=== PATIENT | female | born 1950 | race Hispanic/Latino ===

== ENCOUNTER 2019-06-26 18:21 | Emergency (ER) | payer MEDICARE, OTHER ==
[~2019-06-26] VITALS: Ht 165.1 cm; Wt 59.0 kg
--- OUTSIDE RECORDS SUMMARY | 2019-06-26 18:25 | XMS REPORT ---
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 Allergies, Adverse Reactions, Alerts Allergy Name Allergy Type Status Severity Reaction(s) Onset Date Inactive Date Treating Clinician Comments Sulfa (Sulfonamide Antibiotics) DA Active U 2019-03-04 00:00:00 aspirin DA Active U 2019-03-04 00:00:00 doxycycline DA Active U 2019-03-04 00:00:00 levofloxacin DA Active U 2019-03-04 00:00:00 cefdinir DA Active U 2019-03-04 00:00:00 Medications This patient has no known medications. Encounters Start Date/Time End Date/Time Encounter Type Admission Type Attending Clinicians Care Facility Care Department Encounter ID 2019-05-20 19:01:00 2019-05-20 19:01:00 Emergency E [facility] [id number] 2019-04-11 08:44:00 2019-04-11 08:44:00 Outpatient [facility] [id number] 2019-03-25 12:45:00 2019-03-25 12:45:00 Outpatient [facility] [id number] 2018-10-29 12:30:00 2018-10-29 12:30:00 Outpatient [facility] [id number] Results Test Description Test Time Test Comments Text Results Atomic Results Result Comments GLUBED 2019-04-29 12:25:00 GLUBED (test code=GLUBED) 160 MG/DL 70-110 Performed by certified strand forming machine operator at [facility] [id number] 08:51:00* Test Item Value Reference Range Comments GLUBED (test code=GLUBED) 138 MG/DL 70-110 Performed by certified strand forming machine operator at [facility] CBC W/AUTO [id number] 07:45:00* Test Item Value Reference Range Comments WHITE BLOOD CELL (test code=WBC) 7.42 x10 3/uL 4.5-11.0 RED BLOOD CELL (test code=RBC) 2.97 x10 6/uL 3.54-5.02 HEMOGLOBIN (test code=HGB) 8.2 g/dL 11.0-15.0 HEMATOCRIT (test code=HCT) 26.9 % 33.0-45.0 MEAN CELL VOLUME (test code=MCV) 90.6 fL 81.0-99.0 MEAN CELL HGB (test code=MCH) 27.6 pg 27.0-33.0 MEAN CELL HGB CONCETRATION (test code=MCHC) 30.5 g/dL 33.0-37.0 RED CELL DISTRIBUTION WIDTH CV (test code=RDW) 15.2 % 11.5-14.5 RED CELL DISTRIBUTION WIDTH SD (test code=RDW-SD) 50.6 fL 37.0-54.0 PLATELET COUNT (test code=PLT) 318 x10 3/uL 150-400 MEAN PLATELET VOLUME (test code=MPV) 9.7 fL 7.0-9.0 NEUTROPHIL % (test code=NT%) 80.4 % 56.0-77.0 IMMATURE GRANULOCYTE % (test code=IG%) 0.7 % 0.0-2.0 LYMPHOCYTE % (test code=LY%) 11.3 % 14.0-32.0 MONOCYTE % (test code=MO%) 7.0 % 4.8-9.0 EOSINOPHIL % (test code=EO%) 0.5 % 0.3-3.7 BASOPHIL % (test code=BA%) 0.1 % 0.0-2.0 NUCLEATED RBC % (test code=NRBC%) 0.0 % 0-0 NEUTROPHIL # (test code=NT#) 5.96 x10 3/uL 2.0-7.6 IMMATURE GRANULOCYTE # (test code=IG#) 0.05 x10 3/uL 0.00-0.03 LYMPHOCYTE # (test code=LY#) 0.84 x10 3/uL 1.0-3.8 MONOCYTE # (test code=MO#) 0.52 x10 3/uL 0.1-0.8 EOSINOPHIL # (test code=EO#) 0.04 x10 3/uL 0.0-0.2 BASOPHIL # (test code=BA#) 0.01 x10 3/uL 0.0-0.2 NUCLEATED RBC # (test code=NRBC#) 0.00 x10 3/uL 0.0-0.1 MANUAL DIFF REQUIRED (test code=MDIFF) NO BASIC METABOLIC [id number] 05:41:00* Test Item Value Reference Range Comments SODIUM (test code=NA) 132 mEq/L 134-147 POTASSIUM (test code=K) 4.8 mEq/L 3.4-5.0 CHLORIDE (test code=CL) 108 mEq/L 100-108 CARBON DIOXIDE (test code=CO2) 16 mEq/L 21-33 ANION GAP (test code=GAP) 13 0-20 GLUCOSE (test code=GLU) 174 mg/dL 70-110 BLOOD UREA NITROGEN (test code=BUN) 43 mg/dL 7-18 GLOMERULAR FILTRATION RATE (test code=GFR) 40.7 80-90 Units of measure=ml/min/1.73 m2 CREATININE (test code=CREAT) 1.3 mg/dL 0.6-1.3 CALCIUM (test code=CA) 7.5 mg/dL 8.0-10.5 [id number] 05:41:00* Test Item Value Reference Range Comments PHOSPHOROUS (test code=PHOS) 2.8 MG/DL 2.5-4.9 [id number] 05:41:00* Test Item Value Reference Range Comments MAGNESIUM (test code=MAG) 1.80 mg/dL 1.8-2.4 [id number] 05:19:00* Test Item Value Reference Range Comments GLUBED (test code=GLUBED) 138 MG/DL 70-110 Performed by certified strand forming machine operator at [facility] [id number] 18:03:00* Test Item Value Reference Range Comments GLUBED (test code=GLUBED) 161 MG/DL 70-110 Performed by certified strand forming machine operator at [facility] [id number] 10:36:00* Test Item Value Reference Range Comments GLUBED (test code=GLUBED) 96 MG/DL 70-110 Performed by certified strand forming machine operator at [facility] CBC W/AUTO [id number] 08:46:00* Test Item Value Reference Range Comments WHITE BLOOD CELL (test code=WBC) 10.16 x10 3/uL 4.5-11.0 RED BLOOD CELL (test code=RBC) 3.27 x10 6/uL 3.54-5.02 HEMOGLOBIN (test code=HGB) 9.3 g/dL 11.0-15.0 HEMATOCRIT (test code=HCT) 30.9 % 33.0-45.0 MEAN CELL VOLUME (test code=MCV) 94.5 fL 81.0-99.0 MEAN CELL HGB (test code=MCH) 28.4 pg 27.0-33.0 MEAN CELL HGB CONCETRATION (test code=MCHC) 30.1 g/dL 33.0-37.0 RED CELL DISTRIBUTION WIDTH CV (test code=RDW) 15.3 % 11.5-14.5 RED CELL DISTRIBUTION WIDTH SD (test code=RDW-SD) 53.0 fL 37.0-54.0 PLATELET COUNT (test code=PLT) 303 x10 3/uL 150-400 MEAN PLATELET VOLUME (test code=MPV) 10.0 fL 7.0-9.0 NEUTROPHIL % (test code=NT%) 72.1 % 56.0-77.0 IMMATURE GRANULOCYTE % (test code=IG%) 0.7 % 0.0-2.0 LYMPHOCYTE % (test code=LY%) 17.0 % 14.0-32.0 MONOCYTE % (test code=MO%) 8.0 % 4.8-9.0 EOSINOPHIL % (test code=EO%) 1.9 % 0.3-3.7 BASOPHIL % (test code=BA%) 0.3 % 0.0-2.0 NUCLEATED RBC % (test code=NRBC%) 0.0 % 0-0 NEUTROPHIL # (test code=NT#) 7.33 x10 3/uL 2.0-7.6 IMMATURE GRANULOCYTE # (test code=IG#) 0.07 x10 3/uL 0.00-0.03 LYMPHOCYTE # (test code=LY#) 1.73 x10 3/uL 1.0-3.8 MONOCYTE # (test code=MO#) 0.81 x10 3/uL 0.1-0.8 EOSINOPHIL # (test code=EO#) 0.19 x10 3/uL 0.0-0.2 BASOPHIL # (test code=BA#) 0.03 x10 3/uL 0.0-0.2 NUCLEATED RBC # (test code=NRBC#) 0.00 x10 3/uL 0.0-0.1 MANUAL DIFF REQUIRED (test code=MDIFF) NO BASIC METABOLIC [id number] 08:19:00* Test Item Value Reference Range Comments SODIUM (test code=NA) 132 mEq/L 134-147 POTASSIUM (test code=K) 4.7 mEq/L 3.4-5.0 CHLORIDE (test code=CL) 111 mEq/L 100-108 CARBON DIOXIDE (test code=CO2) 13 mEq/L 21-33 ANION GAP (test code=GAP) 13 0-20 GLUCOSE (test code=GLU) 105 mg/dL 70-110 BLOOD UREA NITROGEN (test code=BUN) 47 mg/dL 7-18 GLOMERULAR FILTRATION RATE (test code=GFR) 40.7 80-90 Units of measure=ml/min/1.73 m2 CREATININE (test code=CREAT) 1.3 mg/dL 0.6-1.3 CALCIUM (test code=CA) 8.1 mg/dL 8.0-10.5 [id number] 08:19:00* Test Item Value Reference Range Comments PHOSPHOROUS (test code=PHOS) 2.6 MG/DL 2.5-4.9 [id number] 08:19:00* Test Item Value Reference Range Comments MAGNESIUM (test code=MAG) 1.80 mg/dL 1.8-2.4 [id number] 07:31:00* Test Item Value Reference Range Comments GLUBED (test code=GLUBED) 134 MG/DL 70-110 Performed by certified strand forming machine operator at [facility] [id number] 07:31:00* Test Item Value Reference Range Comments GLUBED (test code=GLUBED) 124 MG/DL 70-110 Performed by certified strand forming machine operator at [facility] TOTAL IRON BINDING [id number] 16:14:00* Test Item Value Reference Range Comments SERUM IRON (test code=IRON) 22 mcg/dL 35-150 TOTAL IRON BINDING CAPACITY (test code=TIBC) 91 mcg/dL 260-445 UIBC (test code=UIBC) 69 mcg/dL IRON SATURATION (test code=FESAT) 24.2 % 34 VITAMIN [id number] 16:14:00* Test Item Value Reference Range Comments VITAMIN B12 (test code=VITB12) 988 pg/mL 193-986 [id number] 16:14:00* Test Item Value Reference Range Comments FERRITIN (test code=JASIEL) 202.9 ng/mL 11.0-306.8 VITAMIN D [id number] 16:14:00* Test Item Value Reference Range Comments VITAMIN D 25-HYDROXY (test code=VITD25) 18.5 ng/mL 30-100 SPECIMEN 1+ HEMOLYZED.Results known to be adversely affected by hemolysis are: Potassium Magnesium LDH Phosphorus TOTAL IRON BINDING [id number] 16:12:00* Test Item Value Reference Range Comments SERUM IRON (test code=IRON) 22 mcg/dL 35-150 TOTAL IRON BINDING CAPACITY (test code=TIBC) 91 mcg/dL 260-445 UIBC (test code=UIBC) 69 mcg/dL IRON SATURATION (test code=FESAT) 24.2 % VITAMIN [id number] 16:12:00* Test Item Value Reference Range Comments VITAMIN B12 (test code=VITB12) 988 pg/mL 193-986 [id number] 16:12:00* Test Item Value Reference Range Comments FERRITIN (test code=JASIEL) 202.9 ng/mL 11.0-306.8 VITAMIN D [id number] 16:12:00* Test Item Value Reference Range Comments VITAMIN D 25-HYDROXY (test code=VITD25) ng/mL 30-100 [id number] 14:10:00* Test Item Value Reference Range Comments GLUBED (test code=GLUBED) 101 MG/DL 70-110 Performed by certified strand forming machine operator at [facility] BASIC METABOLIC [id number] 11:00:00* Test Item Value Reference Range Comments SODIUM (test code=NA) 134 mEq/L 134-147 POTASSIUM (test code=K) 4.6 mEq/L 3.4-5.0 CHLORIDE (test code=CL) 108 mEq/L 100-108 CARBON DIOXIDE (test code=CO2) 20 mEq/L 21-33 ANION GAP (test code=GAP) 11 0-20 GLUCOSE (test code=GLU) 96 mg/dL 70-110 BLOOD UREA NITROGEN (test code=BUN) 53 mg/dL 7-18 GLOMERULAR FILTRATION RATE (test code=GFR) 34.5 80-90 Units of measure=ml/min/1.73 m2 CREATININE (test code=CREAT) 1.5 mg/dL 0.6-1.3 CALCIUM (test code=CA) 7.2 mg/dL 8.0-10.5 BASIC METABOLIC [id number] 10:57:00* Test Item Value Reference Range Comments SODIUM (test code=NA) 134 mEq/L 134-147 POTASSIUM (test code=K) 4.6 mEq/L 3.4-5.0 CHLORIDE (test code=CL) 108 mEq/L 100-108 CARBON DIOXIDE (test code=CO2) 20 mEq/L 21-33 ANION GAP (test code=GAP) 11 0-20 GLUCOSE (test code=GLU) 96 mg/dL 70-110 BLOOD UREA NITROGEN (test code=BUN) 53 mg/dL 7-18 GLOMERULAR FILTRATION RATE (test code=GFR) 80-90 CREATININE (test code=CREAT) mg/dL 0.6-1.3 CALCIUM (test code=CA) 7.2 mg/dL 8.0-10.5 LACTIC ACID [id number] 10:46:00* Test Item Value Reference Range Comments LACTIC ACID POC (test code=LACTP) 1.6 MMOL/L 0.90-1.70 Performed by certified strand forming machine operator at [facility] CHEMISTRY 8 [id number] 10:46:00* Test Item Value Reference Range Comments ISTAT-SODIUM (test code=NAP) MMOL/L 134-147 ISTAT-POTASSIUM (test code=KP) MMOL/L 3.4-5.0 ISTAT-CHLORIDE (test code=CLP) MMOL/L 100-108 ISTAT CARBON DIOXIDE (test code=ISTAT-CO2) mmol/L 21-33 ISTAT CALCIUM IONIZED (test code=ISTAT-IQRA) MG/DL 1.12-1.32 ISTAT-GLUCOSE (test code=GLUP) MG/DL 70-110 ISTAT-BUN (test code=BUNP) MG/DL 7-18 BEDSIDE CREATININE (test code=CREATBED) MG/DL 0.6-1.3 GLOMERULAR FILTRATION RATE POC (test code=GFRBED) 25 ML/MIN CHEMISTRY 8 [id number] 10:46:00* Test Item Value Reference Range Comments ISTAT-SODIUM (test code=NAP) 124 MMOL/L 134-147 ISTAT-POTASSIUM (test code=KP) 5.0 MMOL/L 3.4-5.0 ISTAT-CHLORIDE (test code=CLP) 95 MMOL/L 100-108 Performed by certified strand forming machine operator at [facility] ISTAT CARBON DIOXIDE (test code=ISTAT-CO2) 20.0 mmol/L 21-33 ISTAT CALCIUM IONIZED (test code=ISTAT-IQRA) 1.09 MG/DL 1.12-1.32 ISTAT-GLUCOSE (test code=GLUP) 180 MG/DL 70-110 ISTAT-BUN (test code=BUNP) 54 MG/DL 7-18 BEDSIDE CREATININE (test code=CREATBED) 2.1 MG/DL 0.6-1.3 GLOMERULAR FILTRATION RATE POC (test code=GFRBED) 25 ML/MIN CBC W/AUTO [id number] 10:40:00* Test Item Value Reference Range Comments WHITE BLOOD CELL (test code=WBC) 14.51 x10 3/uL 4.5-11.0 RED BLOOD CELL (test code=RBC) 2.77 x10 6/uL 3.54-5.02 HEMOGLOBIN (test code=HGB) 7.9 g/dL 11.0-15.0 HEMATOCRIT (test code=HCT) 25.1 % 33.0-45.0 MEAN CELL VOLUME (test code=MCV) 90.6 fL 81.0-99.0 MEAN CELL HGB (test code=MCH) 28.5 pg 27.0-33.0 MEAN CELL HGB CONCETRATION (test code=MCHC) 31.5 g/dL 33.0-37.0 RED CELL DISTRIBUTION WIDTH CV (test code=RDW) 15.0 % 11.5-14.5 RED CELL DISTRIBUTION WIDTH SD (test code=RDW-SD) 50.2 fL 37.0-54.0 PLATELET COUNT (test code=PLT) 278 x10 3/uL 150-400 MEAN PLATELET VOLUME (test code=MPV) 9.7 fL 7.0-9.0 NEUTROPHIL % (test code=NT%) 84.6 % 56.0-77.0 IMMATURE GRANULOCYTE % (test code=IG%) 0.8 % 0.0-2.0 LYMPHOCYTE % (test code=LY%) 6.5 % 14.0-32.0 MONOCYTE % (test code=MO%) 7.1 % 4.8-9.0 EOSINOPHIL % (test code=EO%) 0.7 % 0.3-3.7 BASOPHIL % (test code=BA%) 0.3 % 0.0-2.0 NUCLEATED RBC % (test code=NRBC%) 0.0 % 0-0 NEUTROPHIL # (test code=NT#) 12.27 x10 3/uL 2.0-7.6 IMMATURE GRANULOCYTE # (test code=IG#) 0.12 x10 3/uL 0.00-0.03 LYMPHOCYTE # (test code=LY#) 0.95 x10 3/uL 1.0-3.8 MONOCYTE # (test code=MO#) 1.03 x10 3/uL 0.1-0.8 EOSINOPHIL # (test code=EO#) 0.10 x10 3/uL 0.0-0.2 BASOPHIL # (test code=BA#) 0.04 x10 3/uL 0.0-0.2 NUCLEATED RBC # (test code=NRBC#) 0.00 x10 3/uL 0.0-0.1 MANUAL DIFF REQUIRED (test code=MDIFF) NO TROPONIN-I [id number] 10:33:00* Test Item Value Reference Range Comments TROPONIN-I RAPID (test code=TROPIRAP) 0.00 ng/mL 0.00-0.08 Performed by certified strand forming machine operator at [facility] Negative: <=0.08 Positive: >=0.09An elevated troponin value alone is not sufficient todiagnose a myocardial infarction. Rather, the patient sclinical presentation (history, physical exam) and ECGshould be used in conjunction with troponin in thediagnostic evaluation of suspected myocardial infarction. Aserial sampling protocol is recommended to facilitate the identification of temporal changes in troponin levels characteristic of [place]. HEPATIC FUNCTION [id number] 18:25:00* Test Item Value Reference Range Comments TOTAL PROTEIN (test code=PROT) 5.3 g/dL 6.4-8.2 ALBUMIN (test code=ALB) 1.80 g/dL 3.4-5.0 BILIRUBIN TOTAL (test code=BILT) 0.3 MG/DL <1.5 BILIRUBIN DIRECT (test code=BILD) < 0.10 MG/DL 0.0-0.30 BILIRUBIN INDIRECT (test code=BILIND) 0.20 MG/DL SGOT/AST (test code=AST) 8 IUnit/L 15-37 SGPT/ALT (test code=ALT) < 6 IUnit/L 15-65 ALKALINE PHOSPHATASE TOTAL (test code=ALKP) 92 IUnit/L 20-125 [id number] 18:25:00* Test Item Value Reference Range Comments LIPASE (test code=LIP) 49 IUnit/L 73-393 [id number] 18:25:00* Test Item Value Reference Range Comments MAGNESIUM (test code=MAG) 1.70 mg/dL 1.8-2.4 LACTIC ACID [id number] 18:18:00* Test Item Value Reference Range Comments LACTIC ACID POC (test code=LACTP) 1.6 MMOL/L 0.90-1.70 Performed by certified strand forming machine operator at [facility] PROTHROMBIN [id number] 18:18:00* Test Item Value Reference Range Comments PROTHROMBIN TIME PATIENT (test code=PTP) 13.7 SECONDS 9.3-12.9 INTERNATIONAL NORMAL RATIO (test code=INR) 1.3 0.8-1.2 TARGET INR BY INDICATION Indication INR1. Prophylaxis of venous thrombosis 2.0 - 3.0 (orthopedic surgery), Prophylaxis of venous thrombosis (other than high-risk surgery), Treatment of Deep Vein Thrombosis/Pulmonary Embolism, Prevention of systemic embolism - Tissue heart valves, Acute Myocardial Infarction (to prevent systemic embolism), Valvular heart disease, Atrial Fibrillation, Bileaflet mechanical valve in aortic position.2. Mechanical prosthetic valves (high risk), 2.5 - 3.5 Presence of Lupus Anticoagulant or Antiphospholipid Antibodies, Prevention of systemic embolism - Acute Myocardial Infarction (to prevent recurrent infarct). THROMBOPLASTIN TIME [id number] 18:18:00* Test Item Value Reference Range Comments THROMBOPLASTIN TIME PARTIAL (test code=PTT) 26.5 Seconds 25.0-39.5 Therapeutic Range: 50.4 - 88.3 Seconds Effective 08/13/2018 CHEMISTRY 8 [id number] 18:17:00* Test Item Value Reference Range Comments ISTAT-SODIUM (test code=NAP) MMOL/L 134-147 ISTAT-POTASSIUM (test code=KP) MMOL/L 3.4-5.0 ISTAT-CHLORIDE (test code=CLP) MMOL/L 100-108 ISTAT CARBON DIOXIDE (test code=ISTAT-CO2) mmol/L 21-33 ISTAT CALCIUM IONIZED (test code=ISTAT-IQRA) MG/DL 1.12-1.32 ISTAT-GLUCOSE (test code=GLUP) MG/DL 70-110 ISTAT-BUN (test code=BUNP) MG/DL 7-18 BEDSIDE CREATININE (test code=CREATBED) MG/DL 0.6-1.3 GLOMERULAR FILTRATION RATE POC (test code=GFRBED) 25 ML/MIN CHEMISTRY 8 [id number] 18:17:00* Test Item Value Reference Range Comments ISTAT-SODIUM (test code=NAP) 124 MMOL/L 134-147 ISTAT-POTASSIUM (test code=KP) 5.0 MMOL/L 3.4-5.0 ISTAT-CHLORIDE (test code=CLP) 95 MMOL/L 100-108 Performed by certified strand forming machine operator at [facility] ISTAT CARBON DIOXIDE (test code=ISTAT-CO2) 20.0 mmol/L 21-33 ISTAT CALCIUM IONIZED (test code=ISTAT-IQRA) 1.09 MG/DL 1.12-1.32 ISTAT-GLUCOSE (test code=GLUP) 180 MG/DL 70-110 ISTAT-BUN (test code=BUNP) 54 MG/DL 7-18 BEDSIDE CREATININE (test code=CREATBED) 2.1 MG/DL 0.6-1.3 GLOMERULAR FILTRATION RATE POC (test code=GFRBED) 25 ML/MIN TROPONIN-I [id number] 18:16:00* Test Item Value Reference Range Comments TROPONIN-I RAPID (test code=TROPIRAP) 0.00 ng/mL 0.00-0.08 Performed by certified strand forming machine operator at [facility] Negative: <=0.08 Positive: >=0.09An elevated troponin value alone is not sufficient todiagnose a myocardial infarction. Rather, the patient sclinical presentation (history, physical exam) and ECGshould be used in conjunction with troponin in thediagnostic evaluation of suspected myocardial infarction. Aserial sampling protocol is recommended to facilitate the identification of temporal changes in troponin levels characteristic of [place]. - CT HEAD/BRAIN W/O [id number] 18:12:00 Name: IQRA MATTHEW [facility] : 1950 Age/S: 68 / F [address] [place] [address] Unit #: [id number] Loc: [place] [address] Phys: Forest Bell MD Acct: [id number] Dis Date: Status: REG ER PHONE #: [phone] Exam Date: 04/26/2019 1748 FAX #: [phone] Reason: weakness EXAMS: CPT CODE: [id number] CT HEAD/BRAIN W/O CONT [address] HEAD INDICATION: weakness. TECHNIQUE: Unenhanced CT was performed from the skull vertex to the foramen magnum with axial, coronal and sagittal reconstructions. CT imaging performed at this location utilizes radiation dose optimization technique which includes one or more of the followin) Automated exposure control; 2) Adjustment of the mA and/or kV according to patient's size; 3) Use of iterative reconstruction techniques. DLP (mGy- cm): 420 COMPARISONS: None. FINDINGS: The paranasal sinuses are clear as visualized. There are trace bilateral mastoid air cell effusions. There are calcifications within the left optic globe and hyperdensity of the vitreous humor. There is a severe burden of atherosclerotic vascular calcification of the intracranial arteries. There are nonspecific calcifications of the basal ganglia. These are likely physiologic in a patient this age. There is mild ventriculomegaly due to white matter volume loss. There is no hydrocephalus. There is a moderately severe burden of hypodense lesions in the bilateral frontal parietal white matter. There is moderate generalized brain parenchymal volume loss. There is no cerebral mass ef fect, midline shift, intracranial hemorrhage or acute large vessel territo ry cerebral cortical edema. IMPRESSION: 1. Th ere is a moderately severe burden of hypodense lesions in the bilateral frontal parietal white matter. These are most likely chronic changes o f small vessel ischemic disease but there is no comparison available to evaluate stability. I cannot entirely exclude an acute or subacute lacu parvin infarct in this setting. If there is clinical concern of acute isch emia, consider follow-up MRI. 2. There is no cerebral mass effect, midl ine shift, intracranial hemorrhage or acute large vessel territory cereb ral cortical edema. 3. There are calcifications within the left optic g lobe and hyperdensity of the vitreous humor. These are probably surgica l PAGE 1 Signed Report (CONTINUED) Name: IQRA MATTHEW [facility] B: 1950 Age/S: 68 / F [address] [place] [address] Unit #: [id number] Loc: [place] [address] Phys: Forest Bell MD Acct: [id number] D is Date: Status: REG ER PHONE #: [phone] Exam Date: 04/26/2019 1748 FAX #: Reason: weakness EXAMS: CPT CODE: [id number] CT HEAD/BRAIN W/O CONT 81017 <Continued> changes. I cannot exclude posterior chamber hemorrhage in the left optic globe. 4. There are trace bilateral mastoid air cell effusions. at 1812 Reported and signed by: Jaime Chua D.O. CC: Tori Valdez Technologist:Ramy Hernandez, RT(R) CTDI: DLP: Trnscb Date/Time: 04/26/2019 (1811) [id number] Orig Print D/T: S: 04/26/2019 (1814) PAGE 2 Signed Report UA RFLX MICR CULT IF [id number] 18:11:00* Test Item Value Reference Range Comments UA COLOR (test code=COLU) YELLOW YEL/STRAW UA APPEARANCE (test code=APPU) SL CLOUDY CLEAR UA GLUCOSE DIPSTICK (test code=DGLUU) NEGATIVE NEGATIVE UA BILIRUBIN DIPSTICK (test code=BILU) NEGATIVE NEGATIVE UA KETONE DIPSTICK (test code=KETU) NEGATIVE NEGATIVE UA SPECIFIC GRAVITY (test code=SGU) 1.010 1.005-1.030 UA BLOOD DIPSTICK (test code=OTONIEL) NEGATIVE NEGATIVE UA PH DIPSTICK (test code=CARLOS) 5.0 5.0-7.0 UA PROTEIN DIPSTICK (test code=PROU) NEGATIVE NEGATIVE UA UROBILINIOGEN DIPSTICK (test code=URO) 0.2 mg/dL 0.2-1.0 UA NITRITE DIPSTICK (test code=BRENNEN) NEGATIVE NEGATIVE UA LEUKOCYTE ESTERASE DIPSTICK (test code=LEUU) 2+ NEGATIVE UA WBC (test code=WBCU) 21-50 WBC/HPF 0-3 UA RBC (test code=RBCU) 0-3 RBC/HPF 0-3 UA WBC NO REFLEX (test code=WBCUCL) 21-50 WBC/HPF 0-3 UA BACTERIA (test code=BACU) 4+ /HPF NONE SEEN UA SQUAMOUS CELLS (test code=SQU) 0-5 /HPF NONE SEEN UA MUCUS (test code=MUCU) TRACE /LPF NONE SEEN Indication for culture: Dysuria/FrequencySpecimen Description: CLEAN CATCH CBC W/AUTO [id number] 18:07:00* Test Item Value Reference Range Comments WHITE BLOOD CELL (test code=WBC) 18.15 x10 3/uL 4.5-11.0 RED BLOOD CELL (test code=RBC) 3.00 x10 6/uL 3.54-5.02 HEMOGLOBIN (test code=HGB) 8.5 g/dL 11.0-15.0 HEMATOCRIT (test code=HCT) 27.0 % 33.0-45.0 MEAN CELL VOLUME (test code=MCV) 90.0 fL 81.0-99.0 MEAN CELL HGB (test code=MCH) 28.3 pg 27.0-33.0 MEAN CELL HGB CONCETRATION (test code=MCHC) 31.5 g/dL 33.0-37.0 RED CELL DISTRIBUTION WIDTH CV (test code=RDW) 15.2 % 11.5-14.5 RED CELL DISTRIBUTION WIDTH SD (test code=RDW-SD) 50.1 fL 37.0-54.0 PLATELET COUNT (test code=PLT) 315 x10 3/uL 150-400 MEAN PLATELET VOLUME (test code=MPV) 9.9 fL 7.0-9.0 NEUTROPHIL % (test code=NT%) 87.7 % 56.0-77.0 IMMATURE GRANULOCYTE % (test code=IG%) 0.5 % 0.0-2.0 LYMPHOCYTE % (test code=LY%) 4.2 % 14.0-32.0 MONOCYTE % (test code=MO%) 7.1 % 4.8-9.0 EOSINOPHIL % (test code=EO%) 0.4 % 0.3-3.7 BASOPHIL % (test code=BA%) 0.1 % 0.0-2.0 NUCLEATED RBC % (test code=NRBC%) 0.0 % 0-0 NEUTROPHIL # (test code=NT#) 15.92 x10 3/uL 2.0-7.6 IMMATURE GRANULOCYTE # (test code=IG#) 0.09 x10 3/uL 0.00-0.03 LYMPHOCYTE # (test code=LY#) 0.76 x10 3/uL 1.0-3.8 MONOCYTE # (test code=MO#) 1.29 x10 3/uL 0.1-0.8 EOSINOPHIL # (test code=EO#) 0.07 x10 3/uL 0.0-0.2 BASOPHIL # (test code=BA#) 0.02 x10 3/uL 0.0-0.2 NUCLEATED RBC # (test code=NRBC#) 0.00 x10 3/uL 0.0-0.1 MANUAL DIFF REQUIRED (test code=MDIFF) NO [id number] 09:10:00* Test Item Value Reference Range Comments TACROLIMUS (test code=TACRO) 4.5 ng/mL 2.0-20.0 Trough (immediately following transplant) 15.0 Trough (steady state, 2 weeks or more after transplant): 3.0 - 8.0 Detection Limit=1.0 Performed by LC-MS/MS technology. This test was developed and its performance characteristics determined by [facility]. It has not been cleared or approved by the Food and Drug Administration.Performed At: [address] [place], [place] [id number] Sanjai MD Ph:[phone] COMMENTS: PLEASE DRAW BEFORE GIVING AM [id number] 13:50:00* Test Item Value Reference Range Comments GLUBED (test code=GLUBED) 158 MG/DL 70-110 Performed by certified strand forming machine operator at [facility] BASIC METABOLIC [id number] 08:00:00* Test Item Value Reference Range Comments SODIUM (test code=NA) 140 mEq/L 134-147 POTASSIUM (test code=K) 4.0 mEq/L 3.4-5.0 CHLORIDE (test code=CL) 112 mEq/L 100-108 CARBON DIOXIDE (test code=CO2) 22 mEq/L 21-33 ANION GAP (test code=GAP) 10 0-20 GLUCOSE (test code=GLU) 147 mg/dL 70-110 BLOOD UREA NITROGEN (test code=BUN) 27 mg/dL 7-18 GLOMERULAR FILTRATION RATE (test code=GFR) 49.4 80-90 Units of measure=ml/min/1.73 m2 CREATININE (test code=CREAT) 1.1 mg/dL 0.6-1.3 CALCIUM (test code=CA) 7.2 mg/dL 8.0-10.5 [id number] 08:00:00* Test Item Value Reference Range Comments PHOSPHOROUS (test code=PHOS) 2.3 MG/DL 2.5-4.9 [id number] 08:00:00* Test Item Value Reference Range Comments MAGNESIUM (test code=MAG) 1.90 mg/dL 1.8-2.4 [id number] 05:56:00* Test Item Value Reference Range Comments GLUBED (test code=GLUBED) 144 MG/DL 70-110 Performed by certified strand forming machine operator at [facility] [id number] 00:24:00* Test Item Value Reference Range Comments GLUBED (test code=GLUBED) 200 MG/DL 70-110 Performed by certified strand forming machine operator at [facility] [id number] 17:08:00* Test Item Value Reference Range Comments GLUBED (test code=GLUBED) 261 MG/DL 70-110 Performed by certified strand forming machine operator at [facility] [id number] 11:34:00* Test Item Value Reference Range Comments GLUBED (test code=GLUBED) 165 MG/DL 70-110 Performed by certified strand forming machine operator at [facility] BASIC METABOLIC [id number] 07:49:00* Test Item Value Reference Range Comments SODIUM (test code=NA) 140 mEq/L 134-147 POTASSIUM (test code=K) 4.0 mEq/L 3.4-5.0 CHLORIDE (test code=CL) 115 mEq/L 100-108 CARBON DIOXIDE (test code=CO2) 20 mEq/L 21-33 ANION GAP (test code=GAP) 9 0-20 GLUCOSE (test code=GLU) 110 mg/dL 70-110 BLOOD UREA NITROGEN (test code=BUN) 31 mg/dL 7-18 GLOMERULAR FILTRATION RATE (test code=GFR) 44.7 80-90 Units of measure=ml/min/1.73 m2 CREATININE (test code=CREAT) 1.2 mg/dL 0.6-1.3 CALCIUM (test code=CA) 7.3 mg/dL 8.0-10.5 [id number] 07:49:00* Test Item Value Reference Range Comments PHOSPHOROUS (test code=PHOS) 2.6 MG/DL 2.5-4.9 [id number] 07:49:00* Test Item Value Reference Range Comments MAGNESIUM (test code=MAG) 1.90 mg/dL 1.8-2.4 CALCIUM [id number] 07:49:00* Test Item Value Reference Range Comments CALCIUM IONIZED (test code=IQRA) 1.17 MMOL/L 1.12-1.32 VITAMIN D [id number] 07:49:00* Test Item Value Reference Range Comments VITAMIN D 25-HYDROXY (test code=VITD25) 19.9 ng/mL 30-100 BASIC METABOLIC [id number] 07:30:00* Test Item Value Reference Range Comments SODIUM (test code=NA) 140 mEq/L 134-147 POTASSIUM (test code=K) 4.0 mEq/L 3.4-5.0 CHLORIDE (test code=CL) 115 mEq/L 100-108 CARBON DIOXIDE (test code=CO2) 20 mEq/L 21-33 ANION GAP (test code=GAP) 9 0-20 GLUCOSE (test code=GLU) 110 mg/dL 70-110 BLOOD UREA NITROGEN (test code=BUN) 31 mg/dL 7-18 GLOMERULAR FILTRATION RATE (test code=GFR) 44.7 80-90 Units of measure=ml/min/1.73 m2 CREATININE (test code=CREAT) 1.2 mg/dL 0.6-1.3 CALCIUM (test code=CA) 7.3 mg/dL 8.0-10.5 [id number] 07:30:00* Test Item Value Reference Range Comments PHOSPHOROUS (test code=PHOS) 2.6 MG/DL 2.5-4.9 [id number] 07:30:00* Test Item Value Reference Range Comments MAGNESIUM (test code=MAG) 1.90 mg/dL 1.8-2.4 CALCIUM [id number] 07:30:00* Test Item Value Reference Range Comments CALCIUM IONIZED (test code=IQRA) 1.17 MMOL/L 1.12-1.32 VITAMIN D [id number] 07:30:00* Test Item Value Reference Range Comments VITAMIN D 25-HYDROXY (test code=VITD25) ng/mL 30-100 CBC W/AUTO [id number] 07:28:00* Test Item Value Reference Range Comments WHITE BLOOD CELL (test code=WBC) 8.71 x10 3/uL 4.5-11.0 RED BLOOD CELL (test code=RBC) 3.21 x10 6/uL 3.54-5.02 HEMOGLOBIN (test code=HGB) 9.0 g/dL 11.0-15.0 HEMATOCRIT (test code=HCT) 29.5 % 33.0-45.0 MEAN CELL VOLUME (test code=MCV) 91.9 fL 81.0-99.0 MEAN CELL HGB (test code=MCH) 28.0 pg 27.0-33.0 MEAN CELL HGB CONCETRATION (test code=MCHC) 30.5 g/dL 33.0-37.0 RED CELL DISTRIBUTION WIDTH CV (test code=RDW) 17.7 % 11.5-14.5 RED CELL DISTRIBUTION WIDTH SD (test code=RDW-SD) 59.7 fL 37.0-54.0 PLATELET COUNT (test code=PLT) 211 x10 3/uL 150-400 MEAN PLATELET VOLUME (test code=MPV) 10.6 fL 7.0-9.0 NEUTROPHIL % (test code=NT%) 71.2 % 56.0-77.0 IMMATURE GRANULOCYTE % (test code=IG%) 0.6 % 0.0-2.0 LYMPHOCYTE % (test code=LY%) 17.5 % 14.0-32.0 MONOCYTE % (test code=MO%) 7.7 % 4.8-9.0 EOSINOPHIL % (test code=EO%) 2.5 % 0.3-3.7 BASOPHIL % (test code=BA%) 0.5 % 0.0-2.0 NUCLEATED RBC % (test code=NRBC%) 0.0 % 0-0 NEUTROPHIL # (test code=NT#) 6.21 x10 3/uL 2.0-7.6 IMMATURE GRANULOCYTE # (test code=IG#) 0.05 x10 3/uL 0.00-0.03 LYMPHOCYTE # (test code=LY#) 1.52 x10 3/uL 1.0-3.8 MONOCYTE # (test code=MO#) 0.67 x10 3/uL 0.1-0.8 EOSINOPHIL # (test code=EO#) 0.22 x10 3/uL 0.0-0.2 BASOPHIL # (test code=BA#) 0.04 x10 3/uL 0.0-0.2 NUCLEATED RBC # (test code=NRBC#) 0.00 x10 3/uL 0.0-0.1 MANUAL DIFF REQUIRED (test code=MDIFF) NO BASIC METABOLIC [id number] 07:18:00* Test Item Value Reference Range Comments SODIUM (test code=NA) mEq/L 134-147 POTASSIUM (test code=K) mEq/L 3.4-5.0 CHLORIDE (test code=CL) mEq/L 100-108 CARBON DIOXIDE (test code=CO2) mEq/L 21-33 ANION GAP (test code=GAP) 0-20 GLUCOSE (test code=GLU) mg/dL 70-110 BLOOD UREA NITROGEN (test code=BUN) mg/dL 7-18 GLOMERULAR FILTRATION RATE (test code=GFR) 80-90 CREATININE (test code=CREAT) mg/dL 0.6-1.3 CALCIUM (test code=CA) mg/dL 8.0-10.5 [id number] 07:18:00* Test Item Value Reference Range Comments PHOSPHOROUS (test code=PHOS) MG/DL 2.5-4.9 [id number] 07:18:00* Test Item Value Reference Range Comments MAGNESIUM (test code=MAG) mg/dL 1.8-2.4 CALCIUM [id number] 07:18:00* Test Item Value Reference Range Comments CALCIUM IONIZED (test code=IQRA) 1.17 MMOL/L 1.12-1.32 VITAMIN D [id number] 07:18:00* Test Item Value Reference Range Comments VITAMIN D 25-HYDROXY (test code=VITD25) ng/mL 30-100 [id number] 05:42:00* Test Item Value Reference Range Comments GLUBED (test code=GLUBED) 108 MG/DL 70-110 Performed by certified strand forming machine operator at [facility] [id number] 23:54:00* Test Item Value Reference Range Comments GLUBED (test code=GLUBED) 134 MG/DL 70-110 Performed by certified strand forming machine operator at [facility] [id number] 17:50:00* Test Item Value Reference Range Comments GLUBED (test code=GLUBED) 175 MG/DL 70-110 Performed by certified strand forming machine operator at [facility] [id number] 11:37:00* Test Item Value Reference Range Comments GLUBED (test code=GLUBED) 130 MG/DL 70-110 Performed by certified strand forming machine operator at [facility] BASIC METABOLIC [id number] 08:00:00* Test Item Value Reference Range Comments SODIUM (test code=NA) 143 mEq/L 134-147 POTASSIUM (test code=K) 3.6 mEq/L 3.4-5.0 CHLORIDE (test code=CL) 121 mEq/L 100-108 CARBON DIOXIDE (test code=CO2) 14 mEq/L 21-33 ANION GAP (test code=GAP) 12 0-20 GLUCOSE (test code=GLU) 135 mg/dL 70-110 BLOOD UREA NITROGEN (test code=BUN) 33 mg/dL 7-18 GLOMERULAR FILTRATION RATE (test code=GFR) 49.4 80-90 Units of measure=ml/min/1.73 m2 CREATININE (test code=CREAT) 1.1 mg/dL 0.6-1.3 CALCIUM (test code=CA) 5.7 mg/dL 8.0-10.5 [id number] 08:00:00* Test Item Value Reference Range Comments PHOSPHOROUS (test code=PHOS) 2.3 MG/DL 2.5-4.9 [id number] 08:00:00* Test Item Value Reference Range Comments MAGNESIUM (test code=MAG) 1.30 mg/dL 1.8-2.4 [id number] 06:21:00* Test Item Value Reference Range Comments GLUBED (test code=GLUBED) 157 MG/DL 70-110 Performed by certified strand forming machine operator at [facility] [id number] 00:21:00* Test Item Value Reference Range Comments GLUBED (test code=GLUBED) 214 MG/DL 70-110 Performed by certified strand forming machine operator at [facility] URINALYSIS [id number] 18:18:00* Test Item Value Reference Range Comments UA COLOR (test code=COLU) YELLOW YEL/STRAW UA APPEARANCE (test code=APPU) SL CLOUDY CLEAR UA GLUCOSE DIPSTICK (test code=DGLUU) NEGATIVE NEGATIVE UA BILIRUBIN DIPSTICK (test code=BILU) NEGATIVE NEGATIVE UA KETONE DIPSTICK (test code=KETU) NEGATIVE NEGATIVE UA SPECIFIC GRAVITY (test code=SGU) 1.008 1.005-1.030 UA BLOOD DIPSTICK (test code=OTONIEL) NEGATIVE NEGATIVE UA PH DIPSTICK (test code=CARLOS) 5.0 5.0-7.0 UA PROTEIN DIPSTICK (test code=PROU) NEGATIVE NEGATIVE UA UROBILINIOGEN DIPSTICK (test code=URO) 0.2 mg/dL 0.2-1.0 UA NITRITE DIPSTICK (test code=BRENNEN) NEGATIVE NEGATIVE UA LEUKOCYTE ESTERASE DIPSTICK (test code=LEUU) 1+ NEGATIVE UA RBC (test code=RBCU) 0-3 RBC/HPF 0-3 UA WBC NO REFLEX (test code=WBCUCL) 4-9 WBC/HPF 0-3 UA BACTERIA (test code=BACU) NONE SEEN /HPF NONE SEEN UA SQUAMOUS CELLS (test code=SQU) 0-5 /HPF NONE SEEN UA MUCUS (test code=MUCU) TRACE /LPF NONE SEEN UR PROTEIN [id number] 18:18:00* Test Item Value Reference Range Comments UR PROTEIN RANDOM (test code=PROTU) 19 mg/dL Note: Change in UNITS of MEASUREMENT. The Reference Range and Method Performance specificationshave not been established for this fluid. The test resultshould be correlated into the clinical context forinterpretation. UR CREATININE [id number] 18:18:00* Test Item Value Reference Range Comments UR CREATININE RANDOM (test code=CREATU) 56.7 mg/dL The Reference Range and Method Performance specificationshave not been established for this fluid. The test resultshould be correlated into the clinical context forinterpretation. URINALYSIS [id number] 18:08:00* Test Item Value Reference Range Comments UA COLOR (test code=COLU) YELLOW YEL/STRAW UA APPEARANCE (test code=APPU) SL CLOUDY CLEAR UA GLUCOSE DIPSTICK (test code=DGLUU) NEGATIVE NEGATIVE UA BILIRUBIN DIPSTICK (test code=BILU) NEGATIVE NEGATIVE UA KETONE DIPSTICK (test code=KETU) NEGATIVE NEGATIVE UA SPECIFIC GRAVITY (test code=SGU) 1.008 1.005-1.030 UA BLOOD DIPSTICK (test code=OTONIEL) NEGATIVE NEGATIVE UA PH DIPSTICK (test code=CARLOS) 5.0 5.0-7.0 UA PROTEIN DIPSTICK (test code=PROU) NEGATIVE NEGATIVE UA UROBILINIOGEN DIPSTICK (test code=URO) 0.2 mg/dL 0.2-1.0 UA NITRITE DIPSTICK (test code=BRENNEN) NEGATIVE NEGATIVE UA LEUKOCYTE ESTERASE DIPSTICK (test code=LEUU) 1+ NEGATIVE UA RBC (test code=RBCU) 0-3 RBC/HPF 0-3 UA WBC NO REFLEX (test code=WBCUCL) 4-9 WBC/HPF 0-3 UA BACTERIA (test code=BACU) NONE SEEN /HPF NONE SEEN UA SQUAMOUS CELLS (test code=SQU) 0-5 /HPF NONE SEEN UA MUCUS (test code=MUCU) TRACE /LPF NONE SEEN UR PROTEIN [id number] 18:08:00* Test Item Value Reference Range Comments UR PROTEIN RANDOM (test code=PROTU) mg/dL UR CREATININE [id number] 18:08:00* Test Item Value Reference Range Comments UR CREATININE RANDOM (test code=CREATU) mg/dL [id number] 18:08:00* Test Item Value Reference Range Comments GLUBED (test code=GLUBED) 249 MG/DL 70-110 Performed by certified strand forming machine operator at [facility] CBC W/AUTO [id number] 11:15:00* Test Item Value Reference Range Comments WHITE BLOOD CELL (test code=WBC) 13.88 x10 3/uL 4.5-11.0 RED BLOOD CELL (test code=RBC) 3.55 x10 6/uL 3.54-5.02 HEMOGLOBIN (test code=HGB) 10.0 g/dL 11.0-15.0 HEMATOCRIT (test code=HCT) 32.9 % 33.0-45.0 MEAN CELL VOLUME (test code=MCV) 92.7 fL 81.0-99.0 MEAN CELL HGB (test code=MCH) 28.2 pg 27.0-33.0 MEAN CELL HGB CONCETRATION (test code=MCHC) 30.4 g/dL 33.0-37.0 RED CELL DISTRIBUTION WIDTH CV (test code=RDW) 17.4 % 11.5-14.5 RED CELL DISTRIBUTION WIDTH SD (test code=RDW-SD) 59.6 fL 37.0-54.0 PLATELET COUNT (test code=PLT) 157 x10 3/uL 150-400 MEAN PLATELET VOLUME (test code=MPV) 11.6 fL 7.0-9.0 NEUTROPHIL % (test code=NT%) 86.2 % 56.0-77.0 IMMATURE GRANULOCYTE % (test code=IG%) 0.6 % 0.0-2.0 LYMPHOCYTE % (test code=LY%) 4.4 % 14.0-32.0 MONOCYTE % (test code=MO%) 7.5 % 4.8-9.0 EOSINOPHIL % (test code=EO%) 0.9 % 0.3-3.7 BASOPHIL % (test code=BA%) 0.4 % 0.0-2.0 NUCLEATED RBC % (test code=NRBC%) 0.0 % 0-0 NEUTROPHIL # (test code=NT#) 11.98 x10 3/uL 2.0-7.6 IMMATURE GRANULOCYTE # (test code=IG#) 0.08 x10 3/uL 0.00-0.03 LYMPHOCYTE # (test code=LY#) 0.61 x10 3/uL 1.0-3.8 MONOCYTE # (test code=MO#) 1.04 x10 3/uL 0.1-0.8 EOSINOPHIL # (test code=EO#) 0.12 x10 3/uL 0.0-0.2 BASOPHIL # (test code=BA#) 0.05 x10 3/uL 0.0-0.2 NUCLEATED RBC # (test code=NRBC#) 0.00 x10 3/uL 0.0-0.1 MANUAL DIFF REQUIRED (test code=MDIFF) NO SLIDE REVIEWED, CONSISTENT WITH AUTO DIFF. CBC W/AUTO [id number] 11:15:00* Test Item Value Reference Range Comments WHITE BLOOD CELL (test code=WBC) 13.88 x10 3/uL 4.5-11.0 RED BLOOD CELL (test code=RBC) 3.55 x10 6/uL 3.54-5.02 HEMOGLOBIN (test code=HGB) 10.0 g/dL 11.0-15.0 HEMATOCRIT (test code=HCT) 32.9 % 33.0-45.0 MEAN CELL VOLUME (test code=MCV) 92.7 fL 81.0-99.0 MEAN CELL HGB (test code=MCH) 28.2 pg 27.0-33.0 MEAN CELL HGB CONCETRATION (test code=MCHC) 30.4 g/dL 33.0-37.0 RED CELL DISTRIBUTION WIDTH CV (test code=RDW) 17.4 % 11.5-14.5 RED CELL DISTRIBUTION WIDTH SD (test code=RDW-SD) 59.6 fL 37.0-54.0 PLATELET COUNT (test code=PLT) 157 x10 3/uL 150-400 MEAN PLATELET VOLUME (test code=MPV) 11.6 fL 7.0-9.0 NEUTROPHIL % (test code=NT%) 86.2 % 56.0-77.0 IMMATURE GRANULOCYTE % (test code=IG%) 0.6 % 0.0-2.0 LYMPHOCYTE % (test code=LY%) 4.4 % 14.0-32.0 MONOCYTE % (test code=MO%) 7.5 % 4.8-9.0 EOSINOPHIL % (test code=EO%) 0.9 % 0.3-3.7 BASOPHIL % (test code=BA%) 0.4 % 0.0-2.0 NUCLEATED RBC % (test code=NRBC%) 0.0 % 0-0 NEUTROPHIL # (test code=NT#) 11.98 x10 3/uL 2.0-7.6 IMMATURE GRANULOCYTE # (test code=IG#) 0.08 x10 3/uL 0.00-0.03 LYMPHOCYTE # (test code=LY#) 0.61 x10 3/uL 1.0-3.8 MONOCYTE # (test code=MO#) 1.04 x10 3/uL 0.1-0.8 EOSINOPHIL # (test code=EO#) 0.12 x10 3/uL 0.0-0.2 BASOPHIL # (test code=BA#) 0.05 x10 3/uL 0.0-0.2 NUCLEATED RBC # (test code=NRBC#) 0.00 x10 3/uL 0.0-0.1 MANUAL DIFF REQUIRED (test code=MDIFF) NO SLIDE REVIEWED, CONSISTENT WITH AUTO DIFF. BASIC METABOLIC [id number] 10:37:00* Test Item Value Reference Range Comments SODIUM (test code=NA) 133 mEq/L 134-147 POTASSIUM (test code=K) 4.7 mEq/L 3.4-5.0 CHLORIDE (test code=CL) 109 mEq/L 100-108 CARBON DIOXIDE (test code=CO2) 17 mEq/L 21-33 ANION GAP (test code=GAP) 12 0-20 GLUCOSE (test code=GLU) 115 mg/dL 70-110 BLOOD UREA NITROGEN (test code=BUN) 44 mg/dL 7-18 GLOMERULAR FILTRATION RATE (test code=GFR) 32.1 80-90 Units of measure=ml/min/1.73 m2 CREATININE (test code=CREAT) 1.6 mg/dL 0.6-1.3 CALCIUM (test code=CA) 7.5 mg/dL 8.0-10.5 BASIC METABOLIC [id number] 10:37:00* Test Item Value Reference Range Comments SODIUM (test code=NA) 133 mEq/L 134-147 POTASSIUM (test code=K) 4.7 mEq/L 3.4-5.0 CHLORIDE (test code=CL) 109 mEq/L 100-108 CARBON DIOXIDE (test code=CO2) 17 mEq/L 21-33 ANION GAP (test code=GAP) 12 0-20 GLUCOSE (test code=GLU) 115 mg/dL 70-110 BLOOD UREA NITROGEN (test code=BUN) 44 mg/dL 7-18 GLOMERULAR FILTRATION RATE (test code=GFR) 32.1 80-90 Units of measure=ml/min/1.73 m2 CREATININE (test code=CREAT) 1.6 mg/dL 0.6-1.3 CALCIUM (test code=CA) 7.5 mg/dL 8.0-10.5 BASIC METABOLIC [id number] 10:33:00* Test Item Value Reference Range Comments SODIUM (test code=NA) 133 mEq/L 134-147 POTASSIUM (test code=K) 4.7 mEq/L 3.4-5.0 CHLORIDE (test code=CL) 109 mEq/L 100-108 CARBON DIOXIDE (test code=CO2) 17 mEq/L 21-33 ANION GAP (test code=GAP) 12 0-20 GLUCOSE (test code=GLU) 115 mg/dL 70-110 BLOOD UREA NITROGEN (test code=BUN) 44 mg/dL 7-18 GLOMERULAR FILTRATION RATE (test code=GFR) 80-90 CREATININE (test code=CREAT) mg/dL 0.6-1.3 CALCIUM (test code=CA) 7.5 mg/dL 8.0-10.5 BASIC METABOLIC [id number] 10:33:00* Test Item Value Reference Range Comments SODIUM (test code=NA) 133 mEq/L 134-147 POTASSIUM (test code=K) 4.7 mEq/L 3.4-5.0 CHLORIDE (test code=CL) 109 mEq/L 100-108 CARBON DIOXIDE (test code=CO2) 17 mEq/L 21-33 ANION GAP (test code=GAP) 12 0-20 GLUCOSE (test code=GLU) 115 mg/dL 70-110 BLOOD UREA NITROGEN (test code=BUN) 44 mg/dL 7-18 GLOMERULAR FILTRATION RATE (test code=GFR) 80-90 CREATININE (test code=CREAT) mg/dL 0.6-1.3 CALCIUM (test code=CA) 7.5 mg/dL 8.0-10.5 CBC W/AUTO [id number] 10:23:00* Test Item Value Reference Range Comments WHITE BLOOD CELL (test code=WBC) 13.88 x10 3/uL 4.5-11.0 RED BLOOD CELL (test code=RBC) 3.55 x10 6/uL 3.54-5.02 HEMOGLOBIN (test code=HGB) 10.0 g/dL 11.0-15.0 HEMATOCRIT (test code=HCT) 32.9 % 33.0-45.0 MEAN CELL VOLUME (test code=MCV) 92.7 fL 81.0-99.0 MEAN CELL HGB (test code=MCH) 28.2 pg 27.0-33.0 MEAN CELL HGB CONCETRATION (test code=MCHC) 30.4 g/dL 33.0-37.0 RED CELL DISTRIBUTION WIDTH CV (test code=RDW) 17.4 % 11.5-14.5 RED CELL DISTRIBUTION WIDTH SD (test code=RDW-SD) 59.6 fL 37.0-54.0 PLATELET COUNT (test code=PLT) 157 x10 3/uL 150-400 MEAN PLATELET VOLUME (test code=MPV) 11.6 fL 7.0-9.0 NEUTROPHIL % (test code=NT%) % 56.0-77.0 LYMPHOCYTE % (test code=LY%) % 14.0-32.0 NEUTROPHIL # (test code=NT#) x10 3/uL 2.0-7.6 LYMPHOCYTE # (test code=LY#) x10 3/uL 1.0-3.8 MANUAL DIFF REQUIRED (test code=MDIFF) [id number] 06:29:00* Test Item Value Reference Range Comments GLUBED (test code=GLUBED) 120 MG/DL 70-110 Performed by certified strand forming machine operator at [facility] [id number] 00:26:00* Test Item Value Reference Range Comments GLUBED (test code=GLUBED) 171 MG/DL 70-110 Performed by certified strand forming machine operator at [facility] PROCALCITONIN (PCT)2019-03-04 20:11:00* Test Item Value Reference Range Comments PROCALCITONIN (PCT) (test code=PROCAL) 1.06 ng/mL 0.00-0.05 PROCALCITONIN (PCT) NORMAL RANGE (ADULT): <0.05 NG/ML. * a concentration <0.5 ng/mL represents a low risk of severe sepsis and/or septic shock.* a concentration >2 ng/mL represents a high risk of severe sepsis and/or septic shock.Nevertheless, concentrations <0.5 ng/mL do not exclude aninfection, on account of localized infections (withoutsystemic signs) which can be associated with such lowconcentrations, or a systemic infection in its initialstages (< 6 hours). Furthermore, increased procalcitonincan occur without infection. PCT concentrations between 0.5and 2.0 ng/mL should be interpreted taking into account thepatient's history. It is recommended to retest PCT within6-24 hours if any concentrations <2 ng/mL are obtained. [id number] 19:54:00* Test Item Value Reference Range Comments GLUBED (test code=GLUBED) 251 MG/DL 70-110 Performed by certified strand forming machine operator at [facility] - CT ABD PELVIS W/O [id number] 17:35:00 Name: IQRA MATTHEW [facility] : 1950 Age/S: 68 / F [address] [place] [address] Unit #: [id number] Loc: [place] [address] Phys: Maximo Roblero MD Acct: [id number] Dis Date: Status: REG ER PHONE #: [phone] Exam Date: 03/04/2019 1711 FAX #: [phone] Reason: pelvic pain, diarrhea EXAMS: CPT CODE: [id number] CT ABD PELVIS W/O CONT 87739 CT ABDOMEN AND PELVIS WITHOUT CONTRAST INDICATION: Right lower quadrant pelvic pain, diarrhea. TECHNIQUE: Unenhanced CT imaging of the abdomen and pelvis with axial, coronal and sagittal reconstructions. CT imaging performed at this location utilizes radiation dose optimization technique which includes one or more of the followin) Automated exposure control; 2) Adjustment of the mA and/or kV according to patient's size; 3) Use of iterative reconstruction techniques. DLP (mGy-cm): 563 COMPARISONS: None. FINDINGS: There is no acute osseous fracture or di slocation. There is mild body wall anasarca. There are chronic arriaza rgical changes of ventral abdominal wall herniorrhaphy. There is no recur rent hernia. There is a severe burden of atherosclerotic calcification of the coronary arteries. There is moderate at herosclerotic vascular calcification of the aorta. The aorta reveals no an eurysm or acute process. The inferior vena cava reveals no acute process. There is a 5 mm noncalcified subpleural right lower lobe pulmonary nodule on axial image 10 of series 2. There is a 3 mm noncalcified right middle lobe pulmonary nodule on axial image 7 of series 2. There is a 4 mm noncalcified left lower lobe subpleural pulmonary nodule on axial image 15 of series 2. The lung bases reveal no acute process. There is no acute hepatic process. The gallbladder is surgically absent. The pancreas reveals no acute process. There is moderate pancre atic atrophy. The spleen reveals no acute process. There are calcified granulomas in the spleen. The adrenal glands reve al no acute process or mass. PAGE 1 Signed Report (CONTINUED) Name: IQRA MATTHEW [facility] : 1950 Age/S: 68 / F [address] Unit #: [id number] Loc: [place] [address] Phys: Maximo Roblero MD Acct: [id number] Dis Date: Status: REG ER PHONE #: [phone] Exam Date: 03/04/2019 1711 FAX #: [phone] Reason: pelvic pain, diarrhea EXAMS: CPT CODE: [id number] CT ABD PELVIS W/O CONT 59728 < Continued> There is symmetric moderately severe bilateral renal atrophy. There is a 1 cm simple fluid density benign superior pole right renal cyst. No specific additional follow-up recommended. There is no acute renal process. The urinary bladder reveals no acute process. There is no acute reproductive structure abnormality. There are benign vascular calcifications in the pelvis. There is no intra-abdominal free gas. There is no intra-abdominal free fluid. There is no lymphadenopathy. There is an incidental 2nd duodenal segment diverticulum. There is no bowel perforation or bowel obstruction. There is acute colitis from the cecum to the hepatic flexure and from the splenic flexure to the rectum. There is wall thickening of the proximal appendix measuring 11 mm diameter, which normalizes in the appendiceal body and tail as the appendix is further away from the cecum that is acutely inflamed. There is no evidence of acute primary appendicitis. IMPRESSION: 1. There is acute colitis from the cecum to the hepatic flexure and from the splenic flexure to the rectum. 2. There is reactive wall thickening of the proximal appendix measuring 11 mm diameter, which normalizes in the appendiceal body and tail as the appendix traverses further away from the acutely inflamed cecum. This is consistent with secondary appendiceal edema due to the primary cecal inflammatory process. There is no evidence of acute primary appendicitis. 3. There is no bowel obstruction or perforation. 4. There are noncalcified pulmonary nodules, the largest measures 5 mm in the right lower lobe. If there are no risk factors for development of pulmonary malignancy, no follow-up would be recommended. If there are risk factors for develo pment of malignancy, consider a 12 month follow-up CT of the chest to ev aluate long-term stability. (Leonardo et al., Fleischner Society, 2 017). 5. There is a severe burden of atherosclerotic calcification of t he coronary arteries. 6. There are additional nonacute findings that are described above. PAGE 2 Signed Report (CONTINUED) Name: IQRA MATTHEW [facility] : 1950 Age/S: 68 / F [address] [facility] Unit #: [id number] Loc: [place] [address] Phys: Maximo Roblero MD Acct: [id number] Dis Date: Status: REG ER PHONE #: [phone] Exam Date: 03/04/2019 1711 FAX #: [phone] Reason: pelvic pain, diarrhea EXAMS: CPT CODE: [id number] CT ABD PELVIS W/O CONT 26913 < Continued> at 1735 Reported and signed by: Jaime Chua D.O. CC: Maximo Roblero MD Technologist:RT Porsha(R) CTDI: DLP: [id number] Date/Time: 03/04/2019 (1735) [id number] Orig Print D/T: S: 03/04/2019 (1730) PAGE 3 Signed Report C REACTIVE [id number] 17:15:00* Test Item Value Reference Range Comments C REACTIVE PROTEIN (test code=CRP) 217.0 MG/L 0.0-2.9 CBC W/AUTO [id number] 17:11:00* Test Item Value Reference Range Comments WHITE BLOOD CELL (test code=WBC) 14.64 x10 3/uL 4.5-11.0 RED BLOOD CELL (test code=RBC) 3.34 x10 6/uL 3.54-5.02 HEMOGLOBIN (test code=HGB) 9.6 g/dL 11.0-15.0 HEMATOCRIT (test code=HCT) 31.3 % 33.0-45.0 MEAN CELL VOLUME (test code=MCV) 93.7 fL 81.0-99.0 MEAN CELL HGB (test code=MCH) 28.7 pg 27.0-33.0 MEAN CELL HGB CONCETRATION (test code=MCHC) 30.7 g/dL 33.0-37.0 RED CELL DISTRIBUTION WIDTH CV (test code=RDW) 17.4 % 11.5-14.5 RED CELL DISTRIBUTION WIDTH SD (test code=RDW-SD) 60.2 fL 37.0-54.0 PLATELET COUNT (test code=PLT) 197 x10 3/uL 150-400 MEAN PLATELET VOLUME (test code=MPV) 11.0 fL 7.0-9.0 NEUTROPHIL % (test code=NT%) 92.4 % 56.0-77.0 IMMATURE GRANULOCYTE % (test code=IG%) 0.6 % 0.0-2.0 LYMPHOCYTE % (test code=LY%) 4.0 % 14.0-32.0 MONOCYTE % (test code=MO%) 2.9 % 4.8-9.0 EOSINOPHIL % (test code=EO%) 0.0 % 0.3-3.7 BASOPHIL % (test code=BA%) 0.1 % 0.0-2.0 NUCLEATED RBC % (test code=NRBC%) 0.0 % 0-0 NEUTROPHIL # (test code=NT#) 13.52 x10 3/uL 2.0-7.6 IMMATURE GRANULOCYTE # (test code=IG#) 0.09 x10 3/uL 0.00-0.03 LYMPHOCYTE # (test code=LY#) 0.59 x10 3/uL 1.0-3.8 MONOCYTE # (test code=MO#) 0.42 x10 3/uL 0.1-0.8 EOSINOPHIL # (test code=EO#) 0.00 x10 3/uL 0.0-0.2 BASOPHIL # (test code=BA#) 0.02 x10 3/uL 0.0-0.2 NUCLEATED RBC # (test code=NRBC#) 0.00 x10 3/uL 0.0-0.1 MANUAL DIFF REQUIRED (test code=MDIFF) NO SLIDE REVIEWED, CONSISTENT WITH AUTO DIFF. COMPREHENSIVE METABOLIC [id number] 17:09:00* Test Item Value Reference Range Comments SODIUM (test code=NA) 131 mEq/L 134-147 POTASSIUM (test code=K) 4.5 mEq/L 3.4-5.0 CHLORIDE (test code=CL) 104 mEq/L 100-108 CARBON DIOXIDE (test code=CO2) 22 mEq/L 21-33 ANION GAP (test code=GAP) 10 0-20 GLUCOSE (test code=GLU) 200 mg/dL 70-110 BLOOD UREA NITROGEN (test code=BUN) 49 mg/dL 7-18 GLOMERULAR FILTRATION RATE (test code=GFR) 26.3 80-90 Units of measure=ml/min/1.73 m2 CREATININE (test code=CREAT) 1.9 mg/dL 0.6-1.3 TOTAL PROTEIN (test code=PROT) 6.6 g/dL 6.4-8.2 ALBUMIN (test code=ALB) 2.40 g/dL 3.4-5.0 CALCIUM (test code=CA) 7.9 mg/dL 8.0-10.5 BILIRUBIN TOTAL (test code=BILT) 0.5 MG/DL <1.5 SGOT/AST (test code=AST) 5 IUnit/L 15-37 SGPT/ALT (test code=ALT) 6 IUnit/L 15-65 ALKALINE PHOSPHATASE TOTAL (test code=ALKP) 119 IUnit/L 20-125 CBC W/AUTO [id number] 16:55:00* Test Item Value Reference Range Comments WHITE BLOOD CELL (test code=WBC) 14.64 x10 3/uL 4.5-11.0 RED BLOOD CELL (test code=RBC) 3.34 x10 6/uL 3.54-5.02 HEMOGLOBIN (test code=HGB) 9.6 g/dL 11.0-15.0 HEMATOCRIT (test code=HCT) 31.3 % 33.0-45.0 MEAN CELL VOLUME (test code=MCV) 93.7 fL 81.0-99.0 MEAN CELL HGB (test code=MCH) 28.7 pg 27.0-33.0 MEAN CELL HGB CONCETRATION (test code=MCHC) 30.7 g/dL 33.0-37.0 RED CELL DISTRIBUTION WIDTH CV (test code=RDW) 17.4 % 11.5-14.5 RED CELL DISTRIBUTION WIDTH SD (test code=RDW-SD) 60.2 fL 37.0-54.0 PLATELET COUNT (test code=PLT) 197 x10 3/uL 150-400 MEAN PLATELET VOLUME (test code=MPV) 11.0 fL 7.0-9.0 NEUTROPHIL % (test code=NT%) % 56.0-77.0 LYMPHOCYTE % (test code=LY%) % 14.0-32.0 NEUTROPHIL # (test code=NT#) x10 3/uL 2.0-7.6 LYMPHOCYTE # (test code=LY#) x10 3/uL 1.0-3.8 MANUAL DIFF REQUIRED (test code=MDIFF)
--- OUTSIDE RECORDS SUMMARY | 2019-06-26 18:25 | XMS REPORT | Summary of Care ---
Author Author RYAN COBB M.D. Unknown Address Unknown Phone Unavailable Care Team Providers Care Corset Maker Name Role Phone RYAN COBB M.D. Unavailable Unavailable ARTEMIO LANE MD Unavailable Unavailable МАРИНА SHAW MD, ORIN Ramos Unavailable Unavailable KAYLEY SHAW, ANIKA Unavailable Unavailable Sanna SHAW, Wild Unavailable Unavailable Unavailable Unavailable Functional Status Name Dates Details Functional status health issues are not documented Status: Name Dates Details Cognitive status health issues are not documented Status: Problems Name Dates Details Open knee wound (891.0, S81.009A) Status: Active Open wound of left knee, initial encounter (891.0, S81.002A) Status: Active Arthritis of left knee (716.96, M17.12) Status: Active Medications Name Dates Details predniSONE 5 MG Oral Tablet Active Amoxicillin 875 MG Oral Tablet * Refills: 0 Active Mycophenolate Mofetil 250 MG Oral Capsule * Refills: 0 Active Tacrolimus 1 MG Oral Capsule * Refills: 0 Active HYDROcodone-Acetaminophen 5-300 MG Oral Tablet * Refills: 0 Active Allergies and Adverse Reactions Name Dates Details Aspirin Free Analgesic TABS (Allergy) Status: Active Cefdinir CAPS (Allergy) Status: Active Doxycycline Hyclate CAPS (Allergy) Status: Active Levaquin TABS (Allergy) Status: Active Septra TABS (Allergy) Status: Active Past Medical History Name Dates Details History of diabetes mellitus (V12.29, Z86.39) Status: Resolved History of kidney disease (V13.09, Z87.448) Status: Resolved Procedures Procedure Dates Details [B] ALBUMIN SERUM Date: 07-Jan-2019 History of section Completed History of Kidney transplantation Completed Immunization Name Dates Details Immunizations not documented Family History Name Dates Details No pertinent family history (V49.89, Z78.9) Status: Active Social History Name Dates Details - Status: Name Dates Details Never smoker Vital Signs Date Test Result Details [id number] Height 65 in Status: Weight 145 lb Status: Body Mass Index Calculated 24.13 kg/m2 Status: Body Surface Area Calculated 1.73 m2 Status: Results Date Description Value Details :02 [U] XRAY KNEE 3 VWS LEFT [id number] XR KNEE 3 VWS LEFT Images acquired, not reported on this accession number. :06 [[facility]] CBC (INCLUDES DIFF/PLT) WBC 8.1 {K/CMM} Range: 3.7-10.4 RBC 3.42 {M/CMM} (Below low threshold) Range: 4.20-5.40 Hgb 9.6 g/dl (Below low threshold) Range: 12.0-16.0 Hct 30.3 % (Below low threshold) Range: 36.0-48.0 MCV 88.4 fL Range: 80.0-98.0 MCH 28.0 pg Range: 27.0-31.0 MCHC 31.6 g/dl (Below low threshold) Range: 32.0-36.0 RDW 17.7 % (Above high threshold) Range: 11.5-14.5 Platelet 273 {K/CMM} Range: 133-450 Mean Platelet Volume 8.9 fL Range: 7.4-10.4 [QL] SED RATE BY MODIFIED WESTERGREN Sedimentation Rate 64 {mm/hr} (Above high threshold) Range: 0-20 [[facility]] HEMOGLOBIN A1c Hemoglobin A1c 6.1 % (Above high threshold) Range: <=5.6 [[facility]] Differential Segmented Neutrophils 71.2 % Range: 45.0-75.0 Monocytes 3.9 % Range: 2.0-12.0 Lymphocytes 22.8 % Range: 20.0-40.0 Eosinophils 2.1 % Range: 0.0-4.0 Basophils 0.0 % Range: 0.0-1.0 Segs-Bands # 5.8 {K/CMM} Range: 1.5-8.1 Lymphocytes # 1.9 {K/CMM} Range: 1.0-5.5 Monocytes # 0.3 {K/CMM} Range: 0.0-0.8 Eosinophils # 0.2 {K/CMM} Range: 0.0-0.5 Basophils # 0.0 {K/CMM} Range: 0.0-0.2 RBC Morphology Normal Range: Normal Plt Morphology Normal Range: Normal [[facility]] ALBUMIN Albumin Lvl 2.8 g/dl (Below low threshold) Range: 3.5-5.0 [[facility]] C-REACTIVE PROTEIN CRP 63.8 mg/L (Above high threshold) Range: <=2.9 Plan of Care Name Dates Details Planned Observations Planned Goals not documented Interventions Provided Labs/Procedures/Imaging* [B] ALBUMIN SERUM; To Be Done: 07 Jan 2019 * Tobacco Use Screening; Done: 07 Jan 2019 * Tobacco Use Screening; Done: 07 Jan 2019 Plan* Completed at Today's Appointment: * Dressing Changes * Procedure: located on the left side of the knee . * Dry sterile dressing was applied. There was no bleeding. is unchanged, is poorly healing * Post-Procedure: the patient tolerated the procedure well. There were no complications. * Follow-Up and Referrals: referred to a wound clinic. * We had a lengthy discussion today with Ms. Orellana regarding her left knee. 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 This has led to joint destruction and pseudolaxity within the knee as well. 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 We discussed multiple options today for treatment. Her main concern and reason for coming today was to be evaluated for hardware removal, although xrays today demonstrate that she no longer has any hardware in place. Given that we discussed continued nonoperative management in the form of wound care and continued daily dressing changes as prescribed by the demolition specialist. If they would like to continue with a surgical option we discussed a staged procedure. We would start with an I&D and placement of a static antibiotic spacer for treatment of her chronic knee infections/colonization. She would also need coverage of the wound since she does not appear to have enough tissue for primary closure, if she chooses to proceed with surgery we would need to have her evaluated by a plastic surgeon for coverage. She would also likely need custodial IV antibiotic coverage for a period of time via PICC line. If we were able to eradicate the infection based on labs and culture analysis and her wound healed fully we would then proceed to the seco nd stage of the surgery which would be implantation of a TKA with extensor mechanism reconstruction. I informed her and her that there is significant risk involved with a surgical plan given her history of kidney transplantation, immunosuppressive medications, and diabetes history, specifically that we would be unable to close the wound. Finally we also discussed the possibility of above knee amputation, given the chronicity of the wound/infection and poor prognosis for healing in the future, amputation is a viable option. Today we will order labs to assess her baseline infection status with CBC, ESR, and CRP. Additionally we will assess her nutritional status with albumin, prealbumin, and a check of Hemoglobin A1C. Additionally for her severe knee instability we will give her a prescription for a hinged knee brace. Instructions Name Dates Details Instructions not documented Encounters Appointment; ORIN PARISH M.D. Encounter Diagnosis: Problem not documented On: 10-Oct-2018 11:30 Appointment; ORIN PARISH M.D. Encounter Diagnosis: Problem not documented On: 10-Oct-2018 12:30 Appointment; WILD BERNARD Encounter Diagnosis: Problem not documented On: 29-Oct-2018 13:45 Appointment; RYAN COBB M.D. Encounter Diagnosis: Problem not documented On: 07-Jan-2019 11:00
[2019-06-26] MEDS ORDERED: CIPROFLOXACIN 400 MG/D5W 200ML 200 ML IV STA (22:04)
[2019-06-26] MEDS ORDERED: METRONIDAZOLE 500MG/NS 100ML 100 ML IV STA (22:04)
[2019-06-26] MEDS ORDERED: SODIUM CHLORIDE 0.9% 1000ML 1,000 ML IV STA (22:04)
[2019-06-26 22:11] LABS: BASOPHILS % 0.4 % (0.0-1.0); EOSINOPHILS # (AUTO) 0.2 (0.0-0.4); HEMOGLOBIN 10.2 g/dL (12.0-16.0); LYMPHOCYTES # (AUTO) 2.3 (1.0-3.2); LYMPHOCYTES % 24.8 % (18.0-39.1); MEAN CORPUSCULAR HEMOGLOBIN 28.3 pg (28-32); MEAN CORPUSCULAR VOLUME 94.4 fL (81-99); MONOCYTES # (AUTO) 0.5 (0.2-0.8); MONOCYTES % 5.3 % (4.4-11.3); NEUTROPHILS # (AUTO) 6.1 (2.1-6.9); NEUTROPHILS % 67.2 % (38.7-80.0); PLATELET COUNT 375 x10e3/uL (140-360); RED CELL DISTRIBUTION WIDTH 15.4 % (11.7-14.4)
[2019-06-26 22:24] LABS: ALANINE AMINOTRANSFERASE < 6 IU/L (0-55); ALBUMIN 2.1 g/dL (3.5-5.0); ALBUMIN/GLOBULIN RATIO 0.6 (0.8-2.0); ALKALINE PHOSPHATASE 101 IU/L (40-150); BLOOD UREA NITROGEN 24 mg/dL (7-26); BUN/CREATININE RATIO 17 (6-25); CARBON DIOXIDE 22 mmol/L (22-29); CHLORIDE 110 mmol/L (98-107); CREATINE KINASE 11 IU/L (29-168); CREATININE, SERUM 1.43 mg/dL (0.57-1.11); EST GLOMERULAR FILTRATION RATE 36 ML/MIN (60-); GLUCOSE 126 mg/dL (74-118); SODIUM 137 mmol/L (136-145)
--- NOTE | 2019-06-27 00:57 | Diagnostic Imaging Report ---
EXAMINATION: CT of the abdomen and pelvis with contrast. TECHNIQUE: Spiral CT images of the abdomen and pelvis were performed from the lung bases to the lesser trochanters after the intravenous administration of 100 cc of Isovue 370. Coronal and sagittal reformatted images were obtained. COMPARISON: None. CLINICAL HISTORY:Abdominal pain. History of renal transplant. DISCUSSION: ABDOMEN/PELVIS: LOWER THORAX:3 mm solid nodule in the lateral segment of the right lower lobe (series 2 image 4). Lung bases are otherwise unremarkable. HEPATOBILIARY: No focal hepatic lesions. No intra-or extrahepatic biliary ductal dilation. Gallbladder has been removed. SPLEEN: No splenomegaly or focal splenic lesion. PANCREAS: No focal masses or ductal dilatation. ADRENALS: No adrenal nodules. KIDNEYS/URETERS: Atrophic burns pa[place] kidneys. Small cyst of the burns pa[place] right kidney. Left lower quadrant transplant kidney with lobulated contour which may be congenital or postinflammatory. Wedge-shaped focus of hypoattenuation in the upper pole represent a remote infarct. End to side arterial anastomosis with the external iliac artery. End to side venous anastomosis with the left external iliac vein. PELVIC ORGANS/BLADDER: Transplant ureteral anastomosis along the left lateral surface of the bladder which is otherwise unremarkable. Atrophic uterus appropriate for age. No adnexal mass. PERITONEUM/RETROPERITONEUM: No ascites or pneumoperitoneum. LYMPH NODES: No pelvic sidewall, retroperitoneal, or mesenteric lymphadenopathy. VESSELS: Extensive atherosclerotic calcification of the abdominal aorta, major branch vessels, and iliac arterial systems without aneurysmal dilatation. GI TRACT: There is diffuse concentric wall thickening and mucosal enhancement of the colon, with the most significant changes in the rectum and a sending colon. Normal appendix. Small sliding hiatal hernia. No small bowel dilatation to suggest obstruction. BONES AND SOFT TISSUE: Osteopenia without acute osseous abnormality. Multilevel degenerative disc changes and facet arthropathy of the lumbar spine. Diffuse muscular atrophy. IMPRESSION: Findings compatible with infectious or inflammatory pancolitis, without domenica perforation or drainable fluid collection. Atrophic burns paiute kidneys with left lower quadrant transplant kidney as detailed above. Atherosclerotic vascular disease. 3 mm nodule in the lateral segment of the right lower lobe may be assessed for stability by CT scan of the chest without contrast in one year. Signed by: Dr. Gael Handy M.D. on 06/27/2019 12:55 AM
[2019-06-27] MEDS ORDERED: SODIUM CHLORIDE 0.9% 50ML 50 ML ONE (01:00)
[2019-06-27] MEDS ORDERED: IOPAMIDOL 370 MG/ML 200 ML INFUS..BTL INJ ONE (01:00)
[2019-06-27 06:31] VITALS: BP 107/84
== END 2019-06-27 02:35 | disposition home or self-care (01) ==
LOC: ER 18:21
DX: R19.7 Diarrhea, unspecified (principal); R10.9 Unspecified abdominal pain; H54.8 Legal blindness, as defined in USA; Z94.0 Kidney transplant status; Z99.2 Dependence on renal dialysis
CPT/HCPCS: 36415; 74177; 80053; 82550; 82553; 83690; 84484; 85025; 99284; J7030; Q9967

== ENCOUNTER 2019-06-30 15:00 | Inpatient (IN) | payer MEDICARE, OTHER ==
[~2019-06-30] VITALS: Ht 162.6 cm; Wt 67.2 kg
[2019-06-30] MEDS ORDERED: SODIUM CHLORIDE 0.9% 1000ML 1,000 ML IV STA (15:42)
--- NOTE | 2019-06-30 16:37 | Diagnostic Imaging Report ---
CT of the abdomen and pelvis History: Diarrhea Comparison: 06/19/2019 Technique: Multidetector CT scanning of the abdomen and pelvis was performed from the level of the lung bases to the inferior pubic ramus without contrast. DOSE REDUCTION: The examination was performed according to departmental dose-optimization program which includes automated exposure control, adjustment of the mA and/or kV according to patient size and/or use of iterative reconstruction technique. Discussion: There is minimal dependent atelectasis. Lack of IV contrast limits evaluation of solid and hollow visceral organs. No focal hepatic lesions are identified. The gallbladder is surgically absent. There is no intrahepatic or extrahepatic biliary dilatation. The spleen is within normal limits of size. The bilateral adrenal glands are unremarkable. There is fatty atrophy of the pancreas. No pancreatic ductal dilatation or peripancreatic inflammatory stranding. The [place] kidneys are atrophic. There is a small right renal cyst which measures 11 mm in diameter. A trace right kidney is identified in the left iliac fossa. There is no hydroureteronephrosis or renal calculi identified. The stomach, small, and large bowel are nondistended. There is no evidence of obstruction. There is diffuse wall thickening of the entire colon which is similar to examination performed 06/27/2019. There are no signs of appendicitis.. There is no free intraperitoneal air or ascites. No abnormal abdominal fluid collections are identified. The abdominal aorta is of normal course and caliber and demonstrates extensive atherosclerotic calcifications. The urinary bladder is within normal limits. There are no acute osseous abnormalities. Multilevel degenerative changes of the thoracolumbar spine are present. IMPRESSION: Grossly unchanged diffuse concentric wall thickening of the colon compatible with infectious or inflammatory pancolitis. No evidence of perforation. Signed by: Daniel Dixon MD on 06/30/2019 4:34 PM
[2019-06-30 17:46] LABS: BASOPHILS % 0.4 % (0.0-1.0); EOSINOPHILS # (AUTO) 0.2 (0.0-0.4); EOSINOPHILS % 1.8 % (0.0-6.0); HEMATOCRIT 34.4 % (34.2-44.1); LYMPHOCYTES # (AUTO) 2.2 (1.0-3.2); LYMPHOCYTES % 19.3 % (18.0-39.1); MEAN CORPUSCULAR HEMOGLOBIN 27.8 pg (28-32); MEAN CORPUSCULAR HGB CONC 29.1 g/dL (31-35); MEAN CORPUSCULAR VOLUME 95.6 fL (81-99); MONOCYTES # (AUTO) 0.5 (0.2-0.8); MONOCYTES % 4.7 % (4.4-11.3); NEUTROPHILS # (AUTO) 8.4 (2.1-6.9); NEUTROPHILS % 73.4 % (38.7-80.0); PLATELET COUNT 367 x10e3/uL (140-360); RED CELL DISTRIBUTION WIDTH 15.8 % (11.7-14.4)
[2019-06-30 18:06] LABS: ALBUMIN 2.1 g/dL (3.5-5.0); ALBUMIN/GLOBULIN RATIO 0.5 (0.8-2.0); ALKALINE PHOSPHATASE 109 IU/L (40-150); ANION GAP 9.1 mmol/L (8-16); BLOOD UREA NITROGEN 18 mg/dL (7-26); BUN/CREATININE RATIO 13 (6-25); CALCIUM 8.3 mg/dL (8.4-10.2); CARBON DIOXIDE 22 mmol/L (22-29); CHLORIDE 113 mmol/L (98-107); CREATININE, SERUM 1.44 mg/dL (0.57-1.11); EST GLOMERULAR FILTRATION RATE 36 ML/MIN (60-); GLUCOSE 106 mg/dL (74-118); POTASSIUM 4.1 mmol/L (3.5-5.1); SODIUM 140 mmol/L (136-145)
[2019-06-30 18:09] LABS: ALANINE AMINOTRANSFERASE < 6 IU/L (0-55)
[2019-06-30] MEDS ORDERED: MORPHINE SULFATE INJ 4 MG/ML INJ 1ML IV PRN (18:45)
[2019-06-30] MEDS ORDERED: METRONIDAZOLE 500MG/NS 100ML 100 ML IV SCH (20:00)
[2019-06-30] MEDS: ONDANSETRON HCL INJ 2MG/ML 2ML 2 MG/ML VIAL IV PRN (22:20)
[2019-06-30] MEDS: SODIUM CHLORIDE 0.9% 1000ML 1,000 ML IV SCH (22:20)
[2019-06-30] MEDS ORDERED: NORCO 10-325 T1 EACH PO (22:31)
[2019-06-30] MEDS ORDERED: VITAMIN D32000 UNI2 PO (22:31)
[2019-06-30] MEDS ORDERED: TACROLIMUS1 MG PO ×2 (22:31)
[2019-06-30] MEDS ORDERED: MYCOPHENOLATE250 MG PO (22:31)
[2019-06-30] MEDS ORDERED: PREDNISONE5 MG PO (22:31)
[2019-07-01] VITALS (8 sets, daily range): BP systolic 88–171; BP diastolic 52–156
--- NOTE | 2019-07-01 | NUR ---
Patient arrived to the unit as a new admit with diagnosis of Pancolitis. Pt alert and oriented x3. Pt weak especially on both legs. Left knee with dressing (C/D/I). Pt is legally blind. at bedside. Pt diapered due to frequent diarrheal episodes. Call amezcua within reach. Bed alarm active.
[2019-07-01] MEDS: METRONIDAZOLE 500MG/NS 100ML 100 ML IV SCH ×4 (05:27→23:10)
[2019-07-01] MEDS: SODIUM CHLORIDE 0.9% 1000ML 1,000 ML IV SCH ×2 (05:27→23:10)
[2019-07-01 07:45] LABS: BASOPHILS # (AUTO) 0.1 (0.0-0.1); BASOPHILS % 0.6 % (0.0-1.0); EOSINOPHILS # (AUTO) 0.3 (0.0-0.4); EOSINOPHILS % 3.5 % (0.0-6.0); HEMATOCRIT 26.4 % (34.2-44.1); HEMOGLOBIN 7.8 g/dL (12.0-16.0); LYMPHOCYTES # (AUTO) 2.6 (1.0-3.2); LYMPHOCYTES % 26.6 % (18.0-39.1); MEAN CORPUSCULAR HEMOGLOBIN 28.1 pg (28-32); MEAN CORPUSCULAR HGB CONC 29.5 g/dL (31-35); MONOCYTES # (AUTO) 0.8 (0.2-0.8); MONOCYTES % 8.1 % (4.4-11.3); NEUTROPHILS % 60.8 % (38.7-80.0); PLATELET COUNT 258 x10e3/uL (140-360); RED BLOOD COUNT 2.78 x10e6/uL (3.6-5.1); RED CELL DISTRIBUTION WIDTH 15.9 % (11.7-14.4)
[2019-07-01 08:09] LABS: ALBUMIN 1.6 g/dL (3.5-5.0); ALBUMIN/GLOBULIN RATIO 0.6 (0.8-2.0); ALKALINE PHOSPHATASE 81 IU/L (40-150); ANION GAP 8.2 mmol/L (8-16); BLOOD UREA NITROGEN 16 mg/dL (7-26); BUN/CREATININE RATIO 15 (6-25); CALCIUM 7.1 mg/dL (8.4-10.2); CARBON DIOXIDE 19 mmol/L (22-29); CHLORIDE 116 mmol/L (98-107); CREATININE, SERUM 1.07 mg/dL (0.57-1.11); EST GLOMERULAR FILTRATION RATE 51 ML/MIN (60-); GLUCOSE 80 mg/dL (74-118); POTASSIUM 4.2 mmol/L (3.5-5.1); SODIUM 139 mmol/L (136-145)
[2019-07-01 08:26] LABS: ALANINE AMINOTRANSFERASE < 6 IU/L (0-55)
[2019-07-01] MEDS ORDERED: HYDROCODONE/APAP 10MG-325MG TAB PO PRN (10:45)
[2019-07-01] MEDS: PIPERACILLIN/TAZO 2.25 GM 50 ML IV SCH ×2 (14:13→20:00)
[2019-07-01] MEDS: TACROLIMUS 1 MG CAP PO SCH (17:13)
[2019-07-01] MEDS: MYCOPHENOLATE MOFETIL 250 MG CAP PO SCH (17:13)
--- NOTE | 2019-07-01 19:20 | NUR ---
Patient visited in room during nursing rounds. Patient alert and oriented x3. Pt legally blind and is on bedrest at this time. at bedside. Pt being straight cathed periodically by . On IVF and scheduled IV antibiotics. Pt diapered and last bowel movement move "mucosy" in nature. Call amezcua within reach. Will monitor closely.
--- NOTE | 2019-07-01 22:15 | NUR ---
Spoke with Dr. Roberto Duenas over phone and MD aware of pt condition. MD ordered to start pt drink Golytely starting tomorrow (07/02/19) at 0500 and will be strictly NPO at 0900. stated he will round tonight to talk to patient.
[2019-07-02] VITALS (8 sets, daily range): BP systolic 131–173; BP diastolic 59–74
--- NOTE | 2019-07-02 00:24 | Consultation ---
DATE OF CONSULTATION: 07/01/2019 Renal Consultation REASON FOR CONSULTATION: Kidney transplant. HISTORY OF PRESENT ILLNESS: A 68-year-old female with history of living related kidney transplant was brought to [facility] for diarrhea and wound to the left lower extremity. The patient received living-related kidney transplant from her in 2002 and has been doing well until recently when she developed chronic diarrhea. Despite adjustments in her immunosuppression, she continued to have diarrhea. She [facility] Infectious Disease [facility], had a fecal transplant, which temporarily improved her diarrhea; however, it returned. The patient was admitted and Nephrology consultation was called. REVIEW OF SYSTEMS: A 12-point review of systems completed. All systems negative other than in the HPI above. PAST MEDICAL HISTORY: 1. Living-related kidney transplant in 2002 from . 2. Diabetes. 3. Blindness. PAST SURGICAL HISTORY: 1. Kidney transplant in 2002. 2. . SOCIAL HISTORY: No tobacco. No alcohol. No IV drugs. FAMILY HISTORY: Father with chronic kidney disease. ALLERGIES: LEVAQUIN, BACTRIM, ASPIRIN. CURRENT MEDICATIONS: See list. PHYSICAL EXAMINATION: VITAL SIGNS: Blood pressure 94/61 to 171/74, pulse 60-77, respiratory rate 16 to 17, temperature 96.7. GENERAL: No apparent distress. HEENT: Oropharynx clear. No scleral icterus. No peripheral edema. NECK: Supple. No elevation in jugular venous pressure. No lymphadenopathy. CHEST: Clear to auscultation anteriorly bilaterally. CARDIOVASCULAR: Regular rhythm. No murmurs, rubs, or gallops. ABDOMEN: Soft. Positive bowel sounds. No tenderness. No rebound. EXTREMITIES: No edema. No clubbing. No cyanosis. Dressing over left leg wound. SKIN: Warm. LABORATORY DATA: Sodium 139, potassium 4.2, chloride 116, CO2 of 19, BUN 16, creatinine 1.07, glucose 80, calcium 7.1, albumin 1.6. White count 9.4, hemoglobin 7.8, hematocrit 26.4, platelets 258. CT abdomen and pelvis grossly unchanged diffuse concentric wall thickening of the colon compatible with infectious or inflammatory pancolitis. No evidence of perforation. ASSESSMENT AND PLAN: 1. Stage 3 chronic kidney disease. The patient appears to be at baseline. Continue current immunosuppression. 2. Metabolic acidosis, suspected diarrhea. We will place patient on bicarbonate. 3. Pancolitis. The patient to be seen by GI. Colonoscopy planned. 4. Immunosuppression. No change. 5. Anemia. We will check iron stores. MD JEROMY Dominguez/MICHAEL /[id number]
--- NOTE | 2019-07-02 01:15 | NUR ---
Dr. Roberto Duenas came and visited pt in room. MD spoke with patient and at bedside. MD interviewed patient and and obtained medical history. MD informed pt plan to do Colonoscopy later today and pt will have bowel prep starting at 0500 this morning then NPO at 0900.
[2019-07-02 02:14] LABS: CLARITY,URINE CLOUDY (CLEAR); COLOR,URINE YELLOW (YELLOW); KETONES,URINE NEGATIVE (NEGATIVE); LEUKOCYTE ESTERASE ,URINE 2+ (NEGATIVE); NITRITE,URINE POSITIVE (NEGATIVE); PROTEIN,URINE DIPSTICK TRACE (NEGATIVE); URINE UROBILINOGEN 0.2 mg/dL (0.2 - 1)
[2019-07-02 02:15] LABS: BILIRUBIN,URINE NEGATIVE (NEGATIVE)
[2019-07-02 02:22] LABS: BACTERIA,URINE MANY /HPF; EPITHELIAL CELLS,URINE FEW /LPF; WBC,URINE (MAN) >50 /HPF (0-5)
[2019-07-02 03:11] LABS: CREATININE,URINE RANDOM 39.91 mg/dL (47-110)
[2019-07-02] MEDS: PIPERACILLIN/TAZO 2.25 GM 50 ML IV SCH ×3 (04:00→20:40)
[2019-07-02] MEDS: METRONIDAZOLE 500MG/NS 100ML 100 ML IV SCH ×4 (05:00→23:08)
[2019-07-02] MEDS ORDERED: PEG (High)/E-LYTE SOLN 4,000 ML BTL PO ONE (05:00)
--- NOTE | 2019-07-02 05:00 | NUR ---
Pt started to drink Golytely solution in a cup. Pt and educated that patient is expected to have multiple bowel movements.
[2019-07-02 06:17] LABS: BASOPHILS % 0.2 % (0.0-1.0); EOSINOPHILS # (AUTO) 0.2 (0.0-0.4); EOSINOPHILS % 1.6 % (0.0-6.0); HEMATOCRIT 27.9 % (34.2-44.1); HEMOGLOBIN 8.1 g/dL (12.0-16.0); LYMPHOCYTES # (AUTO) 1.9 (1.0-3.2); LYMPHOCYTES % 19.2 % (18.0-39.1); MEAN CORPUSCULAR HEMOGLOBIN 27.7 pg (28-32); MEAN CORPUSCULAR VOLUME 95.5 fL (81-99); MONOCYTES # (AUTO) 0.5 (0.2-0.8); MONOCYTES % 4.7 % (4.4-11.3); NEUTROPHILS # (AUTO) 7.3 (2.1-6.9); NEUTROPHILS % 73.8 % (38.7-80.0); PLATELET COUNT 283 x10e3/uL (140-360); RED BLOOD COUNT 2.92 x10e6/uL (3.6-5.1); RED CELL DISTRIBUTION WIDTH 15.9 % (11.7-14.4)
[2019-07-02 06:41] LABS: ANION GAP 8.1 mmol/L (8-16); BLOOD UREA NITROGEN 12 mg/dL (7-26); BUN/CREATININE RATIO 14 (6-25); CALCIUM 7.1 mg/dL (8.4-10.2); CARBON DIOXIDE 16 mmol/L (22-29); CHLORIDE 118 mmol/L (98-107); CREATININE, SERUM 0.88 mg/dL (0.57-1.11); EST GLOMERULAR FILTRATION RATE > 60 ML/MIN (60-); GLUCOSE 69 mg/dL (74-118); IRON 31 ug/dL (50-170); POTASSIUM 4.1 mmol/L (3.5-5.1); SODIUM 138 mmol/L (136-145); TRANSFERRIN < 70 mg/dL (180-382)
[2019-07-02 06:54] LABS: FERRITIN 256.41 ng/mL (4.63-204.00)
[2019-07-02] MEDS: CHOLECALCIFEROL 1,000 UNIT TAB PO SCH (09:00)
[2019-07-02] MEDS: MYCOPHENOLATE MOFETIL 250 MG CAP PO SCH ×2 (09:00→17:51)
[2019-07-02] MEDS: TACROLIMUS 1 MG CAP PO SCH ×2 (09:00→17:51)
[2019-07-02] MEDS: PREDNISONE 5 MG TAB PO SCH (09:00)
[2019-07-02] MEDS ORDERED: METOPROLOL TARTRATE INJ 1 MG/ML VIAL IV ONE (12:45)
[2019-07-02] MEDS ORDERED: PROPOFOL IV EMULSION 10 MG/ML 50 ML VIAL ONE (13:46)
[2019-07-02] MEDS ORDERED: METOCLOPRAMIDE HCL 10 MG/2ML VIAL ONE (15:27)
[2019-07-02] MEDS ORDERED: ONDANSETRON HCL INJ 2MG/ML 2ML 2 MG/ML VIAL ONE (15:27)
[2019-07-02] MEDS ORDERED: MIDAZOLAM HCL 2 MG/2 ML VIAL ONE (15:41)
--- NOTE | 2019-07-02 16:00 | NUR ---
Notified Dr. Duenas of positive cdiff results and received orders to start vanc 250mg po q6h
[2019-07-02] MEDS: FAMOTIDINE 20 MG/2 ML VIAL IV SCH (16:57)
[2019-07-02] MEDS: IRON SUCROSE 100 MG in SODIUM CHLORIDE 0.9% 100 ML 100 ML IV SCH (17:44)
[2019-07-02] MEDS ORDERED: VANCOMYCIN 250MG/5ML ORAL SOLN PO SCH (18:00)
[2019-07-02] MEDS: VANCOMYCIN 250MG/5ML ORAL SOLN PO SCH ×2 (19:07→23:59)
--- NOTE | 2019-07-02 19:20 | NUR ---
Patient visited in room during nursing rounds. Patient alert and oriented x3. Pt legally blind and is on bedrest at this time. at bedside. Pt being straight cathed periodically by . On IVF and scheduled IV and PO antibiotics. Pt diapered. Pt on contact isolation for C. diff. Call amezcua within reach. Bed alarm active. Will monitor pt closely.
--- NOTE | 2019-07-02 19:24 | Operative Report ---
DATE OF PROCEDURE: 07/02/2019 SURGEON: Roberto Duenas MD PROCEDURES: EGD with biopsies and colonoscopy with biopsies. INDICATIONS FOR EGD: Early satiety, decreased p.o. intake. INDICATIONS FOR COLONOSCOPY: Chronic recurrent diarrhea, history of C. difficile colitis. MEDICATIONS: The patient was done under MAC, please see anesthesiologist's note. PROCEDURE IN DETAIL: With the patient in the left lateral decubitus position, a flexible fiberoptic Olympus gastroscope was introduced into the esophagus under direct visualization without any difficulty. There was some patchy erythema noted in distal esophagus. The scope was then advanced with ease into the stomach, mucosa overlying the antrum and the body revealed some patchy erythema and [id number] edema, and biopsies were obtained and sent to stain for H. pylori. The pylorus was intubated with ease and the scope was advanced all the way to the second portion of the duodenum. Some scattered superficial minute ulcers were noted in the duodenal bulb and proximal second portion. Biopsies also were obtained to rule out sprue. The scope was then withdrawn back into the stomach and retroflexed, mucosa overlying the fundus and the cardia appeared to be within normal limits. The scope was then straightened out, it was subsequently withdrawn, and the patient tolerated the procedure well. IMPRESSION: 1. Distal esophagitis, mild. 2. Gastritis, biopsied, biopsies sent to stain for Helicobacter pylori. 3. Several superficial duodenal ulcers without active bleeding or stigmata of recent hemorrhage. 4. Rule out sprue. PLAN: Follow up histology. Initiate Pepcid 20 mg one p.o. b.i.d. The patient was then turned around and after adequate lubrication of the anal canal, a flexible fiberoptic Olympus colonoscope was inserted into the rectum with ease and advanced all the way to the cecum. The mucosa throughout the colon was diffusely inflamed and edematous, was scattered pseudomembranes that were more prominent in the right colon. The ileocecal valve was intubated and the scope was advanced into the terminal ileum. Biopsies were obtained. The scope was then withdrawn back into the colon. It was then withdrawn slowly. Some minimal diverticulosis was noted in the proximal ascending colon. As mentioned previously scattered pseudomembranes were noted throughout the colon, but were more prominent in the right colon. The rectum also revealed some mild inflammatory changes. The scope was then retroflexed into the distal rectum and small internal hemorrhoids were noted, none of which was actively bleeding. The scope was then straightened out, it was subsequently withdrawn, and the patient tolerated the procedure well. IMPRESSION: 1. Diffuse colitis with scattered pseudomembranes, more prominent on the right colon. 2. Diverticulosis. 3. Internal hemorrhoids, none actively bleeding. PLAN: Follow up histology. Increase vancomycin to 500 mg one p.o. q.6 hours. Roberto Duenas MD [facility] /[id number] cc: Saeid Duenas MD
[2019-07-02] MEDS: SODIUM CHLORIDE 0.9% 1000ML 1,000 ML IV SCH (20:40)
[2019-07-03] VITALS (8 sets, daily range): BP systolic 104–156; BP diastolic 53–66
[2019-07-03] MEDS: PIPERACILLIN/TAZO 2.25 GM 50 ML IV SCH ×2 (04:26→11:37)
[2019-07-03] MEDS: METRONIDAZOLE 500MG/NS 100ML 100 ML IV SCH ×4 (05:04→23:20)
[2019-07-03] MEDS: VANCOMYCIN 250MG/5ML ORAL SOLN PO SCH ×3 (06:09→17:14)
[2019-07-03] MEDS: SODIUM CHLORIDE 0.9% 1000ML 1,000 ML IV SCH (06:12)
[2019-07-03 06:35] LABS: BASOPHILS # (AUTO) 0.1 (0.0-0.1); BASOPHILS % 0.5 % (0.0-1.0); EOSINOPHILS # (AUTO) 0.2 (0.0-0.4); EOSINOPHILS % 2.4 % (0.0-6.0); HEMATOCRIT 30.8 % (34.2-44.1); HEMOGLOBIN 8.4 g/dL (12.0-16.0); LYMPHOCYTES # (AUTO) 2.7 (1.0-3.2); LYMPHOCYTES % 27.2 % (18.0-39.1); MEAN CORPUSCULAR HEMOGLOBIN 28.7 pg (28-32); MEAN CORPUSCULAR HGB CONC 27.3 g/dL (31-35); MEAN CORPUSCULAR VOLUME 105.1 fL (81-99); MONOCYTES # (AUTO) 0.6 (0.2-0.8); MONOCYTES % 5.9 % (4.4-11.3); NEUTROPHILS # (AUTO) 6.3 (2.1-6.9); NEUTROPHILS % 63.1 % (38.7-80.0); PLATELET COUNT 195 x10e3/uL (140-360); RED BLOOD COUNT 2.93 x10e6/uL (3.6-5.1); RED CELL DISTRIBUTION WIDTH 15.8 % (11.7-14.4)
--- NOTE | 2019-07-03 07:05 | NUR ---
BEDSIDE ROUNDS DONE WITH NIGHT NURSE. AT BEDSIDE.
[2019-07-03 07:44] LABS: ANION GAP 7.9 mmol/L (8-16); CALCIUM 7.2 mg/dL (8.4-10.2); CREATININE, SERUM 0.95 mg/dL (0.57-1.11); POTASSIUM 3.9 mmol/L (3.5-5.1)
--- NOTE | 2019-07-03 08:32 | NUR ---
[address] TO [address]. Remy CROW FOR PLAN. Addendum: 07/03/19 at 0836 by Lisa Márquez CM SENT TO R1
[2019-07-03] MEDS: TACROLIMUS 1 MG CAP PO SCH ×2 (09:00→17:00)
[2019-07-03] MEDS: PREDNISONE 5 MG TAB PO SCH (09:00)
[2019-07-03] MEDS: MYCOPHENOLATE MOFETIL 250 MG CAP PO SCH ×2 (09:00→17:00)
[2019-07-03] MEDS: FAMOTIDINE 20 MG/2 ML VIAL IV SCH ×2 (09:00→17:00)
[2019-07-03] MEDS: CHOLECALCIFEROL 1,000 UNIT TAB PO SCH (09:00)
--- NOTE | 2019-07-03 10:45 | NUR ---
DR CROW TO SEE PT. NEW ORDERS RECEIVED. FAMILY REMAINS AT BEDSIDE
--- NOTE | 2019-07-03 14:30 | NUR ---
PT RESTING QUIETLY. VISITORS AR BESIDE
--- NOTE | 2019-07-03 15:34 | NUR ---
R1 DETERMINATION: [facility] case account ending in [id number] has been reviewed and completed by PAS Physicians. Service Line: Level of Care (LOC) / Admission Status Review Initial patient type was submitted as: IO - Initial Observation PAS Recommendation: IN
[2019-07-03] MEDS: IRON SUCROSE 100 MG in SODIUM CHLORIDE 0.9% 100 ML 100 ML IV SCH (17:50)
--- NOTE | 2019-07-03 19:00 | NUR ---
RECEIVED PATIENT IN BEDSIDE SHIFT REPORT. PATIENT RESTING IN BED AT THIS TIME. NO PAIN REPORTED. NO S&S OF DISTRESS NOTED. BED LOCKED IN LOWEST POSITION, SIDE RAILS UPX2, CALL LIGHT IN REACH. AT BEDSIDE.
--- NOTE | 2019-07-03 19:10 | NUR ---
REPORT GIVEN TO ON COMING SHIFT. PT RESTING COMFORTABLE. AT BEDSIDE
[2019-07-03] MEDS: ONDANSETRON HCL INJ 2MG/ML 2ML 2 MG/ML VIAL IV PRN (20:15)
[2019-07-03] MEDS: CHOLESTYRAMINE 4 GM PACKET PO SCH (23:20)
--- NOTE | 2019-07-04 00:10 | Consultation ---
DATE OF CONSULTATION: 07/03/2019 REASON FOR CONSULTATION: Very difficult C. diff, requiring for the last 10 years, failed treatment. HISTORY OF PRESENT ILLNESS: This is a 68-year-old female, who has a history of renal transplant. She has a history of kidney disease. She had a renal transplant from her in 2002, but for the last 10 years, she has been having problem with diarrhea. She has C. diff for the last 10 years and she received fecal transplant by Dr. Isidro in the [facility] 10 years ago, then she got another one almost a year ago. She has been on extended and several courses of oral vancomycin. She is coming at this time because diarrhea was unstoppable. Overall, there was no fever or chills, abdominal pain, but she could not control it. The patient came here, underwent colonoscopy with Dr. Duenas yesterday, who confirmed that she does have C. diff and stools came back positive for Clostridium difficile. The patient is currently on oral vancomycin 500 q.i.d. and continued to have diarrhea. The patient has a renal transplant, diabetes mellitus, legally blind. She also have history of surgery on her right knee, which got infected with dehiscence of the wound and she have a chronic open wound, which she takes local vancomycin to be applied in the wound. She is seen by the Wound Care. The patient also has a history of . She is currently lying in bed comfortably, but complaining of severe diarrhea and weak. PAST MEDICAL HISTORY: As mentioned above. PAST SURGICAL HISTORY: Also mentioned above. ALLERGIES: NKA. SHE IS ALLERGIC TO LEVAQUIN AND BACTRIM. SOCIAL HISTORY: There is no smoking, drug abuse, or alcohol abuse. FAMILY HISTORY: Hypertension. REVIEW OF SYSTEMS: At the present time besides the diarrhea, weakness, and abdominal discomfort cramp like, she denies any. There is no fever, chills, nausea, vomiting, urgency, frequency, skin rash. She has a chronic wound on her leg. LABORATORY DATA: White count is 9.9, hemoglobin 8.4, her platelets 195. Urine culture showing gram-negative rods. Creatinine 0.95. Her C. difficile was positive as mentioned above. PHYSICAL EXAMINATION: GENERAL: She is currently alert, oriented, does not seem to be in acute distress. There is no fever since admission. HEENT: Normocephalic, not icteric. NECK: Supple. CHEST: Clear bilateral. HEART: S1, S2. No S3, S4, or murmur. ABDOMEN: Soft. Bowel sounds present. No tenderness. EXTREMITIES: No edema. SKIN: There is no rash and dehiscence of the wound with deep to the muscle on the left knee about 2 cm. The did show me a picture since the surgery, which was done 5 years ago till now. The joint itself has no redness or swelling. There is no pus coming from wound. The wound looks really good. 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 I discussed with the patient and her . I think they need to stay with oral vancomycin for extended period of time. She is not so sure of this was tried before. I would also recommend to give the patient an infusional single infusion of bezlotoxumab. I called the pharmacist to see if we have it here and if not available, were they are going to work on it. In the meantime, we would recommend to hydrate to compensate for diarrhea. 1. We will also add Questran t.i.d. 2 hours before the vancomycin. We will also can use Pepto-Bismol one q.4 hours p.r.n. diarrhea in the meantime and probiotic one p.o. b.i.d. 2. Renal transplant. Continue medication. I would recommend to lower the suppression to the minimum if possible so he can control the infection of Clostridium difficile. 3. Bacteriuria. Since she is asymptomatic, I would recommend to discontinue Zosyn since we have issue with her Clostridium difficile. We have to be very diligent about using antibiotic. 4. Chronic wound, discussed with the . Continue with local care. I do not see a way of getting around it. She has seen several orthopedic surgeons. 5. The patient is a poor candidate for any extensive surgery. 6. Debility and dehydration from her diarrhea. 7. I will follow with you. MD YASEMIN Herrera/MICHAEL /[id number]
[2019-07-04] MEDS: VANCOMYCIN 250MG/5ML ORAL SOLN PO SCH ×2 (00:45→06:30)
[2019-07-04 00:57] VITALS: BP 110/44
[2019-07-04] MEDS: ONDANSETRON HCL INJ 2MG/ML 2ML 2 MG/ML VIAL IV PRN (02:42)
--- NOTE | 2019-07-04 04:05 | NUR ---
MD Lori CROW IN TO SEE PATIENT
[2019-07-04 04:40] VITALS: BP 109/46
[2019-07-04] MEDS: SODIUM CHLORIDE 0.9% 1000ML 1,000 ML IV SCH (05:05)
[2019-07-04] MEDS: METRONIDAZOLE 500MG/NS 100ML 100 ML IV SCH (05:05)
[2019-07-04] MEDS ORDERED: SUCRALFATE 1 GM TAB PO SCH (07:30)
[2019-07-04 07:35] VITALS: BP 135/80
--- NOTE | 2019-07-04 07:35 | NUR ---
PATIENT IN BED WITH HEAD OF BED ELEVATED, NO DISTRESS NOTED. IV FLUID INFUSING ORDERED. HEEL PROTECTOR IN PLACE. BED IN LOWER POSITION, CALL LIGHT AT REACH.
[2019-07-04 08:00] VITALS: BP 135/80
[2019-07-04] MEDS: PREDNISONE 5 MG TAB PO SCH (09:12)
[2019-07-04] MEDS: TACROLIMUS 1 MG CAP PO SCH (09:12)
[2019-07-04] MEDS: MYCOPHENOLATE MOFETIL 250 MG CAP PO SCH (09:12)
[2019-07-04] MEDS: CHOLECALCIFEROL 1,000 UNIT TAB PO SCH (09:12)
[2019-07-04] MEDS: FAMOTIDINE 20 MG/2 ML VIAL IV SCH (09:12)
[2019-07-04] MEDS: CHOLESTYRAMINE 4 GM PACKET PO SCH (09:50)
--- NOTE | 2019-07-04 11:34 | NUR ---
PATIENT REPOSITIONED IN BED, IV FLUID INFUSING ORDERED. CALL LIGHT AT REACH.
[2019-07-04 12:00] VITALS: BP 155/66
[2019-07-04] MEDS ORDERED: ZOFRAN4 MG PO (12:22)
[2019-07-04] MEDS ORDERED: QUESTRAN PACKET4 GM PO (12:23)
--- NOTE | 2019-07-04 12:40 | NUR ---
PATIENT DISCHARGED HOME. DISCHARGE INSTRUCTIONS, PRESCRIPTIONS, AND FOLLOW UP GIVEN TO PATIENT AND , THEY VERBALIZED UNDERSTANDING. IV TO RIGHT AC REMOVED WITH TIP INTACT. ALL PERSONAL ITEMS TAKEN WITH PATIENT. LEFT UNIT PER WHEEL CHAIR TO FRONT LOBBY IN STABLE CONDITION.
== END 2019-07-04 12:42 | disposition home or self-care (01) | DRG 372 ==
LOC: ER 15:00 → ERHOLD 18:32 → MED/SURG3 07-01 00:15 → OBSVTOIN 07-03 09:02
PROC: 0DB68ZX Excision of Stomach, Via Natural or Artificial Opening Endoscopic, Diagnostic (ICD-10-PCS; 2019-07-02)
PROC: 0DBB8ZX Excision of Ileum, Via Natural or Artificial Opening Endoscopic, Diagnostic (ICD-10-PCS; principal; 2019-07-02 14:02)
PROC: 0DB98ZX Excision of Duodenum, Via Natural or Artificial Opening Endoscopic, Diagnostic (ICD-10-PCS; 2019-07-02 14:02)
PROC: 0DB78ZX Excision of Stomach, Pylorus, Via Natural or Artificial Opening Endoscopic, Diagnostic (ICD-10-PCS; 2019-07-02 14:02)
DX: A04.71 Enterocolitis due to Clostridium difficile, recurrent (principal); Z94.0 Kidney transplant status; E87.2 Acidosis; H54.8 Legal blindness, as defined in USA; E11.319 Type 2 diabetes mellitus with unspecified diabetic retinopathy without macular edema; E11.22 Type 2 diabetes mellitus with diabetic chronic kidney disease; N18.3 Chronic kidney disease, stage 3 (moderate); E86.0 Dehydration; R53.81 Other malaise; D64.9 Anemia, unspecified; S81.001A Unspecified open wound, right knee, initial encounter; Y83.9 Surgical procedure, unspecified as the cause of abnormal reaction of the patient, or of later complication, without mention of misadventure at the time of the procedure; R82.71 Bacteriuria; B96.1 Klebsiella pneumoniae [K. pneumoniae] as the cause of diseases classified elsewhere; I95.1 Orthostatic hypotension; K20.9 Esophagitis, unspecified; K29.70 Gastritis, unspecified, without bleeding; K26.9 Duodenal ulcer, unspecified as acute or chronic, without hemorrhage or perforation; K57.30 Diverticulosis of large intestine without perforation or abscess without bleeding; K64.8 Other hemorrhoids; Z79.899 Other long term (current) drug therapy; Z79.52 Long term (current) use of systemic steroids; Z88.6 Allergy status to analgesic agent; Z88.1 Allergy status to other antibiotic agents
CPT/HCPCS: 36415; 43239; 45378; 45380; 74176; 80048; 80053; 81001; 82570; 82607; 82728; 82746; 82948; 83540; 83690; 84156; 84466; 85025; 85045; 87086; 87186; 87493; 88305; 88312; 99284; G0378; J1756; J2250; J2405; J2543; J2765; J7030; J7507; J7512

== ENCOUNTER → 2020-03-02 | Outpatient (CLI) | payer MEDICARE, OTHER ==
[~2020-03-02] MED LIST: KEFLEX500 MG; MYCOPHENOLATE250 MG PO; NORCO 10-325 T1 EACH PO; NORVASC2.5 MG; PREDNISONE5 MG PO; QUESTRAN PACKET4 GM PO; TACROLIMUS1 MG PO; VITAMIN D32000 UNI2 PO; ZOFRAN4 MG PO
[2020-03-02 14:33] LABS: BASOPHILS % 0.2 % (0.0-1.0); EOSINOPHILS # (AUTO) 0.1 (0.0-0.4); EOSINOPHILS % 1.4 % (0.0-6.0); HEMATOCRIT 33.3 % (34.2-44.1); HEMOGLOBIN 9.8 g/dL (12.0-16.0); LYMPHOCYTES % 19.9 % (18.0-39.1); MEAN CORPUSCULAR HEMOGLOBIN 28.2 pg (28-32); MEAN CORPUSCULAR HGB CONC 29.4 g/dL (31-35); MONOCYTES # (AUTO) 0.8 (0.2-0.8); MONOCYTES % 8.6 % (4.4-11.3); NEUTROPHILS # (AUTO) 6.8 (2.1-6.9); NEUTROPHILS % 69.5 % (38.7-80.0); PLATELET COUNT 256 x10e3/uL (140-360); RED BLOOD COUNT 3.47 x10e6/uL (3.6-5.1); RED CELL DISTRIBUTION WIDTH 14.7 % (11.7-14.4)
[2020-03-02 15:10] LABS: ERYTHROCYTE SEDIMENTATION RATE 90 mm/hr (0-20)
[2020-03-02 16:01] LABS: BODY FLUID APPEARANCE TURBID; BODY FLUID COLOR RED; BODY FLUID TYPE SYNOVIAL
[2020-03-02 16:02] LABS: RBC,BODY FLUID 397584 cells/uL; WBC,BODY FLUID 183348 cells/uL
[2020-03-02 16:43] LABS: LYMPHOCYTES,BODY FLUID 16 %; MONO/MACROPHG,BODY FLUID 8 %; NEUTROPHILS,BODY FLUID 76 %
== END ==
LOC: LAB 13:29
PROVIDERS: ATTEND Specialist
DX: M25.562 Pain in left knee (principal)
CPT/HCPCS: 36415; 85025; 85651; 86140; 87070; 87071; 87075; 87102; 87116; 87186; 87205; 87206; 89051; 89060

== ENCOUNTER 2020-03-04 18:04 | Inpatient (IN) | payer MEDICARE, OTHER ==
[~2020-03-04] VITALS: Ht 167.6 cm; Wt 68.0 kg
[~2020-03-04 18:04] MED LIST changes: -KEFLEX500 MG; -NORVASC2.5 MG
--- NOTE | 2020-03-04 18:40 | Emergency Department Note ---
History of Present Illnes History of Present Illness Chief Complaint: General Medicine Complaints History of Present Illness This is a 69 year old female sent to the ED via PCP for abnormal lab work.. Chief Complaint Comment 69 Y/O FEMALE PT AAOX3 PRESENTS TO THE ER FOR "ABNORMAL LABS"; PT STATES SHE HAD BLOOD WORK DONE YESTERDAY FRO PRE-OP FOR ABSCESS TO LT KNEE; PT STATES DR. Deniz DUENAS TOLD HER TO COME TO THE ER FOR IV FLUIDS D/T ABNORMAL LABS; PT HAS NO COMPLAINTS AT THIS TIME; V/S/S; PT IS LEGALLY BLIND; NAD NOTED AT THIS TIME. Historian: Patient Arrival Mode: Car (SOPHIE DICKEY DO) Arrival Mode: Car Drop Shipment Clerk Required: No Onset (how long ago): unknown Location: None Quality: None Radiation: Reports non-radiation Severity: mild Onset quality: unable to specify Timing of current episode: unable to specify Progression: unchanged Chronicity: new Context: Reports recent illness (Knee abscess), Reports recent surgery (I&D) Relieving factors: none Exacerbating factors: none Associated symptoms: Reports denies other symptoms Treatments prior to arrival: none (JOJO CEDILLO MD) Past Medical/Family History Physician Review I have reviewed the patient's past medical and family history. Any updates have been documented here. (SOPHIE DICKEY DO) Past Medical History Recent Fever: No Clinical Suspicion of Infectio: No New/Unexplained Change in Ment: No Past Medical History: Diabetes, ESRD, Chronic Kidney Disease Other Medical History: LEGALLY BLIND ( BOTH EYES) HX OF FALLS C-DIFF FECAL TRANSPLANT Past Surgical History: Other Surgery: coccyx surgery, right kidney transplant (2002), left knee surgery (SOPHIE DICKEY DO) Review of Systems Review of Systems Constitutional: Reports no symptoms EENTM: Reports no symptoms Cardiovascular: Reports no symptoms Respiratory: Reports no symptoms Gastrointestinal: Reports no symptoms Genitourinary: Reports no symptoms Musculoskeletal: Reports as per HPI, Reports other (L knee swelling(old)) Integumentary: Reports no symptoms Neurological: Reports no symptoms Psychological: Reports no symptoms Endocrine: Reports no symptoms Hematological/Lymphatic: Reports no symptoms (JOJO CEDILLO MD) Physical Exam Related Data Allergies: Coded Allergies: aspirin (Verified Allergy, Intermediate, 06/26/19) levofloxacin (Verified Allergy, Intermediate, 06/26/19) sulfamethoxazole (Verified Allergy, Intermediate, 06/26/19) trimethoprim (Verified Allergy, Intermediate, 06/26/19) Triage Vital Signs Vital Signs Date Time Temp Pulse Resp B/P (MAP) Pulse Ox O2 Delivery O2 Flow Rate FiO2 03/04/20 18:25 98.8 80 18 160/67 100 Room Air ([facility], ) Vital signs reviewed: Yes (JOJO CEDILLO MD) Physical Exam CONSTITUTIONAL HENT EYES NECK PULMONARY CARDIOVASCULAR GASTROINTESTINAL GENITOURINARY SKIN MUSCULOSKELETAL NEUROLOGICAL PSYCHOLOGICAL ([facility], DO) Constitutional: Present well-developed, Present well-nourished HENT: Present normocephalic, Present atraumatic, Present oropharynx clear/moist, Present nose normal HENT L/R: Present left ext ear normal, Present right ext ear normal Eyes: Reports PERRL, Reports conjunctivae normal Neck: Present ROM normal Pulmonary: Present effort normal, Present breath sounds normal Cardiovascular: Present regular rhythm, Present heart sounds normal, Present capillary refill normal, Present normal rate Abdominal: Present soft, Present nontender, Present bowel sounds normal Genitourinary: Present exam deferred Skin: Present warm, Present dry Musculoskeletal: Present swelling (L knee, erythema, warmth. Brace in place) Neurological: Present alert, Present oriented x 3, Present no gross motor or sensory deficits Psychological: Present mood/affect normal, Present judgement normal (JOJO CEDILLO MD) Results Laboratory Lab results reviewed: Yes (JOJO CEDILLO MD) Imaging Imaging results reviewed: Yes (JOJO CEDILLO MD) Assessment & Plan Medical Decision Making MDM 69 y.o f presents for abnormal lab. Patient had bacteria grow out of her wound culture in knee which requires Meropenam. Discussed with Dr. Remy Duenas and will admit to him with Dr. Wright consult for ID. Dr Perez also consulted. (JOJO CEDILLO MD) Reassessment Reassessment time: 20:42 Reassessment Well appearing, NAD (JOJO CEDILLO MD) Assessment & Plan Final Impression: (1) Wound infection (JOJO CEDILLO MD) Depart Disposition: ADMITTED Last Vital Signs Date Time Temp Pulse Resp B/P (MAP) Pulse Ox O2 Delivery O2 Flow Rate FiO2 03/04/20 18:25 98.8 80 18 160/67 100 Room Air (SOPHIE DICKEY DO) Home Meds Reported Medications Amlodipine Besylate (NORVASC) 2.5 Mg Tablet 03/05/20 Cephalexin Monohydrate (KEFLEX) 500 Mg Capsule 03/05/20 Cholestyramine (With Sugar) (QUESTRAN PACKET) 4 Gm Packet, 4 GM PO BID, PACKET 07/04/19 Ondansetron Hcl* (ZOFRAN*) 4 Mg Tablet, 4 MG PO Q4HR PRN for NAUSEA AND VOMITING, #20 07/04/19 Cholecalciferol (Vitamin D3) (Vitamin D3) 2,000 Unit Tab.chew, 1 TAB PO DAILY 06/30/19 Prednisone (PREDNISONE) 5 Mg Tablet, 5 MG PO DAILY 06/30/19 Mycophenolate Mofetil (MYCOPHENOLATE MOFETIL) 250 Mg Capsule, 250 MG PO BID, CAP 06/30/19 Tacrolimus (TACROLIMUS) 1 Mg Capsule, 2 MG PO DAILY@1700, #30 CAP 06/30/19 Tacrolimus (TACROLIMUS) 1 Mg Capsule, 1 MG PO DAILY, #30 CAP 06/30/19 Hydrocodone Bit/Acetaminophen (NORCO 10-325 TABLET) 1 Each Tablet, 1 TAB PO Q12H PRN for MODERATE PAIN (4-6) 06/30/19 SOPHIE DICKEY DO Mar 04, 2020 18:40 JOJO CEDILLO MD Mar 04, 2020 19:09
[2020-03-04 18:53] LABS: BASOPHILS % 0.2 % (0.0-1.0); EOSINOPHILS % 0.3 % (0.0-6.0); HEMATOCRIT 33.1 % (34.2-44.1); HEMOGLOBIN 9.9 g/dL (12.0-16.0); LYMPHOCYTES # (AUTO) 0.6 (1.0-3.2); LYMPHOCYTES % 6.4 % (18.0-39.1); MEAN CORPUSCULAR HEMOGLOBIN 28.1 pg (28-32); MEAN CORPUSCULAR HGB CONC 29.9 g/dL (31-35); MONOCYTES # (AUTO) 0.4 (0.2-0.8); MONOCYTES % 3.7 % (4.4-11.3); NEUTROPHILS # (AUTO) 8.8 (2.1-6.9); NEUTROPHILS % 89.1 % (38.7-80.0); PLATELET COUNT 275 x10e3/uL (140-360); RED BLOOD COUNT 3.52 x10e6/uL (3.6-5.1); RED CELL DISTRIBUTION WIDTH 14.4 % (11.7-14.4)
[2020-03-04 19:12] LABS: ALANINE AMINOTRANSFERASE 16 IU/L (0-55); ALBUMIN 2.7 g/dL (3.5-5.0); ALBUMIN/GLOBULIN RATIO 0.6 (0.8-2.0); ALKALINE PHOSPHATASE 87 IU/L (40-150); ANION GAP 14.1 mmol/L (8-16); BLOOD UREA NITROGEN 37 mg/dL (7-26); BUN/CREATININE RATIO 22 (6-25); CALCIUM 9.3 mg/dL (8.4-10.2); CARBON DIOXIDE 25 mmol/L (22-29); CHLORIDE 102 mmol/L (98-107); CREATINE KINASE 24 IU/L (29-168); CREATININE, SERUM 1.66 mg/dL (0.57-1.11); EST GLOMERULAR FILTRATION RATE 31 ML/MIN (60-); GLUCOSE 244 mg/dL (74-118); POTASSIUM 5.1 mmol/L (3.5-5.1); SODIUM 136 mmol/L (136-145)
[2020-03-04 19:23] LABS: CREATINE KINASE MB < 1.00 ng/mL (0-4.3)
--- OUTSIDE RECORDS SUMMARY | 2020-03-04 20:04 | XMS REPORT | Clinical Summary ---
Author Author [facility] Address Unknown Phone Unavailable Care Team Providers Care Power System Dispatcher Name Role Phone Tori Valdez MD PCP Allergies Comments Active Allergy Reactions Severity Noted Date Only use paper tape Adhesive Tape-Silicones 12/31/2018 Aspirin Hives 07/15/2018 Cefdinir Diarrhea High 01/01/2019 Doxycycline Diarrhea High 01/01/2019 Levofloxacin GI 07/15/2018 Intolerance Sulfamethoxazole-Trimetho GI 07/15/2018 prim Intolerance Medications End Date Status Medication Sig Dispensed Refills Start Date Active mycophenolate (CELLCEPT) Take 250 mg 0 250 mg capsule by mouth 2 (two) times a day. Active tacrolimus (PROGRAF) 1 MG Take 1 mg by 0 capsule mouth every morning. Active predniSONE (DELTASONE) 5 Take 5 mg by 0 mg tablet mouth every other day. 1 tablet every other day Active pen needle, diabetic 31 Use with 200 each 2 gauge x 3/16" needle insulin 5 9 times a day Dx: E11.9 Active HYDROcodone-acetaminophen Take 1 tablet 0 (XODOL) 5-300 mg per by mouth tabletIndications: acute every 12 pain (twelve) hours as needed for moderate pain .Acute Pain. Active tacrolimus (PROGRAF) 1 MG Take 2 mg by 0 capsule mouth every evening. Active insulin GLARGINE (LANTUS) Inject 12 0 100 unit/mL injection Units under (vial) the skin nightly. If BS < 150 = 0 units If BS 150 -200 =12 units Active insulin lispro (HumaLOG) Inject 2-5 0 100 unit/mL injection Units under the skin 3 (three) times a day before meals. Active sodium chloride 0.45 % Infuse 100 0 01/17/ 01 parenteral solution 1,000 mL/hr into a 9 mL with sodium venous bicarbonate 1 mEq/mL (8.4 catheter %) solution 150 mEq continuously. Active Problems Problem Noted Date Colitis, Clostridium difficile 01/17/2019 Colitis 01/13/2019 Pyelonephritis 12/31/2018 Ulcer of left knee 10/28/2018 Cellulitis of left knee 08/08/2018 Legally blind in left eye, as defined in [place] 019 Essential hypertension 07/15/2018 Diabetes mellitus 07/15/2018 Renal transplant, status post 07/15/2018 Immunosuppressed status 07/15/2018 Normocytic anemia 07/15/2018 Acute renal insufficiency 07/15/2018 Encounters Care Team Description Date Type Specialty MillsMichelle Walls MA 07/08/2019 Telephone Family Medicine Adams Barrera MD Pyogenic arthritis of left knee joint, d ue to unspecified organism (HCC) (Primary Dx); Chronic pain of left knee; Wound dehiscence 05/23/2019 Office Visit Orthopedic Surgery after 03/04/2019 Surgical History Surgery Date Site/Laterality Comments TRANSPLANTATION, KIDNEY SECTION STENT Medical History Medical History Date Comments Kidney transplant complication Hypertension Diabetes mellitus (HCC) Legally blind Social History Date Tobacco Use Types Packs/Day Years Used Never Smoker Smokeless Tobacco: Never Used Drinks/Week oz/Week Comments Alcohol Use No Alcohol Habits Answer Date Recorded How often do you have a drink containing alcohol? Never 07/15/2018 How many drinks containing alcohol do you have on No t asked a typical day when you are drinking? How often do you have six or more drinks on one Not asked occasion? Sex Assigned at Date Recorded Not on file Last Filed Vital Signs Not on file Plan of Treatment Health Maintenance Due Date Last Done Comments DIABETES: RETINAL EYE 1960 EXAM BREAST CANCER SCREENING 2000 COLONOSCOPY SCREENING 2000 SHINGLES VACCINES (#1) 2000 INFLUENZA VACCINE 11/29/2019 01/28/2018 DIABETIC FOOT EXAM 12/10/2019 12/09/2018 65+ PNEUMOCOCCAL VACCINE Completed 07/15/2016, 07/16/2015 Implants Device Identifier Shelf Expiration Date Model / Serial / L ot Implanted Type Area Manufactur er Ipm Implant Devices IPM Knee IMPLANT DEVICES Knee Implants, Repairs, Knee Reconstruction Implants, Repairs, Reconstruc tion Results Not on fileafter 03/04/2019 Additional Health Concerns Last Indicated Resolved Time Infection Onset Date 08/12/2018 C.Difficile (E) 08/10/2018 Insurance Type Payer Benefit Subscriber ID Effective Phone Address Plan / Dates Group Medicare MEDICARE MEDICARE [id number] [id number] [place], [place] AND resent [place] B [id number] [id number] FOR LIFE resent MCR SUPPLEMENT Advance Directives For more information, please contact: [phone] Patient Husbandry Technician Explanation Type Date Recorded Advance Directives, 08/08/2018 9:50 PM Living Will and Medical Power of Food Court Team Member Date Inactivated Comments Code Status Date Activated 01/18/2019 6:53 PM Full Code 01/13/2019 4:27 PM Code Status decision reached by: Patient 01/03/2019 7:59 PM Full Code 12/31/2018 11:52 PM Code Status decision reached by: Patient
--- OUTSIDE RECORDS SUMMARY | 2020-03-04 20:05 | XMS REPORT | Continuity of Care Document ---
Author Author [facility] t Organization [facility] Address [address] [place] [address] Phone Unavailable Care Team Providers Care Stummel Selector Name Role Phone MIGNON SHAW, KHALIDA PCP Michelle Mills MA Attphys Unavailable JASON WATSON Attphys Unavailable Art BENITEZ Attphys Unavailable Bruce SHAW, Kiran Lamas Attphys RYAN COBB M.D. Attphys Unavailable WILD BERNARD Attphys Unavailable ORIN PARISH M.D. Attphys Unavailable Payers Payer Name Policy Type Policy Number Effective Date Expiration Date S erasto MEDICAREMEDICARE PART A AND [id number] 1997-PresentHOUS SUSANNE RIMedicare [id number] 1997 00:00:00 [place] [facility] [id number] 2019-Pr esentMilitary [id number] 2018 00:00:00 [place] Nad[place] Chaves o [id number] 2019 00:00:00 [facility] Medicare A & B [id number] 1997 00:00:00 [facility] Problems Condition Name Condition Details Condition Category Status Onset Date Resolution Date Last Treatment Date Treating Clinician Comments Source Colitis, Clostridium difficile Colitis, Clostridium difficile Disea se Active 2019-01-17 00:00:00 Aamir Zuniga Colitis Colitis Disease Active 2019-01-13 00:00:00 Aamir Zuniga Pyelonephritis Pyelonephritis Disease Active 2018-12-31 00:00:00 Aamir Zuniga Ulcer of left knee Ulcer of left knee Disease Active 2018-10-28 00:00:0 0 Aamir Zuniga Cellulitis of left knee Cellulitis of left knee Disease Active 2018-08-08 00:00:00 Aamir carlos Legally blind in left eye, as defined in [place] Legally b ramona in left eye, as defined in [place] Disease Active 2018-07-16 00:00:00 Aamir Zuniga Essential hypertension Essential hypertension Disease Active 2018-07-15 00:00:00 Aamir carlos Diabetes mellitus Diabetes mellitus Disease Active 2018-07-15 00:00:00 Aamir Zuniga Renal transplant, status post Renal transplant, status post Disease Active 2018-07-15 00:00:00 Aamir Zuniga Immunosuppressed status Immunosuppressed status Disease Active 2018-07-15 00:00:00 Aamir calros Normocytic anemia Normocytic anemia Disease Active 2018-07-15 00:00:00 Aamir Zuniga Acute renal insufficiency Acute renal insufficiency Disease Ac tive 2018-07-15 00:00:00 Aamir carlos History of diabetes mellitus History of diabetes mellitus Problem Re solved [facility] History of kidney disease History of kidney disease Problem Resolved [facility] Open knee wound Open knee wound Problem Active [facility] Open wound of left knee, initial encounter Open wound of left knee, initial encounter Problem Active [facility] Arthritis of left knee Arthritis of left knee Problem Active [facility] Allergies, Adverse Reactions, Alerts Allergy Name Allergy Type Status Severity Reaction(s) Onset Date Inacti ve Date Treating Clinician Comments Source Aspirin Allergy to Substance Active Moderate 2019-06-26 00:00:00 [facility] Sulfamethoxazole Allergy to Substance Active Moderate 2019-06-01 7 00:00:00 [facility] Trimethoprim Allergy to Substance Active Moderate 2019-06-26 00:00 :00 [facility] Levofloxacin Allergy to Substance Active Moderate 2019-06-26 00:00 :00 [facility] Sulfa (Sulfonamide Antibiotics) DA Active U 2019-03-04 00 :00:00 [facility] aspirin DA Active U 2019-03-04 00:00:00 [facility] doxycycline DA Active U 2019-03-04 00:00:00 [facility] levofloxacin DA Active U 2019-03-04 00:00:00 [facility] cefdinir DA Active U 2019-03-04 00:00:00 [facility] Cefdinir Propensity to adverse reactions to drug Active Diarrhea 2019-01-01 00:00:00 Aamir Panchalis rebekah Doxycycline Propensity to adverse reactions to drug Active Diarrhea 2019-01-01 00:00:00 Aamir welch Adhesive Tape-Silicones Propensity to adverse reactions to drug Activ e 2018-12-31 00:00:00 Only use paper tape Aamir Zuniga Aspirin Propensity to adverse reactions to drug Active Hives 2018-07-15 00:00:00 Aamir Lamb t Levofloxacin Propensity to adverse reactions to drug Active GI Intolerance 2018-07-15 00:00:00 Aamir rapp Sulfamethoxazole-Trimethoprim Propensity to adverse reactions to dr ug Active GI Intolerance 2018-07-15 00:00:00 Luisa arteaga Jewish Aspirin Free Analgesic TABS drug allergy Active [facility] Septra TABS drug allergy Active [facility] Cefdinir CAPS drug allergy Active [facility] Doxycycline Hyclate CAPS drug allergy Active [facility] Levaquin TABS drug allergy Active [facility] Social History Social Habit Start Date Stop Date Quantity Comments Source History SDOH Alcohol Std Drinks Aamir Zuniga History SDOH Alcohol Binge [place] Jewish Sex Assigned At Liliana shultzchandler Zuniga Tobacco use and exposure 2019-01-13 00:00:00 2019-01-13 00:00:00 Damaris r used Aamir Zuniga Alcohol intake 2019-01-13 00:00:00 2019-01-13 00:00:00 Current non-drinker of alcohol (finding) Aamir Jewish History SDOH Alcohol Frequency 2018-07-15 00:00:00 2018-07-15 00:00:0 0 1 Aamir Panchalist Smoking Status Start Date Stop Date Source Never smoker Aamir welch Medications Ordered Medication Name Filled Medication Name Start Date Stop Da te Current Medication? Ordering Clinician Indication Dosage Frequency Signature (SIG) Comments Components Source mycophenolate (CELLCEPT) 250 mg capsule 2019-01-18 14:53:54 Yes 250mg Q.5D Take 250 mg by mouth 2 (two) times a day. Aamir Zuniga tacrolimus (PROGRAF) 1 MG capsule 2019-01-18 14:53:54 Yes 1mg QD Take 1 mg by mouth every morning. Aamir rapp predniSONE (DELTASONE) 5 mg tablet 2019-01-18 14:53:54 Yes 5mg Q48H Take 5 mg by mouth every other day. 1 tablet every other day Aamir Zuniga HYDROcodone-acetaminophen (XODOL) 5-300 mg per tablet 2019-01-18 14:53:54 Yes acute pain 1{tbl} Q12H Take 1 tablet b y mouth every 12 (twelve) hours as needed for moderate pain .Acute Pain. Omkar Zuniga tacrolimus (PROGRAF) 1 MG capsule 2019-01-18 14:53:54 Yes 2mg QD Take 2 mg by mouth every evening. Aamir hamilton insulin GLARGINE (LANTUS) 100 unit/mL injection (vial) 2019-01-18 14:53:54 Yes 12U QD Inject 12 Units under the skin nightly. If BS < 150 = 0 unitsIf BS 150 -200 =12 units Aamir Zuniga insulin lispro (HumaLOG) 100 unit/mL injection 2019-01-18 14:53: 54 Yes 2U [id number] Inject 2-5 Units under the s kin 3 (three) times a day before meals. Aamir Zuniga sodium chloride 0.45 % parenteral soluti on 1,000 mL with sodium bicarbonate 1 mEq/mL (8.4 %) solution 150 mEq 2019-01-17 00:00:00 Yes 100mL/h Infuse 100 mL/hr into a venous catheter continuously. Aamir Zuniga pen needle, diabetic 31 gauge x 3/16" needle 2018-07-31 00:00:00 Yes Use with insulin 5 times a day Dx: E11.9 Aamir Zuniga predniSONE 5 MG Oral Tablet predniSONE 5 MG Oral Tablet Yes [facility] Amoxicillin 875 MG Oral Tablet Amoxicillin 875 MG Oral Tablet Yes [facility] Mycophenolate Mofetil 250 MG Oral Capsule Mycophenolat e Mofetil 250 MG Oral Capsule Yes [facility] Tacrolimus 1 MG Oral Capsule Tacrolimus 1 MG Oral Capsule Yes [facility] HYDROcodone-Acetaminophen 5-300 MG Oral Tablet HYDROco done-Acetaminophen 5-300 MG Oral Tablet Yes [facility] Cholecalciferol (Vitamin D3) (Vitamin D3) 2,000 Unit T ab.chew Cholecalciferol (Vitamin D3) (Vitamin D3) 2,000 Unit Tab.chew Yes 1 Daily [facility] Cholestyramine (With Sugar) (Questran Packet) 4 Gm Pac ket Cholestyramine (With Sugar) (Questran Packet) 4 Gm Packet Yes 4 T wice A Day [facility] Hydrocodone Bit/Acetaminophen ([place] 10-325 Tablet) 1 Each Tablet Hydrocodone Bit/Acetaminophen ([place] 10-325 Tablet) 1 Each Tablet Yes 1 Every 12 Hours as needed for Moderate Pain (4-6) [facility] Mycophenolate Mofetil 250 Mg Capsule Mycophenolate Mofetil 250 Mg C apsule Yes 250 Twice A Day [facility] Ondansetron Hcl (Zofran*) 4 Mg Tablet Ondansetron Hcl (Zofran*) 4 M g Tablet Yes 4 Every 4 Hours as needed for Nausea And V omiting [facility] Prednisone 5 Mg Tablet Prednisone 5 Mg Tablet Yes 5 Daily [facility] Tacrolimus 1 Mg Capsule Tacrolimus 1 Mg Capsule Yes 1 Daily [facility] Tacrolimus 1 Mg Capsule Tacrolimus 1 Mg Capsule Yes 2 Daily@1700 [facility] Vital Signs Vital Name Observation Time Observation Value Comments Source Height 2019-01-07 11:51:00 65 [in_us] [facility] Weight 2019-01-07 11:51:00 145 [lb_av] [facility] Body Mass Index Calculated 2019-01-07 11:51:00 24.13 kg/m2 [facility] Procedures Procedure Date / Time Performed Performing Clinician Sourbenjamin e EGD with biopsy 2019-07-02 00:00:00 MARIANN CROW [facility] Colonoscopy with biopsy 2019-07-02 00:00:00 MARIANN CROW [facility] CT of abdomen and pelvis without contrast 2019-06-30 00:00:00 JASON MARY [facility] Computed tomography of abdomen and pelvis with contrast 2019 00:00:00 EUGENIAMaameSOPHIE [facility] [[facility]] C-REACTIVE PROTEIN 2019-01-07 00:00:00 [facility] [[facility]] SED RATE BY MODIFIED WESTERGREN 2019-01-07 00:00:00 [facility] [[facility]] CBC (INCLUDES DIFF/PLT) 2019-01-07 00:00:00 [facility] [[facility]] HEMOGLOBIN A1c 2019-01-07 00:00:00 [facility] [B] ALBUMIN SERUM 2019-01-07 00:00:00 [facility] [U] XRAY KNEE 3 VWS LEFT [id number] 2019-01-07 00:00:00 [facility] History of section [facility] History of Kidney transplantation [facility] Plan of Care Planned Activity Planned Date Details Comments Source Future Scheduled Test 2019-12-10 00:00:00 DIABETIC FOOT EXAM [code = DIABETIC FOOT EXAM] [facility] Future Scheduled Test 2019-11-29 00:00:00 INFLUENZA VACCINE [code = INFLUENZA VACCINE] [facility] Future Scheduled Test 2000 00:00:00 BREAST CANCER SCRE ENING [code = BREAST CANCER SCREENING] [facility] Future Scheduled Test 2000 00:00:00 COLONOSCOPY SCREEN ING [code = COLONOSCOPY SCREENING] [facility] Scheduled Test 2000 00:00:00 SHINGLES VACCINES (#1) [code = SHINGLES VACCINES (#1)] [facility] Future Scheduled Test 1960 00:00:00 DIABETES: RETINAL EYE EXAM [code = DIABETES: RETINAL EYE EXAM] [facility] Encounters Start Date/Time End Date/Time Encounter Type Admission Type [facility] Facility Care Department Encounter ID Source 2019-07-03 09:02:00 2019-07-04 12:42:00 Discharged Inpatient 1 JASON WATSON [facility] [id number] [facility] 2019-06-26 18:21:00 2019-06-27 02:35:00 Departed Emergency Room 1 VIVIANE BENITEZ [facility] [id number] [facility] 2019-05-20 19:01:00 2019-05-20 19:01:00 Emergency E [id number] 2019-04-11 08:44:00 2019-04-11 08:44:00 Outpatient [facility] [id number] [facility] 2019-03-25 12:45:00 2019-03-25 12:45:00 Outpatient [facility] [id number] [facility] 2019-01-07 11:00:00 2019-01-07 11:00:00 Appointment; RYAN COBB M.D. DOHERTY, DAVID, M.D. [facility] [id number] [facility] 2018-10-29 13:45:00 2018-10-29 13:45:00 Appointment; WILD BERNARD ANDREW [facility] [id number] [facility] 2018-10-29 12:30:00 2018-10-29 12:30:00 Outpatient [facility] [id number] [facility] 2018-10-10 12:30:00 2018-10-10 12:30:00 Appointment; FARHANA PARISH M.D. MATHIS, KENNETH, M.D. [facility] [id number] [facility] 2018-10-10 11:30:00 2018-10-10 11:30:00 Appointment; FARHANA PARISH M.D. MATHIS, KENNETH, M.D. [facility] UTP [id number] [facility] Results Test Description Test Time Test Comments Results Result Comments Source Bedside Glucose 2019-07-04 11:41:00 Test Item Bedside Glucose (test code = 03544-0) 130 70-120 H Meter ID: [id number] [facility]als of [facility] CampusUrine Culture 2019-07-04 07:56:00* Test Item Value Reference Range Interpretation Comments Urine Culture (test code = 630-4) No Result Data Provided [facility] CampusFolate2020-03-06 05:14:00* Test Item Value Reference Range Interpretation Comments Folate (test code = 2284-8) 7.1 >3.0 A serum folate concentration of less than 3.1 ng/mL isconsidered to represent cl inical deficiency.Performed at: [facility] [address] [id number] Director: Basil Anderson MD, Phone: [phone] Behavioral Health Hospitalodium Diwmh9689-65-39 07:51:00* Test Item Value Reference Range Interpretation Comments Sodium Level (test code = 2951-2) 137 136-145 [facility] CampusPotassium Djjdw0331-80-69 07:51:00* Test Item Value Reference Range Interpretation Comments Potassium Level (test code = 2823-3) 3.9 3.5-5.1 [facility] CampusChloride Nihas3968-93-12 07:51:00* Test Item Value Reference Range Interpretation Comments Chloride Level (test code = 2075-0) 118 98-107 H [facility] CampusCarbon Dioxide Glfnz1934-00-47 07:51:00* Test Item Value Reference Range Interpretation Comments Carbon Dioxide Level (test code = 2028-9) 15 22-29 L [facility] CampusAnion Ozg9964-06-51 07:51:00* Test Item Value Reference Range Interpretation Comments Anion Gap (test code = 86287-6) 7.9 8-16 L [facility] CampusBlood Urea Tizjpydi9799-84-71 07:51:00* Test Item Value Reference Range Interpretation Comments Blood Urea Nitrogen (test code = 3094-0) 9 7-26 [facility] CampusCreatinine2020-03-05 07:51:00* Test Item Value Reference Range Interpretation Comments Creatinine (test code = 2160-0) 0.95 0.57-1.11 [facility] CampusBUN/Creatinine Gwpax6543-21-74 07:51:00* Test Item Value Reference Range Interpretation Comments BUN/Creatinine Ratio (test code = 3097-3) 9 6-25 [facility] CampusEstimat Glomerular Filtration Rate 2019-07-03 07:51:00* Test Item Value Reference Range Interpretation Comments Estimat Glomerular Filtration Rate (test code = 594088881) 58 >60 L Ranges were taken from the National Kidney Disease Education Program and the [facility] Kidney Foundation literature.Reference ranges:60 or greater: Vngcto15-61 ( for 3 consecutive months): Chronic kidney disease 15 or less: Kidney failureThe Hospitals of Providence Transmountain CampusGlucose Qiust6092-84-47 07:51:00* Test Item Value Reference Range Interpretation Comments Glucose Level (test code = BSU6297) 60 74-118 L [facility] CampusCalcium Gnrwq7832-25-06 07:51:00* Test Item Value Reference Range Interpretation Comments Calcium Level (test code = 94439-8) 7.2 8.4-10.2 L [facility] CampusPlatelet Morphology Aglwzlz4066-62-62 07:14:00* Test Item Value Reference Range Interpretation Comments Platelet Morphology Comment (test code = 54841-7) NO EDTA PLT CLUMP S SEEN [facility] CampusWhite Blood Bwlnb4391-29-77 06:36:00* Test Item Value Reference Range Interpretation Comments White Blood Count (test code = 6690-2) 9.90 4.8-10.8 [facility] CampusRed Blood Ohduh8886-13-57 06:36:00* Test Item Value Reference Range Interpretation Comments Red Blood Count (test code = 789-8) 2.93 3.6-5.1 L [facility] CampusHemoglobin2020-03-05 06:36:00* Test Item Value Reference Range Interpretation Comments Hemoglobin (test code = 39939-2) 8.4 12.0-16.0 L [facility] CampusHematocrit2020-03-05 06:36:00* Test Item Value Reference Range Interpretation Comments Hematocrit (test code = 4544-3) 30.8 34.2-44.1 L [facility] CampusMean Corpuscular Xrhsul8484-60-73 06:36:00* Test Item Value Reference Range Interpretation Comments Mean Corpuscular Volume (test code = 787-2) 105.1 81-99 H [facility] CampusMean Corpuscular Aagesvqvxe2203-24-76 06:36:00* Test Item Value Reference Range Interpretation Comments Mean Corpuscular Hemoglobin (test code = 785-6) 28.7 28-32 [facility] CampusMean Corpuscular Hemoglobin Concent 2019-07-03 06:36:00* Test Item Value Reference Range Interpretation Comments Mean Corpuscular Hemoglobin Concent (test code = 786-4) 27.3 31-35 L [facility] CampusRed Cell Distribution Pxaic0049-83-04 06:36:00* Test Item Value Reference Range Interpretation Comments Red Cell Distribution Width (test code = 99473-3) 15.8 11.7 -14.4 H [facility] CampusPlatelet Kqxkt2452-05-66 06:36:00* Test Item Value Reference Range Interpretation Comments Platelet Count (test code = 777-3) 195 140-360 [facility] CampusNeutrophils (%) (Auto)2019-07-03 06:36:00 * Test Item Value Reference Range Interpretation Comments Neutrophils (%) (Auto) (test code = 10490-8) 63.1 38.7-80.0 [facility] CampusLymphocytes (%) (Auto)2019-07-03 06:36:00 * Test Item Value Reference Range Interpretation Comments Lymphocytes (%) (Auto) (test code = 736-9) 27.2 18.0-39.1 [facility] CampusMonocytes (%) (Auto)2019-07-03 06:36:00* Test Item Value Reference Range Interpretation Comments Monocytes (%) (Auto) (test code = 5905-5) 5.9 4.4-11.3 [facility] CampusEosinophils (%) (Auto)2019-07-03 06:36:00 * Test Item Value Reference Range Interpretation Comments Eosinophils (%) (Auto) (test code = 713-8) 2.4 0.0-6.0 [facility] CampusBasophils (%) (Auto)2019-07-03 06:36:00* Test Item Value Reference Range Interpretation Comments Basophils (%) (Auto) (test code = 706-2) 0.5 0.0-1.0 [facility] CampusIM GRANULOCYTES %2019-07-03 06:36:00* Test Item Value Reference Range Interpretation Comments IM GRANULOCYTES % (test code = IM GRANULOCYTES %) 0.9 0.0- 1.0 [facility] CampusNeutrophils # (Auto)2019-07-03 06:36:00* Test Item Value Reference Range Interpretation Comments Neutrophils # (Auto) (test code = 751-8) 6.3 2.1-6.9 [facility] CampusLymphocytes # (Auto)2019-07-03 06:36:00* Test Item Value Reference Range Interpretation Comments Lymphocytes # (Auto) (test code = 33012-2) 2.7 1.0-3.2 [facility] CampusMonocytes # (Auto)2019-07-03 06:36:00* Test Item Value Reference Range Interpretation Comments Monocytes # (Auto) (test code = 742-7) 0.6 0.2-0.8 [facility] CampusEosinophils # (Auto)2019-07-03 06:36:00* Test Item Value Reference Range Interpretation Comments Eosinophils # (Auto) (test code = 711-2) 0.2 0.0-0.4 [facility] CampusBasophils # (Auto)2019-07-03 06:36:00* Test Item Value Reference Range Interpretation Comments Basophils # (Auto) (test code = 704-7) 0.1 0.0-0.1 [facility] CampusAbsolute Immature Granulocyte (auto 2019-07-03 06:36:00* Test Item Value Reference Range Interpretation Comments Absolute Immature Granulocyte (auto (liz t code = Absolute Immature Granulocyte (auto) 0.09 0-0.1 [facility] CampusClostridium Difficile Toxin A & B 2019-07-02 13:47:00* Test Item Value Reference Range Interpretation Comments Clostridium Difficile Toxin A & B (test code = 104218208) POSI TIVE NEGATIVE H Results called to Shavon Bella at 1346 on 07/02/19 by Daniel Young. RB OK.Results faxed to infection control at 1346 on 07/02/19 by Daniel Young.Testing on stool aspirate specimens is outside director of strategic sales claims since specimen type not valida wander on this assay.[facility] CampusVitamin B12 Level 2019-07-02 07:18:00* Test Item Value Reference Range Interpretation Comments Vitamin B12 Level (test code = 78281-8) 878 213-816 H [facility] CampusFerritin2020-03-04 06:54:00* Test Item Value Reference Range Interpretation Comments Ferritin (test code = 2276-4) 256.41 4.63-204.00 H [facility] CampusIron Cpkdy3697-44-91 06:42:00* Test Item Value Reference Range Interpretation Comments Iron Level (test code = 2498-4) 31 50-170 L [facility] CampusTransferrin2020-03-04 06:42:00* Test Item Value Reference Range Interpretation Comments Transferrin (test code = 3034-6) < 70 180-382 L [facility] CampusPercent Reticulocyte Awrwq4024-00-77 06:19:00* Test Item Value Reference Range Interpretation Comments Percent Reticulocyte Count (test code = 59950-7) 1.5 0.8-2 .2 [facility] CampusUrine Oxmabaexoy6422-00-67 03:14:00* Test Item Value Reference Range Interpretation Comments Urine Creatinine (test code = 2161-8) 39.91 47-110 L [facility] CampusUrine Protein/Creatinine Bbgla7657-23-43 03:14:00* Test Item Value Reference Range Interpretation Comments Urine Protein/Creatinine Ratio (test code = 28098-7) 0.00 [facility] CampusUrine Random Total Ykxutwe4409-21-01 02:41:00* Test Item Value Reference Range Interpretation Comments Urine Random Total Protein (test code = 2888-6) 15.0 1-14 H [facility] CampusUrine [id number] 02:23:00* Test Item Value Reference Range Interpretation Comments Urine WBC (test code = 5821-4) >50 0-5 H [facility] CampusUrine [id number] 02:23:00* Test Item Value Reference Range Interpretation Comments Urine RBC (test code = 47791-7) 6-10 0-5 H [facility] CampusUrine Yugkdzxx5848-55-80 02:23:00* Test Item Value Reference Range Interpretation Comments Urine Bacteria (test code = 87286-5) MANY NONE H [facility] CampusUrine Epithelial Wvdrw0640-70-69 02:23:00 * Test Item Value Reference Range Interpretation Comments Urine Epithelial Cells (test code = 86347-3) FEW NONE [facility] CampusUrine Zncgw1734-15-59 02:15:00* Test Item Value Reference Range Interpretation Comments Urine Color (test code = 5778-6) YELLOW YELLOW [facility] CampusUrine Riirlgf3942-88-62 02:15:00* Test Item Value Reference Range Interpretation Comments Urine Clarity (test code = 23750-8) CLOUDY CLEAR H [facility] CampusUrine Specific Vcsxhsd6114-26-88 02:15:00 * Test Item Value Reference Range Interpretation Comments Urine Specific [place] (test code = 5811-5) 1.020 1.010-1.02 5 [facility] CampusUrine [id number] 02:15:00* Test Item Value Reference Range Interpretation Comments Urine pH (test code = 71703-6) 5 5-7 [facility] Leukocyte Pygdhlxv2878-62-81 02:15:00* Test Item Value Reference Range Interpretation Comments Urine Leukocyte Esterase (test code = 5799-2) 2+ NEGATIVE [facility] Swvhdpj3566-12-92 02:15:00* Test Item Value Reference Range Interpretation Comments Urine Nitrite (test code = 09872-0) POSITIVE NEGATIVE [facility] Zcdtsyg5236-66-53 02:15:00* Test Item Value Reference Range Interpretation Comments Urine Protein (test code = 5804-0) TRACE NEGATIVE [facility] Glucose (UA)2019-07-02 02:15:00* Test Item Value Reference Range Interpretation Comments Urine Glucose (UA) (test code = 2349-9) NEGATIVE NEGATIVE [facility] Jsmrfxx1329-74-65 02:15:00* Test Item Value Reference Range Interpretation Comments Urine Ketones (test code = 59399-6) NEGATIVE NEGATIVE [facility] Vkjpymweiiyq5573-82-95 02:15:00* Test Item Value Reference Range Interpretation Comments Urine Urobilinogen (test code = 39069-4) 0.2 0.2-1 [facility] Pyjkdaatr2520-19-32 02:15:00* Test Item Value Reference Range Interpretation Comments Urine Bilirubin (test code = 1977-6) NEGATIVE NEGATIVE [facility] Hwtvh0728-63-40 02:15:00* Test Item Value Reference Range Interpretation Comments Urine Blood (test code = 55411-5) NEGATIVE NEGATIVE [facility] CampusTotal Sprkskfay4301-48-68 08:26:00* Test Item Value Reference Range Interpretation Comments Total Bilirubin (test code = 1975-2) 0.2 0.2-1.2 [facility] CampusAspartate Amino Transf (AST/SGOT) 2019-07-01 08:26:00* Test Item Value Reference Range Interpretation Comments Aspartate Amino Transf (AST/SGOT) (test code = Aspartate Amino Transf (AST/SGOT)) 11 5-34 [facility] CampusAlanine Aminotransferase (ALT/SGPT) 2019-07-01 08:26:00* Test Item Value Reference Range Interpretation Comments Alanine Aminotransferase (ALT/SGPT) (test code = 1742-6) < 6 0-55 [facility] CampusTotal Fhcoaet7051-91-34 08:26:00* Test Item Value Reference Range Interpretation Comments Total Protein (test code = 2885-2) 4.4 6.5-8.1 L [facility] CampusAlbumin2020-03-03 08:26:00* Test Item Value Reference Range Interpretation Comments Albumin (test code = 1751-7) 1.6 3.5-5.0 L [facility] CampusGlobulin2020-03-03 08:26:00* Test Item Value Reference Range Interpretation Comments Globulin (test code = 97575-0) 2.8 2.3-3.5 [facility] CampusAlbumin/Globulin Bkubw0247-43-82 08:26:00 * Test Item Value Reference Range Interpretation Comments Albumin/Globulin Ratio (test code = 1759-0) 0.6 0.8-2.0 L [facility] CampusAlkaline Wdikngpwwzy2336-28-91 08:26:00* Test Item Value Reference Range Interpretation Comments Alkaline Phosphatase (test code = 6768-6) 81 40-150 [facility] CampusLipase2020-03-02 18:25:00* Test Item Value Reference Range Interpretation Comments Lipase (test code = 3040-3) 9 8-78 [facility] CampusCT ABDOMEN/PELVIS [id number] 16:25:00 [facility] [address] [address] Patient Name: IQRA MATTHEW MR #: [id number] : 1950 Age/Sex: 68/F Req #: [id number] Adm Physician: Ordered by: JASON WATSON DO Report #: [id number] Location: ER Room/Bed: Procedure: [id number] CT/C T ABDOMEN/PELVIS WO Exam Date: 06/30/19 Exam Time: 1 600 REPORT STATUS: Signed CT of the abdomen and pelvis History: Diarrhea Comparison: 06/19/2019 Technique: Multidetector CT scanning of the abdomen and pelvis was performed from the lev el of the lung bases to the inferior pubic ramus without contrast. DOSE RED UCTION: The examination was performed according to departmental dose-optimizat ion program which includes automated exposure control, adjustment of the mA an d/or kV according to patient size and/or use of iterative reconstruction techn ique. Discussion: There is minimal dependent atelectasis. Lack of IV contrast limits evaluation of solid and hollow visceral organs. No focal hepatic les ions are identified. The gallbladder is surgically absent. There is no intrahe patic or extrahepatic biliary dilatation. The spleen is within normal limit s of size. The bilateral adrenal glands are unremarkable. There is fat ty atrophy of the pancreas. No pancreatic ductal dilatation or peripancreatic inflammatory stranding. The tunica-biloxi kidneys are atrophic. There is a small r ight renal cyst which measures 11 mm in diameter. A trace right kidney is iden tified in the left iliac fossa. There is no hydroureteronephrosis or renal yvette culi identified. The stomach, small, and large bowel are nondistended. Ther e is no evidence of obstruction. There is diffuse wall thickening of the entir e colon which is similar to examination performed 06/27/2019. There are no sign s of appendicitis.. There is no free intraperitoneal air or ascites. No abnormal abdominal fluid collections are identified. The abdominal aorta is of normal course and caliber and demonstrates extensive atherosclerotic yvette cifications. The urinary bladder is within normal limits. There are no acute osseous abnormalities. Multilevel degenerative changes of the thoracolu mbar spine are present. IMPRESSION: Grossly unchanged diffuse concentr ic wall thickening of the colon compatible with infectious or inflammatory downing colitis. No evidence of perforation. Signed by: Daniel Mulligan MD on 06/29 4:34 PM Dictated By: DANIEL MULLIGAN MD 1631 Transcribed By: ALEKS on 06/30/19 1634 COPY TO: JASON WATSON DO CT ABDOMEN/PELVIS [id number] 00:41:[address] [address] Patient Name: IQRA MATTHEW MR #: [id number] : 1950 Age/Sex: 68/F Req #: [id number] Adm Physician: Ordered by: SOPHIE DICKEY DO Report #: [id number] Location: ER Room/Bed: Procedure: [id number] CT/CT ABDOMEN/PELVIS W Exam Date: Exam Time: REPORT STATUS: Signed EXAMINATION: CT of the abdomen and pelvis with contrast. TECHNIQUE: Spiral CT images of the abdomen and pelvis were performed from the lung bases to the lesser troch anters after the intravenous administration of 100 cc of Isovue 370. Coronal a nd sagittal reformatted images were obtained. COMPARISON: None. CLIN[facility] HISTORY:Abdominal pain. History of renal transplant. DISCUSSION: ABDOMEN/PELVIS: LOWER THORAX:3 mm solid nodule in the lateral segment of the right lower lobe (series 2 image 4). Lung bases are otherwise unremarkab le. HEPATOBILIARY: No focal hepatic lesions. No intra-or extrahepatic bili zulema ductal dilation. Gallbladder has been removed. SPLEEN: No splenomeg juan or focal splenic lesion. PANCREAS: No focal masses or ductal dilatation . ADRENALS: No adrenal nodules. KIDNEYS/URETERS: Atrophic tunica-biloxi kidn eys. Small cyst of the tunica-biloxi right kidney. Left lower quadrant transplant kid true with lobulated contour which may be congenital or postinflammatory. 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 End to side arterial anastomosis with the external iliac artery. End to side v enous anastomosis with the left external iliac vein. PELVIC ORGANS/BLADDE R: Transplant ureteral anastomosis along the left lateral surface of the bladd er which is otherwise unremarkable. Atrophic uterus appropriate for age. No ad nexal mass. PERITONEUM/RETROPERITONEUM: No ascites or pneumoperitoneum. LYMPH NODES: No pelvic sidewall, retroperitoneal, or mesenteric lymphadenopa thy. VESSELS: Extensive atherosclerotic calcification of the abdominal aort a, major branch vessels, and iliac arterial systems without aneurysmal dilatat ion. GI TRACT: There is diffuse concentric wall thickening and mucosal enha ncement of the colon, with the most significant changes in the rectum and a se nding colon. Normal appendix. Small sliding hiatal hernia. No small bowel dila tation to suggest obstruction. BONES AND SOFT TISSUE: Osteopenia without acute osseous abnormality. Multilevel degenerative disc changes and facet arth ropathy of the lumbar spine. Diffuse muscular atrophy. IMPRESSION: Findings compatible with infectious or inflammatory pancolitis, without domenica perforation or drainable fluid collection. Atrophic tunica-biloxi kidneys with le ft lower quadrant transplant kidney as detailed above. Atherosclerotic va scular disease. 3 mm nodule in the lateral segment of the right lower lobe may be assessed for stability by CT scan of the chest without contrast in one year. Signed by: Dr. Ryan Handy M.D. on 06/27/2019 12:55 AM Dicta wander By: RYAN HANDY MD Transcribed By: ALEKS on 06/27/1954 COPY TO: SOPHIE DICKEY DO Creatine Kinase [id number] 22:39:00* Test Item Value Reference Range Interpretation Comments Creatine Kinase MB (test code = 33390-3) 0.40 0-5.0 [place] 14768020-02-27 22:39:00* Test Item Value Reference Range Interpretation Comments Troponin I (test code = UHI3930) < 0.001 0-0.300 [facility] CampusCreatine Kinase [id number] 22:39:00* Test Item Value Reference Range Interpretation Comments Creatine Kinase MB (test code = 64628-6) 0.40 0-5.0 [place] [id number] 22:39:00* Test Item Value Reference Range Interpretation Comments Troponin I (test code = YXT1787) < 0.001 0-0.300 [facility] Sfjyz9052-43-26 22:24:00* Test Item Value Reference Range Interpretation Comments Sodium Level (test code = 2951-2) 137 136-145 [facility] CampusPotassium Digye8570-39-82 22:24:00* Test Item Value Reference Range Interpretation Comments Potassium Level (test code = 2823-3) 5.0 3.5-5.1 [facility] CampusChloride Rlkja1411-52-69 22:24:00* Test Item Value Reference Range Interpretation Comments Chloride Level (test code = 2075-0) 110 98-107 H [facility] CampusCarbon Dioxide Vyupq3585-09-84 22:24:00* Test Item Value Reference Range Interpretation Comments Carbon Dioxide Level (test code = 2028-9) 22 - [facility] CampusAnion Zjv6026-20-36 22:24:00* Test Item Value Reference Range Interpretation Comments Anion Gap (test code = 65655-9) 10.0 8-16 [facility] CampusBlood Urea Oxfhgqld6616-77-00 22:24:00* Test Item Value Reference Range Interpretation Comments Blood Urea Nitrogen (test code = 3094-0) 24 7- [facility] CampusCreatinine2020-02-27 22:24:00* Test Item Value Reference Range Interpretation Comments Creatinine (test code = 2160-0) 1.43 0.57-1.11 H [facility] CampusBUN/Creatinine Vkpzz9850-10-71 22:24:00* Test Item Value Reference Range Interpretation Comments BUN/Creatinine Ratio (test code = 3097-3) 17 - [facility] CampusEstimat Glomerular Filtration Rate 2019-06-26 22:24:00* Test Item Value Reference Range Interpretation Comments Estimat Glomerular Filtration Rate (test code = 836259994) 36 >60 L Ranges were taken from the National Kidney Disease Education Program and the [facility] Foundation literature.Reference ranges:60 or greater: Kwnrgg88-19 ( for 3 consecutive months): Chronic kidney disease 15 or less: Kidney failureThe Hospitals of Providence [facility] CampusGlucose Qgyll9741-46-82 22:24:00* Test Item Value Reference Range Interpretation Comments Glucose Level (test code = CNY3747) 126 74-118 H [facility] CampusCalcium Wzssq2464-45-60 22:24:00* Test Item Value Reference Range Interpretation Comments Calcium Level (test code = 91725-5) 8.0 8.4-10.2 L [facility] CampusTotal Kpgvlhdtx5029-58-67 22:24:00* Test Item Value Reference Range Interpretation Comments Total Bilirubin (test code = 1975-2) 0.3 0.2-1.2 [facility] CampusAspartate Amino Transf (AST/SGOT) 2019-06-26 22:24:00* Test Item Value Reference Range Interpretation Comments Aspartate Amino Transf (AST/SGOT) (test code = Aspartate Amino Transf (AST/SGOT)) 10 5-34 [facility] CampusAlanine Aminotransferase (ALT/SGPT) 2019-06-26 22:24:00* Test Item Value Reference Range Interpretation Comments Alanine Aminotransferase (ALT/SGPT) (test code = 1742-6) < 6 0-55 [facility] CampusTotal Xjhuvfj7469-20-40 22:24:00* Test Item Value Reference Range Interpretation Comments Total Protein (test code = 2885-2) 5.8 6.5-8.1 L [facility] CampusAlbumin2020-02-27 22:24:00* Test Item Value Reference Range Interpretation Comments Albumin (test code = 1751-7) 2.1 3.5-5.0 L [facility] CampusGlobulin2020-02-27 22:24:00* Test Item Value Reference Range Interpretation Comments Globulin (test code = 40782-9) 3.7 2.3-3.5 H [facility] CampusAlbumin/Globulin Esyyk8154-34-89 22:24:00 * Test Item Value Reference Range Interpretation Comments Albumin/Globulin Ratio (test code = 1759-0) 0.6 0.8-2.0 L [facility] CampusAlkaline Drbltcdigms7124-04-47 22:24:00* Test Item Value Reference Range Interpretation Comments Alkaline Phosphatase (test code = 6768-6) 101 40-150 [facility] CampusCreatine Xwoqcm0412-18-65 22:24:00* Test Item Value Reference Range Interpretation Comments Creatine Kinase (test code = 2157-6) 11 29-168 L [facility] CampusLipase2020-02-27 22:24:00* Test Item Value Reference Range Interpretation Comments Lipase (test code = 3040-3) 5 8-78 L [facility] CampusCreatine Rofgqf2945-05-99 22:24:00* Test Item Value Reference Range Interpretation Comments Creatine Kinase (test code = 2157-6) 11 29-168 L [facility] CampusWhite Blood Vqwml4095-49-10 22:12:00* Test Item Value Reference Range Interpretation Comments White Blood Count (test code = 6690-2) 9.12 4.8-10.8 [facility] CampusRed Blood Uuvgb7230-36-63 22:12:00* Test Item Value Reference Range Interpretation Comments Red Blood Count (test code = 789-8) 3.60 3.6-5.1 [facility] CampusHemoglobin2020-02-27 22:12:00* Test Item Value Reference Range Interpretation Comments Hemoglobin (test code = 78649-1) 10.2 12.0-16.0 L [facility] CampusHematocrit2020-02-27 22:12:00* Test Item Value Reference Range Interpretation Comments Hematocrit (test code = 4544-3) 34.0 34.2-44.1 L [facility] CampusMean Corpuscular Rprguh6220-41-10 22:12:00* Test Item Value Reference Range Interpretation Comments Mean Corpuscular Volume (test code = 787-2) 94.4 81-99 [facility] CampusMean Corpuscular Mggmsntnbp2791-29-35 22:12:00* Test Item Value Reference Range Interpretation Comments Mean Corpuscular Hemoglobin (test code = 785-6) 28.3 28-32 [facility] CampusMean Corpuscular Hemoglobin Concent 2019-06-26 22:12:00* Test Item Value Reference Range Interpretation Comments Mean Corpuscular Hemoglobin Concent (test code = 786-4) 30.0 31-35 L [facility] CampusRed Cell Distribution Cqorw6430-37-36 22:12:00* Test Item Value Reference Range Interpretation Comments Red Cell Distribution Width (test code = 63824-4) 15.4 11.7 -14.4 H [facility] CampusPlatelet Dartf1562-28-11 22:12:00* Test Item Value Reference Range Interpretation Comments Platelet Count (test code = 777-3) 375 140-360 H [facility] CampusNeutrophils (%) (Auto)2019-06-26 22:12:00 * Test Item Value Reference Range Interpretation Comments Neutrophils (%) (Auto) (test code = 39528-8) 67.2 38.7-80.0 [facility] CampusLymphocytes (%) (Auto)2019-06-26 22:12:00 * Test Item Value Reference Range Interpretation Comments Lymphocytes (%) (Auto) (test code = 736-9) 24.8 18.0-39.1 [facility] CampusMonocytes (%) (Auto)2019-06-26 22:12:00* Test Item Value Reference Range Interpretation Comments Monocytes (%) (Auto) (test code = 5905-5) 5.3 4.4-11.3 [facility] CampusEosinophils (%) (Auto)2019-06-26 22:12:00 * Test Item Value Reference Range Interpretation Comments Eosinophils (%) (Auto) (test code = 713-8) 2.0 0.0-6.0 [facility] CampusBasophils (%) (Auto)2019-06-26 22:12:00* Test Item Value Reference Range Interpretation Comments Basophils (%) (Auto) (test code = 706-2) 0.4 0.0-1.0 [facility] CampusIM GRANULOCYTES %2019-06-26 22:12:00* Test Item Value Reference Range Interpretation Comments IM GRANULOCYTES % (test code = IM GRANULOCYTES %) 0.3 0.0- 1.0 [facility] CampusNeutrophils # (Auto)2019-06-26 22:12:00* Test Item Value Reference Range Interpretation Comments Neutrophils # (Auto) (test code = 751-8) 6.1 2.1-6.9 [facility] CampusLymphocytes # (Auto)2019-06-26 22:12:00* Test Item Value Reference Range Interpretation Comments Lymphocytes # (Auto) (test code = 83125-0) 2.3 1.0-3.2 [facility] CampusMonocytes # (Auto)2019-06-26 22:12:00* Test Item Value Reference Range Interpretation Comments Monocytes # (Auto) (test code = 742-7) 0.5 0.2-0.8 [facility] CampusEosinophils # (Auto)2019-06-26 22:12:00* Test Item Value Reference Range Interpretation Comments Eosinophils # (Auto) (test code = 711-2) 0.2 0.0-0.4 [facility] CampusBasophils # (Auto)2019-06-26 22:12:00* Test Item Value Reference Range Interpretation Comments Basophils # (Auto) (test code = 704-7) 0.0 0.0-0.1 [facility] CampusAbsolute Immature Granulocyte (auto 2019-06-26 22:12:00* Test Item Value Reference Range Interpretation Comments Absolute Immature Granulocyte (auto (liz t code = Absolute Immature Granulocyte (auto) 0.03 0-0.1 [facility] CampusGLUBED2019-12-31 12:25:00* Test Item Value Reference Range Interpretation Comments GLUBED (test code = GLUBED) 160 MG/DL 70-110 H Performed by certified single needle operator at [facility] GXKFCO8493-91-00 08:51:00* Test Item Value Reference Range Interpretation Comments GLUBED (test code = GLUBED) 138 MG/DL 70-110 H Performed by certified single needle operator at [facility] CBC W/AUTO KNHY0045-69-06 07:45:00* Test Item Value Reference Range Interpretation Comments WHITE BLOOD CELL (test code = WBC) 7.42 x10 3/uL 4.5-11.0 N RED BLOOD CELL (test code = RBC) 2.97 x10 6/uL 3.54-5.02 L HEMOGLOBIN (test code = HGB) 8.2 g/dL 11.0-15.0 L HEMATOCRIT (test code = HCT) 26.9 % 33.0-45.0 L MEAN CELL VOLUME (test code = MCV) 90.6 fL 81.0-99.0 MEAN CELL HGB (test code = MCH) 27.6 pg 27.0-33.0 N MEAN CELL HGB CONCETRATION (test code = MCHC) 30.5 g/dL 33.0-37. 0 L RED CELL DISTRIBUTION WIDTH CV (test code = RDW) 15.2 % 11.5- 14.5 H RED CELL DISTRIBUTION WIDTH SD (test code = RDW-SD) 50.6 fL 37 .0-54.0 N PLATELET COUNT (test code = PLT) 318 x10 3/uL 150-400 N MEAN PLATELET VOLUME (test code = MPV) 9.7 fL 7.0-9.0 H NEUTROPHIL % (test code = NT%) 80.4 % 56.0-77.0 H IMMATURE GRANULOCYTE % (test code = IG%) 0.7 % 0.0-2.0 N LYMPHOCYTE % (test code = LY%) 11.3 % 14.0-32.0 L MONOCYTE % (test code = MO%) 7.0 % 4.8-9.0 N EOSINOPHIL % (test code = EO%) 0.5 % 0.3-3.7 N BASOPHIL % (test code = BA%) 0.1 % 0.0-2.0 N NUCLEATED RBC % (test code = NRBC%) 0.0 % 0-0 N NEUTROPHIL # (test code = NT#) 5.96 x10 3/uL 2.0-7.6 N IMMATURE GRANULOCYTE # (test code = IG#) 0.05 x10 3/uL 0.00-0.03 H LYMPHOCYTE # (test code = LY#) 0.84 x10 3/uL 1.0-3.8 L MONOCYTE # (test code = MO#) 0.52 x10 3/uL 0.1-0.8 N EOSINOPHIL # (test code = EO#) 0.04 x10 3/uL 0.0-0.2 N BASOPHIL # (test code = BA#) 0.01 x10 3/uL 0.0-0.2 N NUCLEATED RBC # (test code = NRBC#) 0.00 x10 3/uL 0.0-0.1 N MANUAL DIFF REQUIRED (test code = MDIFF) NO BASIC METABOLIC [id number] 05:41:00* Test Item Value Reference Range Interpretation Comments SODIUM (test code = NA) 132 mEq/L 134-147 L POTASSIUM (test code = K) 4.8 mEq/L 3.4-5.0 N CHLORIDE (test code = CL) 108 mEq/L 100-108 N CARBON DIOXIDE (test code = CO2) 16 mEq/L 21-33 L ANION GAP (test code = GAP) 13 0-20 N GLUCOSE (test code = GLU) 174 mg/dL 70-110 H BLOOD UREA NITROGEN (test code = BUN) 43 mg/dL 7-18 H GLOMERULAR FILTRATION RATE (test code = GFR) 40.7 80-90 L Units of measure = ml/min/1.73 m2 CREATININE (test code = CREAT) 1.3 mg/dL 0.6-1.3 N CALCIUM (test code = CA) 7.5 mg/dL 8.0-10.5 L PYKOMRXWYGI7262-01-34 05:41:00* Test Item Value Reference Range Interpretation Comments PHOSPHOROUS (test code = PHOS) 2.8 MG/DL 2.5-4.9 N EVDYMGZWA4143-24-12 05:41:00* Test Item Value Reference Range Interpretation Comments MAGNESIUM (test code = MAG) 1.80 mg/dL 1.8-2.4 N QXRZEY1055-75-11 05:19:00* Test Item Value Reference Range Interpretation Comments GLUBED (test code = GLUBED) 138 MG/DL 70-110 H Performed by certified single needle operator at [facility] TLXAZQ9254-31-19 18:03:00* Test Item Value Reference Range Interpretation Comments GLUBED (test code = GLUBED) 161 MG/DL 70-110 H Performed by certified single needle operator at [facility] MKTIYB3186-23-50 10:36:00* Test Item Value Reference Range Interpretation Comments GLUBED (test code = GLUBED) 96 MG/DL 70-110 N Performed by certified single needle operator at [facility] CBC W/AUTO TPXK6861-36-05 08:46:00* Test Item Value Reference Range Interpretation Comments WHITE BLOOD CELL (test code = WBC) 10.16 x10 3/uL 4.5-11.0 N RED BLOOD CELL (test code = RBC) 3.27 x10 6/uL 3.54-5.02 L HEMOGLOBIN (test code = HGB) 9.3 g/dL 11.0-15.0 L HEMATOCRIT (test code = HCT) 30.9 % 33.0-45.0 L MEAN CELL VOLUME (test code = MCV) 94.5 fL 81.0-99.0 MEAN CELL HGB (test code = MCH) 28.4 pg 27.0-33.0 N MEAN CELL HGB CONCETRATION (test code = MCHC) 30.1 g/dL 33.0-37. 0 L RED CELL DISTRIBUTION WIDTH CV (test code = RDW) 15.3 % 11.5- 14.5 H RED CELL DISTRIBUTION WIDTH SD (test code = RDW-SD) 53.0 fL 37 .0-54.0 N PLATELET COUNT (test code = PLT) 303 x10 3/uL 150-400 N MEAN PLATELET VOLUME (test code = MPV) 10.0 fL 7.0-9.0 H NEUTROPHIL % (test code = NT%) 72.1 % 56.0-77.0 N IMMATURE GRANULOCYTE % (test code = IG%) 0.7 % 0.0-2.0 N LYMPHOCYTE % (test code = LY%) 17.0 % 14.0-32.0 N MONOCYTE % (test code = MO%) 8.0 % 4.8-9.0 N EOSINOPHIL % (test code = EO%) 1.9 % 0.3-3.7 N BASOPHIL % (test code = BA%) 0.3 % 0.0-2.0 N NUCLEATED RBC % (test code = NRBC%) 0.0 % 0-0 N NEUTROPHIL # (test code = NT#) 7.33 x10 3/uL 2.0-7.6 N IMMATURE GRANULOCYTE # (test code = IG#) 0.07 x10 3/uL 0.00-0.03 H LYMPHOCYTE # (test code = LY#) 1.73 x10 3/uL 1.0-3.8 N MONOCYTE # (test code = MO#) 0.81 x10 3/uL 0.1-0.8 H EOSINOPHIL # (test code = EO#) 0.19 x10 3/uL 0.0-0.2 N BASOPHIL # (test code = BA#) 0.03 x10 3/uL 0.0-0.2 N NUCLEATED RBC # (test code = NRBC#) 0.00 x10 3/uL 0.0-0.1 N MANUAL DIFF REQUIRED (test code = MDIFF) NO BASIC METABOLIC [id number] 08:19:00* Test Item Value Reference Range Interpretation Comments SODIUM (test code = NA) 132 mEq/L 134-147 L POTASSIUM (test code = K) 4.7 mEq/L 3.4-5.0 N CHLORIDE (test code = CL) 111 mEq/L 100-108 H CARBON DIOXIDE (test code = CO2) 13 mEq/L 21-33 L ANION GAP (test code = GAP) 13 0-20 N GLUCOSE (test code = GLU) 105 mg/dL 70-110 N BLOOD UREA NITROGEN (test code = BUN) 47 mg/dL 7-18 H GLOMERULAR FILTRATION RATE (test code = GFR) 40.7 80-90 L Units of measure = ml/min/1.73 m2 CREATININE (test code = CREAT) 1.3 mg/dL 0.6-1.3 N CALCIUM (test code = CA) 8.1 mg/dL 8.0-10.5 N [id number] 08:19:00* Test Item Value Reference Range Interpretation Comments PHOSPHOROUS (test code = PHOS) 2.6 MG/DL 2.5-4.9 N [id number] 08:19:00* Test Item Value Reference Range Interpretation Comments MAGNESIUM (test code = MAG) 1.80 mg/dL 1.8-2.4 N [id number] 07:31:00* Test Item Value Reference Range Interpretation Comments GLUBED (test code = GLUBED) 134 MG/DL 70-110 H Performed by certified single needle operator at [facility] [id number] 07:31:00* Test Item Value Reference Range Interpretation Comments GLUBED (test code = GLUBED) 124 MG/DL 70-110 H Performed by certified single needle operator at [facility] TOTAL IRON BINDING [id number] 16:14:00* Test Item Value Reference Range Interpretation Comments SERUM IRON (test code = IRON) 22 mcg/dL 35-150 L TOTAL IRON BINDING CAPACITY (test code = TIBC) 91 mcg/dL 260-445 L UIBC (test code = UIBC) 69 mcg/dL IRON SATURATION (test code = FESAT) 24.2 % 14-34 N VITAMIN [id number] 16:14:00* Test Item Value Reference Range Interpretation Comments VITAMIN B12 (test code = VITB12) 988 pg/mL 193-986 H [id number] 16:14:00* Test Item Value Reference Range Interpretation Comments FERRITIN (test code = JASIEL) 202.9 ng/mL 11.0-306.8 N VITAMIN D [id number] 16:14:00* Test Item Value Reference Range Interpretation Comments VITAMIN D 25-HYDROXY (test code = VITD25) 18.5 ng/mL 30-100 L SPECIMEN 1+ HEMOLYZED.Results known to be adversely affected by hemolysis are: Potassium Magnesium LDH Phosphorus TOTAL IRON BINDING [id number] 16:12:00* Test Item Value Reference Range Interpretation Comments SERUM IRON (test code = IRON) 22 mcg/dL 35-150 L TOTAL IRON BINDING CAPACITY (test code = TIBC) 91 mcg/dL 260-445 L UIBC (test code = UIBC) 69 mcg/dL IRON SATURATION (test code = FESAT) 24.2 % 14-34 N VITAMIN [id number] 16:12:00* Test Item Value Reference Range Interpretation Comments VITAMIN B12 (test code = VITB12) 988 pg/mL 193-986 H [id number] 16:12:00* Test Item Value Reference Range Interpretation Comments FERRITIN (test code = JASIEL) 202.9 ng/mL 11.0-306.8 N VITAMIN D 96-[id number] 16:12:00* Test Item Value Reference Range Interpretation Comments VITAMIN D 25-HYDROXY (test code = VITD25) ng/mL 30-100 [id number] 14:10:00* Test Item Value Reference Range Interpretation Comments GLUBED (test code = GLUBED) 101 MG/DL 70-110 N Performed by certified single needle operator at [facility] BASIC METABOLIC [id number] 11:00:00* Test Item Value Reference Range Interpretation Comments SODIUM (test code = NA) 134 mEq/L 134-147 N POTASSIUM (test code = K) 4.6 mEq/L 3.4-5.0 N CHLORIDE (test code = CL) 108 mEq/L 100-108 N CARBON DIOXIDE (test code = CO2) 20 mEq/L 21-33 L ANION GAP (test code = GAP) 11 0-20 N GLUCOSE (test code = GLU) 96 mg/dL 70-110 N BLOOD UREA NITROGEN (test code = BUN) 53 mg/dL 7-18 H GLOMERULAR FILTRATION RATE (test code = GFR) 34.5 80-90 L Units of measure = ml/min/1.73 m2 CREATININE (test code = CREAT) 1.5 mg/dL 0.6-1.3 H CALCIUM (test code = CA) 7.2 mg/dL 8.0-10.5 L BASIC METABOLIC [id number] 10:57:00* Test Item Value Reference Range Interpretation Comments SODIUM (test code = NA) 134 mEq/L 134-147 N POTASSIUM (test code = K) 4.6 mEq/L 3.4-5.0 N CHLORIDE (test code = CL) 108 mEq/L 100-108 N CARBON DIOXIDE (test code = CO2) 20 mEq/L 21-33 L ANION GAP (test code = GAP) 11 0-20 N GLUCOSE (test code = GLU) 96 mg/dL 70-110 N BLOOD UREA NITROGEN (test code = BUN) 53 mg/dL 7-18 H GLOMERULAR FILTRATION RATE (test code = GFR) 80-90 CREATININE (test code = CREAT) mg/dL 0.6-1.3 CALCIUM (test code = CA) 7.2 mg/dL 8.0-10.5 L LACTIC ACID [id number] 10:46:00* Test Item Value Reference Range Interpretation Comments LACTIC ACID POC (test code = LACTP) 1.6 MMOL/L 0.90-1.70 N Performed by certified single needle operator at [facility] CHEMISTRY 8 [id number] 10:46:00* Test Item Value Reference Range Interpretation Comments ISTAT-SODIUM (test code = NAP) MMOL/L 134-147 ISTAT-POTASSIUM (test code = KP) MMOL/L 3.4-5.0 ISTAT-CHLORIDE (test code = CLP) MMOL/L 100-108 ISTAT CARBON DIOXIDE (test code = ISTAT-CO2) mmol/L 21-33 L ISTAT CALCIUM IONIZED (test code = ISTAT-IQRA) MG/DL 1.12-1.3 2 ISTAT-GLUCOSE (test code = GLUP) MG/DL 70-110 H ISTAT-BUN (test code = BUNP) MG/DL 7-18 H BEDSIDE CREATININE (test code = CREATBED) MG/DL 0.6-1.3 H GLOMERULAR FILTRATION RATE POC (test code = GFRBED) 25 ML/MIN CHEMISTRY 8 [id number] 10:46:00* Test Item Value Reference Range Interpretation Comments ISTAT-SODIUM (test code = NAP) 124 MMOL/L 134-147 L ISTAT-POTASSIUM (test code = KP) 5.0 MMOL/L 3.4-5.0 N ISTAT-CHLORIDE (test code = CLP) 95 MMOL/L 100-108 L Performed by certified single needle operator at [facility] ISTAT CARBON DIOXIDE (test code = ISTAT-CO2) 20.0 mmol/L 21-33 L ISTAT CALCIUM IONIZED (test code = ISTAT-IQRA) 1.09 MG/DL 1.12-1.3 2 L ISTAT-GLUCOSE (test code = GLUP) 180 MG/DL 70-110 H ISTAT-BUN (test code = BUNP) 54 MG/DL 7-18 H BEDSIDE CREATININE (test code = CREATBED) 2.1 MG/DL 0.6-1.3 H GLOMERULAR FILTRATION RATE POC (test code = GFRBED) 25 ML/MIN CBC W/AUTO [id number] 10:40:00* Test Item Value Reference Range Interpretation Comments WHITE BLOOD CELL (test code = WBC) 14.51 x10 3/uL 4.5-11.0 H RED BLOOD CELL (test code = RBC) 2.77 x10 6/uL 3.54-5.02 L HEMOGLOBIN (test code = HGB) 7.9 g/dL 11.0-15.0 L HEMATOCRIT (test code = HCT) 25.1 % 33.0-45.0 L MEAN CELL VOLUME (test code = MCV) 90.6 fL 81.0-99.0 N MEAN CELL HGB (test code = MCH) 28.5 pg 27.0-33.0 N MEAN CELL HGB CONCETRATION (test code = MCHC) 31.5 g/dL 33.0-37. 0 L RED CELL DISTRIBUTION WIDTH CV (test code = RDW) 15.0 % 11.5- 14.5 H RED CELL DISTRIBUTION WIDTH SD (test code = RDW-SD) 50.2 fL 37 .0-54.0 N PLATELET COUNT (test code = PLT) 278 x10 3/uL 150-400 N MEAN PLATELET VOLUME (test code = MPV) 9.7 fL 7.0-9.0 H NEUTROPHIL % (test code = NT%) 84.6 % 56.0-77.0 H IMMATURE GRANULOCYTE % (test code = IG%) 0.8 % 0.0-2.0 N LYMPHOCYTE % (test code = LY%) 6.5 % 14.0-32.0 L MONOCYTE % (test code = MO%) 7.1 % 4.8-9.0 N EOSINOPHIL % (test code = EO%) 0.7 % 0.3-3.7 N BASOPHIL % (test code = BA%) 0.3 % 0.0-2.0 N NUCLEATED RBC % (test code = NRBC%) 0.0 % 0-0 N NEUTROPHIL # (test code = NT#) 12.27 x10 3/uL 2.0-7.6 H IMMATURE GRANULOCYTE # (test code = IG#) 0.12 x10 3/uL 0.00-0.03 H LYMPHOCYTE # (test code = LY#) 0.95 x10 3/uL 1.0-3.8 L MONOCYTE # (test code = MO#) 1.03 x10 3/uL 0.1-0.8 H EOSINOPHIL # (test code = EO#) 0.10 x10 3/uL 0.0-0.2 N BASOPHIL # (test code = BA#) 0.04 x10 3/uL 0.0-0.2 N NUCLEATED RBC # (test code = NRBC#) 0.00 x10 3/uL 0.0-0.1 N MANUAL DIFF REQUIRED (test code = MDIFF) NO TROPONIN-I [id number] 10:33:00* Test Item Value Reference Range Interpretation Comments TROPONIN-I RAPID (test code = TROPIRAP) 0.00 ng/mL 0.00-0.08 N Performed by certified single needle operator at [facility] Negative: <= 0.08 Positive: >= 0.09An elevated troponin value alone is not sufficient todiagnose a myocardial infarction. Rather, the patient sclinical presentation (history, physical exam) and ECGshould be used in conjunction with troponin in thediagnostic evaluation of suspected myocardial infarction. Aserial sampling protocol is recommended to facilitate the identification of temporal changes in troponin levels characteristic of AR. HEPATIC FUNCTION [id number] 18:25:00* Test Item Value Reference Range Interpretation Comments TOTAL PROTEIN (test code = PROT) 5.3 g/dL 6.4-8.2 L ALBUMIN (test code = ALB) 1.80 g/dL 3.4-5.0 L BILIRUBIN TOTAL (test code = BILT) 0.3 MG/DL <1.5 N BILIRUBIN DIRECT (test code = BILD) < 0.10 MG/DL 0.0-0.30 N BILIRUBIN INDIRECT (test code = BILIND) 0.20 MG/DL SGOT/AST (test code = AST) 8 IUnit/L 15-37 L SGPT/ALT (test code = ALT) < 6 IUnit/L 15-65 L ALKALINE PHOSPHATASE TOTAL (test code = ALKP) 92 IUnit/L 20-125 N [id number] 18:25:00* Test Item Value Reference Range Interpretation Comments LIPASE (test code = LIP) 49 IUnit/L 73-393 L [id number] 18:25:00* Test Item Value Reference Range Interpretation Comments MAGNESIUM (test code = MAG) 1.70 mg/dL 1.8-2.4 L LACTIC ACID [id number] 18:18:00* Test Item Value Reference Range Interpretation Comments LACTIC ACID POC (test code = LACTP) 1.6 MMOL/L 0.90-1.70 N Performed by certified single needle operator at [facility] PROTHROMBIN [id number] 18:18:00* Test Item Value Reference Range Interpretation Comments PROTHROMBIN TIME PATIENT (test code = PTP) 13.7 SECONDS 9.3-12.9 H INTERNATIONAL NORMAL RATIO (test code = INR) 1.3 0.8-1.2 H TARGET INR BY INDICATION Indication INR1. Prophylaxis [...] Infarction (to prevent recurrent infarct). THROMBOPLASTIN TIME [id number] 18:18:00* Test Item Value Reference Range Interpretation Comments THROMBOPLASTIN TIME PARTIAL (test code = PTT) 26.5 Seconds 25.0-39. 5 N Therapeutic Range: 50.4 - 88.3 Seconds Effective 08/13/2018 CHEMISTRY 8 [id number] 18:17:00* Test Item Value Reference Range Interpretation Comments ISTAT-SODIUM (test code = NAP) MMOL/L 134-147 ISTAT-POTASSIUM (test code = KP) MMOL/L 3.4-5.0 ISTAT-CHLORIDE (test code = CLP) MMOL/L 100-108 ISTAT CARBON DIOXIDE (test code = ISTAT-CO2) mmol/L 21-33 L ISTAT CALCIUM IONIZED (test code = ISTAT-IQRA) MG/DL 1.12-1.3 2 ISTAT-GLUCOSE (test code = GLUP) MG/DL 70-110 H ISTAT-BUN (test code = BUNP) MG/DL 7-18 H BEDSIDE CREATININE (test code = CREATBED) MG/DL 0.6-1.3 H GLOMERULAR FILTRATION RATE POC (test code = GFRBED) 25 ML/MIN CHEMISTRY 8 [id number] 18:17:00* Test Item Value Reference Range Interpretation Comments ISTAT-SODIUM (test code = NAP) 124 MMOL/L 134-147 L ISTAT-POTASSIUM (test code = KP) 5.0 MMOL/L 3.4-5.0 N ISTAT-CHLORIDE (test code = CLP) 95 MMOL/L 100-108 L Performed by certified single needle operator at [facility] ISTAT CARBON DIOXIDE (test code = ISTAT-CO2) 20.0 mmol/L 21-33 L ISTAT CALCIUM IONIZED (test code = ISTAT-IQRA) 1.09 MG/DL 1.12-1.3 2 L ISTAT-GLUCOSE (test code = GLUP) 180 MG/DL 70-110 H ISTAT-BUN (test code = BUNP) 54 MG/DL 7-18 H BEDSIDE CREATININE (test code = CREATBED) 2.1 MG/DL 0.6-1.3 H GLOMERULAR FILTRATION RATE POC (test code = GFRBED) 25 ML/MIN TROPONIN-I [id number] 18:16:00* Test Item Value Reference Range Interpretation Comments TROPONIN-I RAPID (test code = TROPIRAP) 0.00 ng/mL 0.00-0.08 N Performed by certified single needle operator at [facility] Negative: <= 0.08 Positive: >= 0.09An elevated troponin value alone is not sufficient todiagnose a myocardial infarction. Rather, the patient sclinical presentation (history, physical exam) and ECGshould be used in conjunction with troponin in thediagnostic evaluation of suspected myocardial infarction. Aserial sampling protocol is recommended to facilitate the identification of temporal changes in troponin levels characteristic of AR. - CT HEAD/BRAIN W/O [id number] 18:12:00 Name: IQRA MATTHEW [facility] : 1950 Age/S: 68 / F [address] [place] [address] Unit #: [id number] Loc: [place] [address] Phys: Forest Bell MD Acct: [id number] Dis Date: Status: REG ER PHONE #: [phone] Exam Date: 04/26/2019 1748 FAX #: [phone] Reason: weakness EXAMS: CPT CODE: [id number] CT HEAD/BRAIN W/O CONT [address] HEAD INDICATION: weakness. TECHNIQUE: Unenhanced [...] 1 Signed Report (CONTINUED) Name: IQRA MATTHEW [facility] B: 1950 Age/S: 68 / F [address] [place] [address] Unit #: [id number] Loc: [place] [address] Phys: Forest Bell MD Acct: [id number] D is Date: Status: REG ER PHONE #: [phone] Exam Date: 04/26/2019 1748 FAX #: Reason: weakness EXAMS: CPT CODE: [id number] CT HEAD/BRAIN W/O CONT 90491 <Continued> changes. I cannot exclude posterior chamber hemorrhage in the left optic globe. 4. There are trace bilateral mastoid air cell effusions. at 1812 Reported and signed by: Jaime Chua D.O. CC: Tori Valdez Technologist:RT Mabel(R) CTDI: DLP: Trnscb Date/Time: 04/26/2019 (1811) t.[email or web address] Orig Print D/T: S: 04/26/2019 (1814) PAGE 2 Signed Report UA RFLX MICR CULT IF [id number] 18:11:00* Test Item Value Reference Range Interpretation Comments UA COLOR (test code = COLU) YELLOW YEL/STRAW UA APPEARANCE (test code = APPU) SL CLOUDY CLEAR UA GLUCOSE DIPSTICK (test code = DGLUU) NEGATIVE NEGATIVE UA BILIRUBIN DIPSTICK (test code = BILU) NEGATIVE NEGATIVE UA KETONE DIPSTICK (test code = KETU) NEGATIVE NEGATIVE UA SPECIFIC GRAVITY (test code = SGU) 1.010 1.005-1.030 N UA BLOOD DIPSTICK (test code = OTONIEL) NEGATIVE NEGATIVE UA PH DIPSTICK (test code = CARLOS) 5.0 5.0-7.0 N UA PROTEIN DIPSTICK (test code = PROU) NEGATIVE NEGATIVE UA UROBILINIOGEN DIPSTICK (test code = URO) 0.2 mg/dL 0.2-1.0 UA NITRITE DIPSTICK (test code = BRENNEN) NEGATIVE NEGATIVE UA LEUKOCYTE ESTERASE DIPSTICK (test code = LEUU) 2+ NEGA TIVE A UA WBC (test code = WBCU) 21-50 WBC/HPF 0-3 A UA RBC (test code = RBCU) 0-3 RBC/HPF 0-3 UA WBC NO REFLEX (test code = WBCUCL) 21-50 WBC/HPF 0-3 A UA BACTERIA (test code = BACU) 4+ /HPF NONE SEEN A UA SQUAMOUS CELLS (test code = SQU) 0-5 /HPF NONE SEEN UA MUCUS (test code = MUCU) TRACE /LPF NONE SEEN Indication for culture: Dysuria/FrequencySpecimen Description: CLEAN CATCH CBC W/AUTO [id number] 18:07:00* Test Item Value Reference Range Interpretation Comments WHITE BLOOD CELL (test code = WBC) 18.15 x10 3/uL 4.5-11.0 H RED BLOOD CELL (test code = RBC) 3.00 x10 6/uL 3.54-5.02 L HEMOGLOBIN (test code = HGB) 8.5 g/dL 11.0-15.0 L HEMATOCRIT (test code = HCT) 27.0 % 33.0-45.0 L MEAN CELL VOLUME (test code = MCV) 90.0 fL 81.0-99.0 N MEAN CELL HGB (test code = MCH) 28.3 pg 27.0-33.0 N MEAN CELL HGB CONCETRATION (test code = MCHC) 31.5 g/dL 33.0-37. 0 L RED CELL DISTRIBUTION WIDTH CV (test code = RDW) 15.2 % 11.5- 14.5 H RED CELL DISTRIBUTION WIDTH SD (test code = RDW-SD) 50.1 fL 37 .0-54.0 N PLATELET COUNT (test code = PLT) 315 x10 3/uL 150-400 N MEAN PLATELET VOLUME (test code = MPV) 9.9 fL 7.0-9.0 H NEUTROPHIL % (test code = NT%) 87.7 % 56.0-77.0 H IMMATURE GRANULOCYTE % (test code = IG%) 0.5 % 0.0-2.0 N LYMPHOCYTE % (test code = LY%) 4.2 % 14.0-32.0 L MONOCYTE % (test code = MO%) 7.1 % 4.8-9.0 N EOSINOPHIL % (test code = EO%) 0.4 % 0.3-3.7 N BASOPHIL % (test code = BA%) 0.1 % 0.0-2.0 N NUCLEATED RBC % (test code = NRBC%) 0.0 % 0-0 N NEUTROPHIL # (test code = NT#) 15.92 x10 3/uL 2.0-7.6 H IMMATURE GRANULOCYTE # (test code = IG#) 0.09 x10 3/uL 0.00-0.03 H LYMPHOCYTE # (test code = LY#) 0.76 x10 3/uL 1.0-3.8 L MONOCYTE # (test code = MO#) 1.29 x10 3/uL 0.1-0.8 H EOSINOPHIL # (test code = EO#) 0.07 x10 3/uL 0.0-0.2 N BASOPHIL # (test code = BA#) 0.02 x10 3/uL 0.0-0.2 N NUCLEATED RBC # (test code = NRBC#) 0.00 x10 3/uL 0.0-0.1 N MANUAL DIFF REQUIRED (test code = MDIFF) NO [id number] 09:10:00* Test Item Value Reference Range Interpretation Comments TACROLIMUS (test code = TACRO) 4.5 ng/mL 2.0-20.0 Trough (immediately following transplant) 15.0 Trough (steady state, 2 weeks or more after transplant): 3.0 - 8.0 Detection Limit = 1.0 Performed by LC- MS/MS technology. This test was developed and its performance characteristics determined by [employer]. It has not been cleared or approved by the Food and Drug Administration.Performed At: [address], [place] [id number] Sanjai MD Ph:[phone] COMMENTS: PLEASE DRAW BEFORE GIVING AM [id number] 13:50:00* Test Item Value Reference Range Interpretation Comments GLUBED (test code = GLUBED) 158 MG/DL 70-110 H Performed by certified single needle operator at [facility] BASIC METABOLIC [id number] 08:00:00* Test Item Value Reference Range Interpretation Comments SODIUM (test code = NA) 140 mEq/L 134-147 N POTASSIUM (test code = K) 4.0 mEq/L 3.4-5.0 N CHLORIDE (test code = CL) 112 mEq/L 100-108 H CARBON DIOXIDE (test code = CO2) 22 mEq/L 21-33 N ANION GAP (test code = GAP) 10 0-20 N GLUCOSE (test code = GLU) 147 mg/dL 70-110 H BLOOD UREA NITROGEN (test code = BUN) 27 mg/dL 7-18 H GLOMERULAR FILTRATION RATE (test code = GFR) 49.4 80-90 L Units of measure = ml/min/1.73 m2 CREATININE (test code = CREAT) 1.1 mg/dL 0.6-1.3 N CALCIUM (test code = CA) 7.2 mg/dL 8.0-10.5 L [id number] 08:00:00* Test Item Value Reference Range Interpretation Comments PHOSPHOROUS (test code = PHOS) 2.3 MG/DL 2.5-4.9 L [id number] 08:00:00* Test Item Value Reference Range Interpretation Comments MAGNESIUM (test code = MAG) 1.90 mg/dL 1.8-2.4 N [id number] 05:56:00* Test Item Value Reference Range Interpretation Comments GLUBED (test code = GLUBED) 144 MG/DL 70-110 H Performed by certified single needle operator at [facility] [id number] 00:24:00* Test Item Value Reference Range Interpretation Comments GLUBED (test code = GLUBED) 200 MG/DL 70-110 H Performed by certified single needle operator at [facility] [id number] 17:08:00* Test Item Value Reference Range Interpretation Comments GLUBED (test code = GLUBED) 261 MG/DL 70-110 H Performed by certified single needle operator at [facility] [id number] 11:34:00* Test Item Value Reference Range Interpretation Comments GLUBED (test code = GLUBED) 165 MG/DL 70-110 H Performed by certified single needle operator at [facility] BASIC METABOLIC [id number] 07:49:00* Test Item Value Reference Range Interpretation Comments SODIUM (test code = NA) 140 mEq/L 134-147 N POTASSIUM (test code = K) 4.0 mEq/L 3.4-5.0 N CHLORIDE (test code = CL) 115 mEq/L 100-108 H CARBON DIOXIDE (test code = CO2) 20 mEq/L 21-33 L ANION GAP (test code = GAP) 9 0-20 N GLUCOSE (test code = GLU) 110 mg/dL 70-110 N BLOOD UREA NITROGEN (test code = BUN) 31 mg/dL 7-18 H GLOMERULAR FILTRATION RATE (test code = GFR) 44.7 80-90 L Units of measure = ml/min/1.73 m2 CREATININE (test code = CREAT) 1.2 mg/dL 0.6-1.3 N CALCIUM (test code = CA) 7.3 mg/dL 8.0-10.5 L [id number] 07:49:00* Test Item Value Reference Range Interpretation Comments PHOSPHOROUS (test code = PHOS) 2.6 MG/DL 2.5-4.9 N [id number] 07:49:00* Test Item Value Reference Range Interpretation Comments MAGNESIUM (test code = MAG) 1.90 mg/dL 1.8-2.4 CALCIUM [id number] 07:49:00* Test Item Value Reference Range Interpretation Comments CALCIUM IONIZED (test code = IQRA) 1.17 MMOL/L 1.12-1.32 N VITAMIN D [id number] 07:49:00* Test Item Value Reference Range Interpretation Comments VITAMIN D 25-HYDROXY (test code = VITD25) 19.9 ng/mL 30-100 L BASIC METABOLIC [id number] 07:30:00* Test Item Value Reference Range Interpretation Comments SODIUM (test code = NA) 140 mEq/L 134-147 N POTASSIUM (test code = K) 4.0 mEq/L 3.4-5.0 N CHLORIDE (test code = CL) 115 mEq/L 100-108 H CARBON DIOXIDE (test code = CO2) 20 mEq/L 21-33 L ANION GAP (test code = GAP) 9 0-20 N GLUCOSE (test code = GLU) 110 mg/dL 70-110 N BLOOD UREA NITROGEN (test code = BUN) 31 mg/dL 7-18 H GLOMERULAR FILTRATION RATE (test code = GFR) 44.7 80-90 L Units of measure = ml/min/1.73 m2 CREATININE (test code = CREAT) 1.2 mg/dL 0.6-1.3 N CALCIUM (test code = CA) 7.3 mg/dL 8.0-10.5 L [id number] 07:30:00* Test Item Value Reference Range Interpretation Comments PHOSPHOROUS (test code = PHOS) 2.6 MG/DL 2.5-4.9 N [id number] 07:30:00* Test Item Value Reference Range Interpretation Comments MAGNESIUM (test code = MAG) 1.90 mg/dL 1.8-2.4 CALCIUM [id number] 07:30:00* Test Item Value Reference Range Interpretation Comments CALCIUM IONIZED (test code = IQRA) 1.17 MMOL/L 1.12-1.32 N VITAMIN D [id number] 07:30:00* Test Item Value Reference Range Interpretation Comments VITAMIN D 25-HYDROXY (test code = VITD25) ng/mL 30-100 CBC W/AUTO [id number] 07:28:00* Test Item Value Reference Range Interpretation Comments WHITE BLOOD CELL (test code = WBC) 8.71 x10 3/uL 4.5-11.0 N RED BLOOD CELL (test code = RBC) 3.21 x10 6/uL 3.54-5.02 L HEMOGLOBIN (test code = HGB) 9.0 g/dL 11.0-15.0 L HEMATOCRIT (test code = HCT) 29.5 % 33.0-45.0 L MEAN CELL VOLUME (test code = MCV) 91.9 fL 81.0-99.0 N MEAN CELL HGB (test code = MCH) 28.0 pg 27.0-33.0 N MEAN CELL HGB CONCETRATION (test code = MCHC) 30.5 g/dL 33.0-37. 0 L RED CELL DISTRIBUTION WIDTH CV (test code = RDW) 17.7 % 11.5- 14.5 H RED CELL DISTRIBUTION WIDTH SD (test code = RDW-SD) 59.7 fL 37 .0-54.0 H PLATELET COUNT (test code = PLT) 211 x10 3/uL 150-400 N MEAN PLATELET VOLUME (test code = MPV) 10.6 fL 7.0-9.0 H NEUTROPHIL % (test code = NT%) 71.2 % 56.0-77.0 N IMMATURE GRANULOCYTE % (test code = IG%) 0.6 % 0.0-2.0 N LYMPHOCYTE % (test code = LY%) 17.5 % 14.0-32.0 N MONOCYTE % (test code = MO%) 7.7 % 4.8-9.0 N EOSINOPHIL % (test code = EO%) 2.5 % 0.3-3.7 N BASOPHIL % (test code = BA%) 0.5 % 0.0-2.0 N NUCLEATED RBC % (test code = NRBC%) 0.0 % 0-0 N NEUTROPHIL # (test code = NT#) 6.21 x10 3/uL 2.0-7.6 N IMMATURE GRANULOCYTE # (test code = IG#) 0.05 x10 3/uL 0.00-0.03 H LYMPHOCYTE # (test code = LY#) 1.52 x10 3/uL 1.0-3.8 N MONOCYTE # (test code = MO#) 0.67 x10 3/uL 0.1-0.8 N EOSINOPHIL # (test code = EO#) 0.22 x10 3/uL 0.0-0.2 H BASOPHIL # (test code = BA#) 0.04 x10 3/uL 0.0-0.2 N NUCLEATED RBC # (test code = NRBC#) 0.00 x10 3/uL 0.0-0.1 N MANUAL DIFF REQUIRED (test code = MDIFF) NO BASIC METABOLIC [id number] 07:18:00* Test Item Value Reference Range Interpretation Comments SODIUM (test code = NA) mEq/L 134-147 POTASSIUM (test code = K) mEq/L 3.4-5.0 CHLORIDE (test code = CL) mEq/L 100-108 CARBON DIOXIDE (test code = CO2) mEq/L 21-33 ANION GAP (test code = GAP) 0-20 GLUCOSE (test code = GLU) mg/dL 70-110 BLOOD UREA NITROGEN (test code = BUN) mg/dL 7-18 GLOMERULAR FILTRATION RATE (test code = GFR) 80-90 CREATININE (test code = CREAT) mg/dL 0.6-1.3 CALCIUM (test code = CA) mg/dL 8.0-10.5 [id number] 07:18:00* Test Item Value Reference Range Interpretation Comments PHOSPHOROUS (test code = PHOS) MG/DL 2.5-4.9 [id number] 07:18:00* Test Item Value Reference Range Interpretation Comments MAGNESIUM (test code = MAG) mg/dL 1.8-2.4 CALCIUM [id number] 07:18:00* Test Item Value Reference Range Interpretation Comments CALCIUM IONIZED (test code = IQRA) 1.17 MMOL/L 1.12-1.32 N VITAMIN D [id number] 07:18:00* Test Item Value Reference Range Interpretation Comments VITAMIN D 25-HYDROXY (test code = VITD25) ng/mL 30-100 [id number] 05:42:00* Test Item Value Reference Range Interpretation Comments GLUBED (test code = GLUBED) 108 MG/DL 70-110 N Performed by certified single needle operator at [facility] [id number] 23:54:00* Test Item Value Reference Range Interpretation Comments GLUBED (test code = GLUBED) 134 MG/DL 70-110 H Performed by certified single needle operator at [facility] [id number] 17:50:00* Test Item Value Reference Range Interpretation Comments GLUBED (test code = GLUBED) 175 MG/DL 70-110 H Performed by certified single needle operator at [facility] [id number] 11:37:00* Test Item Value Reference Range Interpretation Comments GLUBED (test code = GLUBED) 130 MG/DL 70-110 H Performed by certified single needle operator at [facility] BASIC METABOLIC [id number] 08:00:00* Test Item Value Reference Range Interpretation Comments SODIUM (test code = NA) 143 mEq/L 134-147 N POTASSIUM (test code = K) 3.6 mEq/L 3.4-5.0 CHLORIDE (test code = CL) 121 mEq/L 100-108 H CARBON DIOXIDE (test code = CO2) 14 mEq/L 21-33 L ANION GAP (test code = GAP) 12 0-20 N GLUCOSE (test code = GLU) 135 mg/dL 70-110 H BLOOD UREA NITROGEN (test code = BUN) 33 mg/dL 7-18 H GLOMERULAR FILTRATION RATE (test code = GFR) 49.4 80-90 L Units of measure = ml/min/1.73 m2 CREATININE (test code = CREAT) 1.1 mg/dL 0.6-1.3 CALCIUM (test code = CA) 5.7 mg/dL 8.0-10.5 LL [id number] 08:00:00* Test Item Value Reference Range Interpretation Comments PHOSPHOROUS (test code = PHOS) 2.3 MG/DL 2.5-4.9 L [id number] 08:00:00* Test Item Value Reference Range Interpretation Comments MAGNESIUM (test code = MAG) 1.30 mg/dL 1.8-2.4 L [id number] 06:21:00* Test Item Value Reference Range Interpretation Comments GLUBED (test code = GLUBED) 157 MG/DL 70-110 H Performed by certified single needle operator at [facility] [id number] 00:21:00* Test Item Value Reference Range Interpretation Comments GLUBED (test code = GLUBED) 214 MG/DL 70-110 H Performed by certified single needle operator at [facility] URINALYSIS [id number] 18:18:00* Test Item Value Reference Range Interpretation Comments UA COLOR (test code = COLU) YELLOW YEL/STRAW UA APPEARANCE (test code = APPU) SL CLOUDY CLEAR UA GLUCOSE DIPSTICK (test code = DGLUU) NEGATIVE NEGATIVE UA BILIRUBIN DIPSTICK (test code = BILU) NEGATIVE NEGATIVE UA KETONE DIPSTICK (test code = KETU) NEGATIVE NEGATIVE UA SPECIFIC GRAVITY (test code = SGU) 1.008 1.005-1.030 N UA BLOOD DIPSTICK (test code = OTONIEL) NEGATIVE NEGATIVE UA PH DIPSTICK (test code = CARLOS) 5.0 5.0-7.0 N UA PROTEIN DIPSTICK (test code = PROU) NEGATIVE NEGATIVE UA UROBILINIOGEN DIPSTICK (test code = URO) 0.2 mg/dL 0.2-1.0 UA NITRITE DIPSTICK (test code = BRENNEN) NEGATIVE NEGATIVE UA LEUKOCYTE ESTERASE DIPSTICK (test code = LEUU) 1+ NEGA TIVE A UA RBC (test code = RBCU) 0-3 RBC/HPF 0-3 UA WBC NO REFLEX (test code = WBCUCL) 4-9 WBC/HPF 0-3 A UA BACTERIA (test code = BACU) NONE SEEN /HPF NONE SEEN UA SQUAMOUS CELLS (test code = SQU) 0-5 /HPF NONE SEEN UA MUCUS (test code = MUCU) TRACE /LPF NONE SEEN UR PROTEIN [id number] 18:18:00* Test Item Value Reference Range Interpretation Comments UR PROTEIN RANDOM (test code = PROTU) 19 mg/dL Note: Change in UNITS of MEASUREMENT. The Reference Range and Method Performance specificationshave not been established for this fluid. The test resultshould be correlated into the clinical context forinterpretation. UR CREATININE [id number] 18:18:00* Test Item Value Reference Range Interpretation Comments UR CREATININE RANDOM (test code = CREATU) 56.7 mg/dL The Reference Range and Method Performance specificationshave not been established for this fluid. The test resultshould be correlated into the clinical context forinterpretation. URINALYSIS [id number] 18:08:00* Test Item Value Reference Range Interpretation Comments UA COLOR (test code = COLU) YELLOW YEL/STRAW UA APPEARANCE (test code = APPU) SL CLOUDY CLEAR UA GLUCOSE DIPSTICK (test code = DGLUU) NEGATIVE NEGATIVE UA BILIRUBIN DIPSTICK (test code = BILU) NEGATIVE NEGATIVE UA KETONE DIPSTICK (test code = KETU) NEGATIVE NEGATIVE UA SPECIFIC GRAVITY (test code = SGU) 1.008 1.005-1.030 N UA BLOOD DIPSTICK (test code = OTONIEL) NEGATIVE NEGATIVE UA PH DIPSTICK (test code = CARLOS) 5.0 5.0-7.0 N UA PROTEIN DIPSTICK (test code = PROU) NEGATIVE NEGATIVE UA UROBILINIOGEN DIPSTICK (test code = URO) 0.2 mg/dL 0.2-1.0 UA NITRITE DIPSTICK (test code = BRENNEN) NEGATIVE NEGATIVE UA LEUKOCYTE ESTERASE DIPSTICK (test code = LEUU) 1+ NEGA TIVE A UA RBC (test code = RBCU) 0-3 RBC/HPF 0-3 UA WBC NO REFLEX (test code = WBCUCL) 4-9 WBC/HPF 0-3 A UA BACTERIA (test code = BACU) NONE SEEN /HPF NONE SEEN UA SQUAMOUS CELLS (test code = SQU) 0-5 /HPF NONE SEEN UA MUCUS (test code = MUCU) TRACE /LPF NONE SEEN UR PROTEIN [id number] 18:08:00* Test Item Value Reference Range Interpretation Comments UR PROTEIN RANDOM (test code = PROTU) mg/dL UR CREATININE [id number] 18:08:00* Test Item Value Reference Range Interpretation Comments UR CREATININE RANDOM (test code = CREATU) mg/dL [id number] 18:08:00* Test Item Value Reference Range Interpretation Comments GLUBED (test code = GLUBED) 249 MG/DL 70-110 H Performed by certified single needle operator at [facility] CBC W/AUTO [id number] 11:15:00* Test Item Value Reference Range Interpretation Comments WHITE BLOOD CELL (test code = WBC) 13.88 x10 3/uL 4.5-11.0 H RED BLOOD CELL (test code = RBC) 3.55 x10 6/uL 3.54-5.02 N HEMOGLOBIN (test code = HGB) 10.0 g/dL 11.0-15.0 L HEMATOCRIT (test code = HCT) 32.9 % 33.0-45.0 L MEAN CELL VOLUME (test code = MCV) 92.7 fL 81.0-99.0 N MEAN CELL HGB (test code = MCH) 28.2 pg 27.0-33.0 N MEAN CELL HGB CONCETRATION (test code = MCHC) 30.4 g/dL 33.0-37. 0 L RED CELL DISTRIBUTION WIDTH CV (test code = RDW) 17.4 % 11.5- 14.5 H RED CELL DISTRIBUTION WIDTH SD (test code = RDW-SD) 59.6 fL 37 .0-54.0 H PLATELET COUNT (test code = PLT) 157 x10 3/uL 150-400 N MEAN PLATELET VOLUME (test code = MPV) 11.6 fL 7.0-9.0 H NEUTROPHIL % (test code = NT%) 86.2 % 56.0-77.0 H IMMATURE GRANULOCYTE % (test code = IG%) 0.6 % 0.0-2.0 N LYMPHOCYTE % (test code = LY%) 4.4 % 14.0-32.0 L MONOCYTE % (test code = MO%) 7.5 % 4.8-9.0 N EOSINOPHIL % (test code = EO%) 0.9 % 0.3-3.7 N BASOPHIL % (test code = BA%) 0.4 % 0.0-2.0 N NUCLEATED RBC % (test code = NRBC%) 0.0 % 0-0 N NEUTROPHIL # (test code = NT#) 11.98 x10 3/uL 2.0-7.6 H IMMATURE GRANULOCYTE # (test code = IG#) 0.08 x10 3/uL 0.00-0.03 H LYMPHOCYTE # (test code = LY#) 0.61 x10 3/uL 1.0-3.8 L MONOCYTE # (test code = MO#) 1.04 x10 3/uL 0.1-0.8 H EOSINOPHIL # (test code = EO#) 0.12 x10 3/uL 0.0-0.2 N BASOPHIL # (test code = BA#) 0.05 x10 3/uL 0.0-0.2 N NUCLEATED RBC # (test code = NRBC#) 0.00 x10 3/uL 0.0-0.1 N MANUAL DIFF REQUIRED (test code = MDIFF) NO SLIDE REVIEWED, CONSISTENT WITH AUTO DIFF. CBC W/AUTO [id number] 11:15:00* Test Item Value Reference Range Interpretation Comments WHITE BLOOD CELL (test code = WBC) 13.88 x10 3/uL 4.5-11.0 H RED BLOOD CELL (test code = RBC) 3.55 x10 6/uL 3.54-5.02 N HEMOGLOBIN (test code = HGB) 10.0 g/dL 11.0-15.0 L HEMATOCRIT (test code = HCT) 32.9 % 33.0-45.0 L MEAN CELL VOLUME (test code = MCV) 92.7 fL 81.0-99.0 N MEAN CELL HGB (test code = MCH) 28.2 pg 27.0-33.0 N MEAN CELL HGB CONCETRATION (test code = MCHC) 30.4 g/dL 33.0-37. 0 L RED CELL DISTRIBUTION WIDTH CV (test code = RDW) 17.4 % 11.5- 14.5 H RED CELL DISTRIBUTION WIDTH SD (test code = RDW-SD) 59.6 fL 37 .0-54.0 H PLATELET COUNT (test code = PLT) 157 x10 3/uL 150-400 N MEAN PLATELET VOLUME (test code = MPV) 11.6 fL 7.0-9.0 H NEUTROPHIL % (test code = NT%) 86.2 % 56.0-77.0 H IMMATURE GRANULOCYTE % (test code = IG%) 0.6 % 0.0-2.0 N LYMPHOCYTE % (test code = LY%) 4.4 % 14.0-32.0 L MONOCYTE % (test code = MO%) 7.5 % 4.8-9.0 N EOSINOPHIL % (test code = EO%) 0.9 % 0.3-3.7 N BASOPHIL % (test code = BA%) 0.4 % 0.0-2.0 N NUCLEATED RBC % (test code = NRBC%) 0.0 % 0-0 N NEUTROPHIL # (test code = NT#) 11.98 x10 3/uL 2.0-7.6 H IMMATURE GRANULOCYTE # (test code = IG#) 0.08 x10 3/uL 0.00-0.03 H LYMPHOCYTE # (test code = LY#) 0.61 x10 3/uL 1.0-3.8 L MONOCYTE # (test code = MO#) 1.04 x10 3/uL 0.1-0.8 H EOSINOPHIL # (test code = EO#) 0.12 x10 3/uL 0.0-0.2 N BASOPHIL # (test code = BA#) 0.05 x10 3/uL 0.0-0.2 N NUCLEATED RBC # (test code = NRBC#) 0.00 x10 3/uL 0.0-0.1 N MANUAL DIFF REQUIRED (test code = MDIFF) NO SLIDE REVIEWED, CONSISTENT WITH AUTO DIFF. BASIC METABOLIC [id number] 10:37:00* Test Item Value Reference Range Interpretation Comments SODIUM (test code = NA) 133 mEq/L 134-147 L POTASSIUM (test code = K) 4.7 mEq/L 3.4-5.0 N CHLORIDE (test code = CL) 109 mEq/L 100-108 H CARBON DIOXIDE (test code = CO2) 17 mEq/L 21-33 L ANION GAP (test code = GAP) 12 0-20 N GLUCOSE (test code = GLU) 115 mg/dL 70-110 H BLOOD UREA NITROGEN (test code = BUN) 44 mg/dL 7-18 H GLOMERULAR FILTRATION RATE (test code = GFR) 32.1 80-90 L Units of measure = ml/min/1.73 m2 CREATININE (test code = CREAT) 1.6 mg/dL 0.6-1.3 H CALCIUM (test code = CA) 7.5 mg/dL 8.0-10.5 L BASIC METABOLIC [id number] 10:37:00* Test Item Value Reference Range Interpretation Comments SODIUM (test code = NA) 133 mEq/L 134-147 L POTASSIUM (test code = K) 4.7 mEq/L 3.4-5.0 N CHLORIDE (test code = CL) 109 mEq/L 100-108 H CARBON DIOXIDE (test code = CO2) 17 mEq/L 21-33 L ANION GAP (test code = GAP) 12 0-20 N GLUCOSE (test code = GLU) 115 mg/dL 70-110 H BLOOD UREA NITROGEN (test code = BUN) 44 mg/dL 7-18 H GLOMERULAR FILTRATION RATE (test code = GFR) 32.1 80-90 L Units of measure = ml/min/1.73 m2 CREATININE (test code = CREAT) 1.6 mg/dL 0.6-1.3 H CALCIUM (test code = CA) 7.5 mg/dL 8.0-10.5 L BASIC METABOLIC [id number] 10:33:00* Test Item Value Reference Range Interpretation Comments SODIUM (test code = NA) 133 mEq/L 134-147 L POTASSIUM (test code = K) 4.7 mEq/L 3.4-5.0 N CHLORIDE (test code = CL) 109 mEq/L 100-108 H CARBON DIOXIDE (test code = CO2) 17 mEq/L 21-33 L ANION GAP (test code = GAP) 12 0-20 N GLUCOSE (test code = GLU) 115 mg/dL 70-110 H BLOOD UREA NITROGEN (test code = BUN) 44 mg/dL 7-18 H GLOMERULAR FILTRATION RATE (test code = GFR) 80-90 CREATININE (test code = CREAT) mg/dL 0.6-1.3 CALCIUM (test code = CA) 7.5 mg/dL 8.0-10.5 L BASIC METABOLIC [id number] 10:33:00* Test Item Value Reference Range Interpretation Comments SODIUM (test code = NA) 133 mEq/L 134-147 L POTASSIUM (test code = K) 4.7 mEq/L 3.4-5.0 N CHLORIDE (test code = CL) 109 mEq/L 100-108 H CARBON DIOXIDE (test code = CO2) 17 mEq/L 21-33 L ANION GAP (test code = GAP) 12 0-20 N GLUCOSE (test code = GLU) 115 mg/dL 70-110 H BLOOD UREA NITROGEN (test code = BUN) 44 mg/dL 7-18 H GLOMERULAR FILTRATION RATE (test code = GFR) 80-90 CREATININE (test code = CREAT) mg/dL 0.6-1.3 CALCIUM (test code = CA) 7.5 mg/dL 8.0-10.5 L CBC W/AUTO [id number] 10:23:00* Test Item Value Reference Range Interpretation Comments WHITE BLOOD CELL (test code = WBC) 13.88 x10 3/uL 4.5-11.0 H RED BLOOD CELL (test code = RBC) 3.55 x10 6/uL 3.54-5.02 N HEMOGLOBIN (test code = HGB) 10.0 g/dL 11.0-15.0 L HEMATOCRIT (test code = HCT) 32.9 % 33.0-45.0 L MEAN CELL VOLUME (test code = MCV) 92.7 fL 81.0-99.0 N MEAN CELL HGB (test code = MCH) 28.2 pg 27.0-33.0 N MEAN CELL HGB CONCETRATION (test code = MCHC) 30.4 g/dL 33.0-37. 0 L RED CELL DISTRIBUTION WIDTH CV (test code = RDW) 17.4 % 11.5- 14.5 H RED CELL DISTRIBUTION WIDTH SD (test code = RDW-SD) 59.6 fL 37 .0-54.0 H PLATELET COUNT (test code = PLT) 157 x10 3/uL 150-400 N MEAN PLATELET VOLUME (test code = MPV) 11.6 fL 7.0-9.0 H NEUTROPHIL % (test code = NT%) % 56.0-77.0 LYMPHOCYTE % (test code = LY%) % 14.0-32.0 NEUTROPHIL # (test code = NT#) x10 3/uL 2.0-7.6 LYMPHOCYTE # (test code = LY#) x10 3/uL 1.0-3.8 MANUAL DIFF REQUIRED (test code = MDIFF) [id number] 06:29:00* Test Item Value Reference Range Interpretation Comments GLUBED (test code = GLUBED) 120 MG/DL 70-110 H Performed by certified single needle operator at [facility] [id number] 00:26:00* Test Item Value Reference Range Interpretation Comments GLUBED (test code = GLUBED) 171 MG/DL 70-110 H Performed by certified single needle operator at [facility] PROCALCITONIN (PCT)2019-03-04 20:11:00* Test Item Value Reference Range Interpretation Comments PROCALCITONIN (PCT) (test code = PROCAL) 1.06 ng/mL 0.00-0.05 H PROCALCITONIN (PCT) NORMAL RANGE (ADULT): <0.05 NG/ML. [...] if any concentrations <2 ng/mL are obtained. [id number] 19:54:00* Test Item Value Reference Range Interpretation Comments GLUBED (test code = GLUBED) 251 MG/DL 70-110 H Performed by certified single needle operator at [facility] - CT ABD PELVIS W/O [id number] 17:35:00 Name: IQRA MATTHEW [facility] : 1950 Age/S: 68 / F [address] [place] [address] Blvd Unit #: [id number] Loc: [place] [address] Phys: Maximo Roblero MD Acct: [id number] Dis Date: Status: [facility] ER PHONE #: [phone] Exam Date: 03/04/2019 1711 FAX #: [phone] Reason: pelvic pain, diarrhea EXAMS: CPT CODE: [id number] CT ABD PELVIS W/O CONT [address] CT ABDOMEN AND PELVIS WITHOUT CONTRAST INDICATION: [...] 1 Signed Report (CONTINUED) Name: IQRA MATTHEW [facility] : 1950 Age/S: 68 / F [address] Unit #: [id number] Loc: [place] [address] Phys: Maximo Roblero MD Acct: [id number] Dis Date: Status: REG ER PHONE #: [phone] Exam Date: 03/04/2019 1711 FAX #: [phone] Reason: pelvic pain, diarrhea EXAMS: CPT CODE: [id number] CT ABD PELVIS W/O CONT 70494 < Continued> There is symmetric moderately severe [...] 2 Signed Report (CONTINUED) Name: IQRA MATTHEW [facility] : 1950 Age/S: 68 / F [address] Unit #: [id number] Loc: [place] [address] Phys: Maximo Roblero MD Acct: [id number] Dis Date: Status: REG ER PHONE #: [phone] Exam Date: 03/04/2019 1711 FAX #: [phone] Reason: pelvic pain, diarrhea EXAMS: CPT CODE: [id number] CT ABD PELVIS W/O CONT 82629 < Continued> at 1735 Reported and signed by: Jaime Chua D.O. CC: Maximo Roblero MD Technologist:Mee Polk, RT(R) CTDI: DLP: Trnscb Date/Time: 03/04/2019 (173) [email or web address] Orig Print D/T: S: 03/04/2019 (3760) PAGE 3 Signed Report C REACTIVE [id number] 17:15:00* Test Item Value Reference Range Interpretation Comments C REACTIVE PROTEIN (test code = CRP) 217.0 MG/L 0.0-2.9 H CBC W/AUTO [id number] 17:11:00* Test Item Value Reference Range Interpretation Comments WHITE BLOOD CELL (test code = WBC) 14.64 x10 3/uL 4.5-11.0 H RED BLOOD CELL (test code = RBC) 3.34 x10 6/uL 3.54-5.02 L HEMOGLOBIN (test code = HGB) 9.6 g/dL 11.0-15.0 L HEMATOCRIT (test code = HCT) 31.3 % 33.0-45.0 L MEAN CELL VOLUME (test code = MCV) 93.7 fL 81.0-99.0 N MEAN CELL HGB (test code = MCH) 28.7 pg 27.0-33.0 N MEAN CELL HGB CONCETRATION (test code = MCHC) 30.7 g/dL 33.0-37. 0 L RED CELL DISTRIBUTION WIDTH CV (test code = RDW) 17.4 % 11.5- 14.5 H RED CELL DISTRIBUTION WIDTH SD (test code = RDW-SD) 60.2 fL 37 .0-54.0 H PLATELET COUNT (test code = PLT) 197 x10 3/uL 150-400 N MEAN PLATELET VOLUME (test code = MPV) 11.0 fL 7.0-9.0 H NEUTROPHIL % (test code = NT%) 92.4 % 56.0-77.0 H IMMATURE GRANULOCYTE % (test code = IG%) 0.6 % 0.0-2.0 N LYMPHOCYTE % (test code = LY%) 4.0 % 14.0-32.0 L MONOCYTE % (test code = MO%) 2.9 % 4.8-9.0 L EOSINOPHIL % (test code = EO%) 0.0 % 0.3-3.7 L BASOPHIL % (test code = BA%) 0.1 % 0.0-2.0 N NUCLEATED RBC % (test code = NRBC%) 0.0 % 0-0 N NEUTROPHIL # (test code = NT#) 13.52 x10 3/uL 2.0-7.6 H IMMATURE GRANULOCYTE # (test code = IG#) 0.09 x10 3/uL 0.00-0.03 H LYMPHOCYTE # (test code = LY#) 0.59 x10 3/uL 1.0-3.8 L MONOCYTE # (test code = MO#) 0.42 x10 3/uL 0.1-0.8 N EOSINOPHIL # (test code = EO#) 0.00 x10 3/uL 0.0-0.2 N BASOPHIL # (test code = BA#) 0.02 x10 3/uL 0.0-0.2 N NUCLEATED RBC # (test code = NRBC#) 0.00 x10 3/uL 0.0-0.1 N MANUAL DIFF REQUIRED (test code = MDIFF) NO SLIDE REVIEWED, CONSISTENT WITH AUTO DIFF. COMPREHENSIVE METABOLIC [id number] 17:09:00* Test Item Value Reference Range Interpretation Comments SODIUM (test code = NA) 131 mEq/L 134-147 L POTASSIUM (test code = K) 4.5 mEq/L 3.4-5.0 N CHLORIDE (test code = CL) 104 mEq/L 100-108 N CARBON DIOXIDE (test code = CO2) 22 mEq/L 21-33 N ANION GAP (test code = GAP) 10 0-20 N GLUCOSE (test code = GLU) 200 mg/dL 70-110 H BLOOD UREA NITROGEN (test code = BUN) 49 mg/dL 7-18 H GLOMERULAR FILTRATION RATE (test code = GFR) 26.3 80-90 L Units of measure = ml/min/1.73 m2 CREATININE (test code = CREAT) 1.9 mg/dL 0.6-1.3 H TOTAL PROTEIN (test code = PROT) 6.6 g/dL 6.4-8.2 N ALBUMIN (test code = ALB) 2.40 g/dL 3.4-5.0 L CALCIUM (test code = CA) 7.9 mg/dL 8.0-10.5 L BILIRUBIN TOTAL (test code = BILT) 0.5 MG/DL <1.5 N SGOT/AST (test code = AST) 5 IUnit/L 15-37 L SGPT/ALT (test code = ALT) 6 IUnit/L 15-65 L ALKALINE PHOSPHATASE TOTAL (test code = ALKP) 119 IUnit/L 20-125 N CBC W/AUTO [id number] 16:55:00* Test Item Value Reference Range Interpretation Comments WHITE BLOOD CELL (test code = WBC) 14.64 x10 3/uL 4.5-11.0 H RED BLOOD CELL (test code = RBC) 3.34 x10 6/uL 3.54-5.02 L HEMOGLOBIN (test code = HGB) 9.6 g/dL 11.0-15.0 L HEMATOCRIT (test code = HCT) 31.3 % 33.0-45.0 L MEAN CELL VOLUME (test code = MCV) 93.7 fL 81.0-99.0 N MEAN CELL HGB (test code = MCH) 28.7 pg 27.0-33.0 N MEAN CELL HGB CONCETRATION (test code = MCHC) 30.7 g/dL 33.0-37. 0 L RED CELL DISTRIBUTION WIDTH CV (test code = RDW) 17.4 % 11.5- 14.5 H RED CELL DISTRIBUTION WIDTH SD (test code = RDW-SD) 60.2 fL 37 .0-54.0 H PLATELET COUNT (test code = PLT) 197 x10 3/uL 150-400 N MEAN PLATELET VOLUME (test code = MPV) 11.0 fL 7.0-9.0 H NEUTROPHIL % (test code = NT%) % 56.0-77.0 LYMPHOCYTE % (test code = LY%) % 14.0-32.0 NEUTROPHIL # (test code = NT#) x10 3/uL 2.0-7.6 LYMPHOCYTE # (test code = LY#) x10 3/uL 1.0-3.8 MANUAL DIFF REQUIRED (test code = MDIFF) [[facility]] CBC (INCLUDES DIFF/PLT)2019-01-07 14:06:01* Test Item Value Reference Range Interpretation Comments WBC (test code = 6690-2) 8.1 {K/CMM} 3.7-10.4 RBC; Below Low Threshold (test code = 789-8) 3.42 {M/CMM} 4.20-5.40 Hgb; Below Low Threshold (test code = 718-7) 9.6 g/dl 12.0-16.0 Hct; Below Low Threshold (test code = 68872-2) 30.3 % 36.0-48 .0 MCV (test code = 787-2) 88.4 fL 80.0-98.0 MCH (test code = 785-6) 28.0 pg 27.0-31.0 MCHC; Below Low Threshold (test code = 786-4) 31.6 g/dl 32.0-36. 0 RDW; Above High Threshold (test code = 788-0) 17.7 % 11.5-14. 5 Platelet (test code = 80168-5) 273 {K/CMM} 133-450 Mean Platelet Volume (test code = 79210-8) 8.9 fL 7.4-10.4 [facility]] SED RATE BY MODIFIED [id number] 14:06:01* Test Item Value Reference Range Interpretation Comments Sedimentation Rate; Above High Threshold (test code = 59712-6) 6 4 {mm/hr} 0-20 [facility]] HEMOGLOBIN [id number] 14:06:01* Test Item Value Reference Range Interpretation Comments Hemoglobin A1c; Above High Threshold (test code = 4548-4) 6.1 % <=5.6 [facility]] [id number] 14:06:01* Test Item Value Reference Range Interpretation Comments Segmented Neutrophils (test code = 36810-6) 71.2 % 45.0-75.0 Monocytes (test code = 21417-1) 3.9 % 2.0-12.0 Lymphocytes (test code = 87537-9) 22.8 % 20.0-40.0 Eosinophils (test code = 94839-4) 2.1 % 0.0-4.0 Basophils (test code = 706-2) 0.0 % 0.0-1.0 Segs-Bands # (test code = 01954-7) 5.8 {K/CMM} 1.5-8.1 Lymphocytes # (test code = 95316-5) 1.9 {K/CMM} 1.0-5.5 Monocytes # (test code = 90650-2) 0.3 {K/CMM} 0.0-0.8 Eosinophils # (test code = 89093-4) 0.2 {K/CMM} 0.0-0.5 Basophils # (test code = 04952-3) 0.0 {K/CMM} 0.0-0.2 RBC Morphology (test code = RBC Morphology) Normal Normal Plt Morphology (test code = Plt Morphology) Normal Normal [facility]] [id number] 14:06:01* Test Item Value Reference Range Interpretation Comments Albumin Lvl; Below Low Threshold (test code = 1751-7) 2.8 g/dl 3.5-5.0 [facility]] C-REACTIVE [id number] 14:06:01* Test Item Value Reference Range Interpretation Comments CRP (test code = CRP) 63.8 mg/L <=2.9 [facility][U] XRAY KNEE 3 VWS LEFT [id number] 12:02:00 Images acquired, not reported on this accession number.[facility]
--- OUTSIDE RECORDS SUMMARY | 2020-03-04 20:06 | XMS REPORT | Continuity of Care Document ---
Author Author [facility] t Organization [facility] Address [address] [place] [address] Phone Unavailable Care Team Providers Care Clerical Adviser Name Role Phone MIGNON SHAW, KHALIDA PCP Michelle Mills MA Attphys Unavailable JASON WATSON Attphys Unavailable Art BENITEZ Attphys Unavailable Bruce SHAW, Kiran Lamas Attphys RYAN COBB M.D. Attphys Unavailable WILD BERNARD Attphys Unavailable ORIN PARISH M.D. Attphys Unavailable Payers Payer Name Policy Type Policy Number Effective Date Expiration Date S erasto MEDICAREMEDICARE PART A AND [id number] 1997-PresentHOUS SUSANNE MEMedicare [id number] 1997 00:00:00 Granton Nadia [facility] [id number] 2019-Pr esentMilitary [id number] 2018 00:00:00 Granton Nadia Chaves o [id number] 2019 00:00:00 [facility] Medicare A & B [id number] 1997 00:00:00 [facility] Problems Condition Name Condition Details Condition Category [...] Immunosuppressed status Disease Active 2018-07-15 00:00:00 Aamir carlos Normocytic anemia Normocytic anemia Disease Active 2018-07-15 00:00:00 Aamir Zuniga Acute renal insufficiency Acute renal insufficiency Disease Ac tive 2018-07-15 00:00:00 Aamir carlos History of diabetes mellitus History of diabetes mellitus Problem Re solved [facility] History of kidney disease History of kidney disease Problem Resolved [facility] Open knee wound Open knee wound Problem Active [facility] Open wound of left knee, initial encounter Open wound of left knee, initial encounter Problem Active [facility] Arthritis of left knee Arthritis of left knee Problem Active [facility] Allergies, Adverse Reactions, Alerts Allergy Name Allergy Type Status Severity Reaction(s) Onset Date Inacti ve Date Treating Clinician Comments Source Aspirin Allergy to Substance Active Moderate 2019-06-26 00:00:00 [facility] Sulfamethoxazole Allergy to Substance Active Moderate 2019-06-01 7 00:00:00 [facility] Trimethoprim Allergy to Substance Active Moderate 2019-06-26 00:00 :00 [facility] Levofloxacin Allergy to Substance Active Moderate 2019-06-26 00:00 :00 [facility] Sulfa (Sulfonamide Antibiotics) DA Active U 2019-03-04 00 :00:00 [facility] aspirin DA Active U 2019-03-04 00:00:00 [facility] doxycycline DA Active U 2019-03-04 00:00:00 [facility] levofloxacin DA Active U 2019-03-04 00:00:00 [facility] cefdinir DA Active U 2019-03-04 00:00:00 [facility] Cefdinir Propensity to adverse reactions to drug Active Diarrhea 2019-01-01 00:00:00 Aamir Panchalis rebekah Doxycycline Propensity to adverse reactions to drug Active Diarrhea 2019-01-01 00:00:00 Aaimr welch Adhesive Tape-Silicones Propensity to adverse reactions to drug Activ e 2018-12-31 00:00:00 Only use paper tape Aamir Zuniga Aspirin Propensity to adverse reactions to drug Active Hives 2018-07-15 00:00:00 Aamir Lamb t Levofloxacin Propensity to adverse reactions to drug Active GI Intolerance 2018-07-15 00:00:00 Aamir rapp Sulfamethoxazole-Trimethoprim Propensity to adverse reactions to dr ug Active GI Intolerance 2018-07-15 00:00:00 Luisa arteaga [facility] Aspirin Free Analgesic TABS drug allergy Active [facility] Septra TABS drug allergy Active [facility] Cefdinir CAPS drug allergy Active [facility] Doxycycline Hyclate CAPS drug allergy Active [facility] Levaquin TABS drug allergy Active [facility] Social History Social Habit Start Date Stop Date Quantity Comments Source History SDOH Alcohol Std Drinks Aamir Zuniga History SDOH Alcohol Binge [facility] Sex Assigned At Liliana shultzchandler Zuniga Tobacco use and exposure 2019-01-13 00:00:00 2019-01-13 00:00:00 Damaris r used Aamir Zuniga Alcohol intake 2019-01-13 00:00:00 2019-01-13 00:00:00 Current non-drinker of alcohol (finding) Aamir [facility] History SDOH Alcohol Frequency 2018-07-15 00:00:00 2018-07-15 [...] unit/mL injection 2019-01-18 14:53: 54 Yes 2U [id number] Inject 2-5 Units under the s kin [...] predniSONE 5 MG Oral Tablet Yes [facility] Amoxicillin 875 MG Oral Tablet Amoxicillin 875 MG Oral Tablet Yes [facility] Mycophenolate Mofetil 250 MG Oral Capsule Mycophenolat e Mofetil 250 MG Oral Capsule Yes [facility] Tacrolimus 1 MG Oral Capsule Tacrolimus 1 MG Oral Capsule Yes [facility] HYDROcodone-Acetaminophen 5-300 MG Oral Tablet HYDROco done-Acetaminophen 5-300 MG Oral Tablet Yes [facility] Cholecalciferol (Vitamin D3) (Vitamin D3) 2,000 Unit T ab.chew Cholecalciferol (Vitamin D3) (Vitamin D3) 2,000 Unit Tab.chew Yes 1 Daily [facility] Cholestyramine (With Sugar) (Questran Packet) 4 Gm Pac ket Cholestyramine (With Sugar) (Questran Packet) 4 Gm Packet Yes 4 T wice A Day [facility] Hydrocodone Bit/Acetaminophen ([place] 10-325 Tablet) 1 Each Tablet Hydrocodone Bit/Acetaminophen ([place] 10-325 Tablet) 1 Each Tablet Yes 1 Every 12 Hours as needed for Moderate Pain (4-6) [facility] Mycophenolate Mofetil 250 Mg Capsule Mycophenolate Mofetil 250 Mg C apsule Yes 250 Twice A Day [facility] Ondansetron Hcl (Zofran*) 4 Mg Tablet Ondansetron Hcl (Zofran*) 4 M g Tablet Yes 4 Every 4 Hours as needed for Nausea And V omiting [facility] Prednisone 5 Mg Tablet Prednisone 5 Mg Tablet Yes 5 Daily [facility] Tacrolimus 1 Mg Capsule Tacrolimus 1 Mg Capsule Yes 1 Daily [facility] Tacrolimus 1 Mg Capsule Tacrolimus 1 Mg Capsule Yes 2 Daily@1700 [facility] Vital Signs Vital Name Observation Time Observation Value Comments Source Height 2019-01-07 11:51:00 65 [in_us] [facility] Weight 2019-01-07 11:51:00 145 [lb_av] [facility] Body Mass Index Calculated 2019-01-07 11:51:00 24.13 kg/m2 [facility] Procedures Procedure Date / Time Performed Performing Clinician Sourbenjamin e EGD with biopsy 2019-07-02 00:00:00 MARIANN CROW [facility] Colonoscopy with biopsy 2019-07-02 00:00:00 MARIANN CROW [facility] CT of abdomen and pelvis without contrast 2019-06-30 00:00:00 JASON MARY [facility] Computed tomography of abdomen and pelvis with contrast 2019 00:00:00 EUGENIAMaameSOPHIE [facility] [[facility]] C-REACTIVE PROTEIN 2019-01-07 00:00:00 [facility] [[facility]] SED RATE BY MODIFIED WESTERGREN 2019-01-07 00:00:00 [facility] [[facility]] CBC (INCLUDES DIFF/PLT) 2019-01-07 00:00:00 [facility] [[facility]] HEMOGLOBIN A1c 2019-01-07 00:00:00 [facility] [B] ALBUMIN SERUM 2019-01-07 00:00:00 [facility] [U] XRAY KNEE 3 VWS LEFT [id number] 2019-01-07 00:00:00 [facility] History of section [facility] History of Kidney transplantation [facility] Plan of Care Planned Activity Planned Date Details Comments Source Future Scheduled Test 2019-12-10 00:00:00 DIABETIC FOOT EXAM [code = DIABETIC FOOT EXAM] [facility] Future Scheduled Test 2019-11-29 00:00:00 INFLUENZA VACCINE [code = INFLUENZA VACCINE] [facility] Future Scheduled Test 2000 00:00:00 BREAST CANCER SCRE ENING [code = BREAST CANCER SCREENING] [facility] Future Scheduled Test 2000 00:00:00 COLONOSCOPY SCREEN ING [code = COLONOSCOPY SCREENING] [facility] Scheduled Test 2000 00:00:00 SHINGLES VACCINES (#1) [code = SHINGLES VACCINES (#1)] [facility] Future Scheduled Test 1960 00:00:00 DIABETES: RETINAL EYE EXAM [code = DIABETES: RETINAL EYE EXAM] [facility] Encounters Start Date/Time End Date/Time Encounter Type Admission Type Attendi [facility] Facility Care Department Encounter ID Source 2019-07-03 09:02:00 2019-07-04 12:42:00 Discharged Inpatient 1 JASON WATSON [facility] [id number] [facility] 2019-06-26 18:21:00 2019-06-27 02:35:00 Departed Emergency Room 1 VIVIANE BENITEZ [facility] [id number] [facility] 2019-05-20 19:01:00 2019-05-20 19:01:00 Emergency E [facility] [id number] [facility] 2019-04-11 08:44:00 2019-04-11 08:44:00 Outpatient [facility] [id number] [facility] 2019-03-25 12:45:00 2019-03-25 12:45:00 Outpatient [facility] [id number] [facility] 2019-01-07 11:00:00 2019-01-07 11:00:00 Appointment; RYAN COBB M.D. DOHERTY, DAVID, M.D. [facility] [id number] [facility] 2018-10-29 13:45:00 2018-10-29 13:45:00 Appointment; WILD BERNARD ANDREW [facility] [id number] [facility] 2018-10-29 12:30:00 2018-10-29 12:30:00 Outpatient [facility] [id number] [facility] 2018-10-10 12:30:00 2018-10-10 12:30:00 Appointment; FARHANA PARISH M.D. MATHIS, KENNETH, M.D. [facility] [id number] [facility] 2018-10-10 11:30:00 2018-10-10 11:30:00 Appointment; FARHANA PARISH M.D. MATHIS, KENNETH, M.D. [facility] UTP [id number] [facility] Results Test Description Test Time Test Comments Results Result Comments Source Bedside Glucose 2019-07-04 11:41:00 Test Item Bedside Glucose (test code = 72168-2) 130 70-120 H Meter ID: [id number] [facility] CenterUrine Culture 2019-07-04 07:56:00* Test Item Value Reference Range Interpretation Comments Urine Culture (test code = 630-4) No Result Data Provided [facility] CenterFolate2020-03-06 05:14:00* Test Item Value Reference Range Interpretation Comments Folate (test code = 2284-8) 7.1 >3.0 A serum folate concentration of less than 3.1 ng/mL isconsidered to represent cl inical deficiency.Performed at: [facility] [address] [id number] Director: Basil Anderson MD, Phone: [phone] Hospitals of Providence Memorial Campusodium Nrxjx2026-13-56 07:51:00* Test Item Value Reference Range Interpretation Comments Sodium Level (test code = 2951-2) 137 136-145 [facility] CenterPotassium Hhdfv8922-04-82 07:51:00* Test Item Value Reference Range Interpretation Comments Potassium Level (test code = 2823-3) 3.9 3.5-5.1 [facility] CenterChloride Nqljw4767-43-28 07:51:00* Test Item Value Reference Range Interpretation Comments Chloride Level (test code = 2075-0) 118 98-107 H [facility] CenterCarbon Dioxide Aappf9839-39-10 07:51:00* Test Item Value Reference Range Interpretation Comments Carbon Dioxide Level (test code = 2028-9) 15 22-29 L [facility] CenterAnion Pve2601-42-42 07:51:00* Test Item Value Reference Range Interpretation Comments Anion Gap (test code = 70426-7) 7.9 8-16 L [facility] CenterBlood Urea Tjvwpcqk1945-75-30 07:51:00* Test Item Value Reference Range Interpretation Comments Blood Urea Nitrogen (test code = 3094-0) 9 7-26 [facility] CenterCreatinine2020-03-05 07:51:00* Test Item Value Reference Range Interpretation Comments Creatinine (test code = 2160-0) 0.95 0.57-1.11 [facility] CenterBUN/Creatinine Iozqo5379-41-80 07:51:00* Test Item Value Reference Range Interpretation Comments BUN/Creatinine Ratio (test code = 3097-3) 9 6-25 [facility] CenterEstimat Glomerular Filtration Rate 2019-07-03 07:51:00* Test Item Value Reference Range Interpretation Comments Estimat Glomerular Filtration Rate (test code = 142636724) 58 >60 L Ranges were taken from the National Kidney Disease Education Program and the [facility] literature.Reference ranges:60 or greater: Yaqyyq21-43 ( for 3 consecutive months): Chronic kidney disease 15 or less: Kidney failureVal Verde Regional Medical CenterGlucose Cmnxk6470-23-63 07:51:00* Test Item Value Reference Range Interpretation Comments Glucose Level (test code = FRS2944) 60 74-118 L [facility] CenterCalcium Peiln2462-98-28 07:51:00* Test Item Value Reference Range Interpretation Comments Calcium Level (test code = 21753-9) 7.2 8.4-10.2 L [facility] CenterPlatelet Morphology Fidthox3336-25-24 07:14:00* Test Item Value Reference Range Interpretation Comments Platelet Morphology Comment (test code = 15655-7) NO EDTA PLT CLUMP S SEEN [facility] CenterWhite Blood Qkkys1248-89-18 06:36:00* Test Item Value Reference Range Interpretation Comments White Blood Count (test code = 6690-2) 9.90 4.8-10.8 [facility] CenterRed Blood Tygcd4670-72-98 06:36:00* Test Item Value Reference Range Interpretation Comments Red Blood Count (test code = 789-8) 2.93 3.6-5.1 L [facility] CenterHemoglobin2020-03-05 06:36:00* Test Item Value Reference Range Interpretation Comments Hemoglobin (test code = 20925-1) 8.4 12.0-16.0 L [facility] CenterHematocrit2020-03-05 06:36:00* Test Item Value Reference Range Interpretation Comments Hematocrit (test code = 4544-3) 30.8 34.2-44.1 L [facility] CenterMean Corpuscular Mwqajd2481-75-19 06:36:00* Test Item Value Reference Range Interpretation Comments Mean Corpuscular Volume (test code = 787-2) 105.1 81-99 H [facility] CenterMean Corpuscular Zksnfpvftv9620-32-93 06:36:00* Test Item Value Reference Range Interpretation Comments Mean Corpuscular Hemoglobin (test code = 785-6) 28.7 28-32 [facility] CenterMean Corpuscular Hemoglobin Concent 2019-07-03 06:36:00* Test Item Value Reference Range Interpretation Comments Mean Corpuscular Hemoglobin Concent (test code = 786-4) 27.3 31-35 L [facility] CenterRed Cell Distribution Wkoyl0228-14-95 06:36:00* Test Item Value Reference Range Interpretation Comments Red Cell Distribution Width (test code = 85781-4) 15.8 11.7 -14.4 H [facility] CenterPlatelet Wlmia7573-45-58 06:36:00* Test Item Value Reference Range Interpretation Comments Platelet Count (test code = 777-3) 195 140-360 [facility] CenterNeutrophils (%) (Auto)2019-07-03 06:36:00 * Test Item Value Reference Range Interpretation Comments Neutrophils (%) (Auto) (test code = 22188-9) 63.1 38.7-80.0 [facility] CenterLymphocytes (%) (Auto)2019-07-03 06:36:00 * Test Item Value Reference Range Interpretation Comments Lymphocytes (%) (Auto) (test code = 736-9) 27.2 18.0-39.1 [facility] CenterMonocytes (%) (Auto)2019-07-03 06:36:00* Test Item Value Reference Range Interpretation Comments Monocytes (%) (Auto) (test code = 5905-5) 5.9 4.4-11.3 [facility] CenterEosinophils (%) (Auto)2019-07-03 06:36:00 * Test Item Value Reference Range Interpretation Comments Eosinophils (%) (Auto) (test code = 713-8) 2.4 0.0-6.0 [facility] CenterBasophils (%) (Auto)2019-07-03 06:36:00* Test Item Value Reference Range Interpretation Comments Basophils (%) (Auto) (test code = 706-2) 0.5 0.0-1.0 [facility] CenterIM GRANULOCYTES %2019-07-03 06:36:00* Test Item Value Reference Range Interpretation Comments IM GRANULOCYTES % (test code = IM GRANULOCYTES %) 0.9 0.0- 1.0 [facility] CenterNeutrophils # (Auto)2019-07-03 06:36:00* Test Item Value Reference Range Interpretation Comments Neutrophils # (Auto) (test code = 751-8) 6.3 2.1-6.9 [facility] CenterLymphocytes # (Auto)2019-07-03 06:36:00* Test Item Value Reference Range Interpretation Comments Lymphocytes # (Auto) (test code = 18144-1) 2.7 1.0-3.2 [facility] CenterMonocytes # (Auto)2019-07-03 06:36:00* Test Item Value Reference Range Interpretation Comments Monocytes # (Auto) (test code = 742-7) 0.6 0.2-0.8 [facility] CenterEosinophils # (Auto)2019-07-03 06:36:00* Test Item Value Reference Range Interpretation Comments Eosinophils # (Auto) (test code = 711-2) 0.2 0.0-0.4 [facility] CenterBasophils # (Auto)2019-07-03 06:36:00* Test Item Value Reference Range Interpretation Comments Basophils # (Auto) (test code = 704-7) 0.1 0.0-0.1 [facility] CenterAbsolute Immature Granulocyte (auto 2019-07-03 06:36:00* Test Item Value Reference Range Interpretation Comments Absolute Immature Granulocyte (auto (liz t code = Absolute Immature Granulocyte (auto) 0.09 0-0.1 [facility] CenterClostridium Difficile Toxin A & B 2019-07-02 13:47:00* Test Item Value Reference Range Interpretation Comments Clostridium Difficile Toxin A & B (test code = 533595887) POSI TIVE NEGATIVE H Results called to Shavon Bella at 1346 on 07/02/19 by Daniel Young. RB OK.Results faxed to infection control at 1346 on 07/02/19 by Daniel Young.Testing on stool aspirate specimens is outside photographic lithographer claims since specimen type not valida wander on this assay.[facility] CenterVitamin B12 Level 2019-07-02 07:18:00* Test Item Value Reference Range Interpretation Comments Vitamin B12 Level (test code = 55278-4) 878 213-816 H [facility] CenterFerritin2020-03-04 06:54:00* Test Item Value Reference Range Interpretation Comments Ferritin (test code = 2276-4) 256.41 4.63-204.00 H [facility] CenterIron Ibylz8120-62-64 06:42:00* Test Item Value Reference Range Interpretation Comments Iron Level (test code = 2498-4) 31 50-170 L [facility] CenterTransferrin2020-03-04 06:42:00* Test Item Value Reference Range Interpretation Comments Transferrin (test code = 3034-6) < 70 180-382 L [facility] CenterPercent Reticulocyte Mvddq8519-05-74 06:19:00* Test Item Value Reference Range Interpretation Comments Percent Reticulocyte Count (test code = 24519-0) 1.5 0.8-2 .2 [facility] CenterUrine Dmgsgcmtif6807-72-55 03:14:00* Test Item Value Reference Range Interpretation Comments Urine Creatinine (test code = 2161-8) 39.91 47-110 L [facility] CenterUrine Protein/Creatinine Amdzt3922-36-64 03:14:00* Test Item Value Reference Range Interpretation Comments Urine Protein/Creatinine Ratio (test code = 54012-9) 0.00 [facility] CenterUrine Random Total Jtazltx9328-96-25 02:41:00* Test Item Value Reference Range Interpretation Comments Urine Random Total Protein (test code = 2888-6) 15.0 1-14 H [facility] CenterUrine QMI6427-28-93 02:23:00* Test Item Value Reference Range Interpretation Comments Urine WBC (test code = 5821-4) >50 0-5 H [facility] CenterUrine ZGM7021-52-91 02:23:00* Test Item Value Reference Range Interpretation Comments Urine RBC (test code = 04717-5) 6-10 0-5 H [facility] CenterUrine Ptnewaqh2993-60-21 02:23:00* Test Item Value Reference Range Interpretation Comments Urine Bacteria (test code = 56519-8) MANY NONE H [facility] CenterUrine Epithelial Japdl3775-06-98 02:23:00 * Test Item Value Reference Range Interpretation Comments Urine Epithelial Cells (test code = 27463-0) FEW NONE [facility] CenterUrine Bsclw6193-42-36 02:15:00* Test Item Value Reference Range Interpretation Comments Urine Color (test code = 5778-6) YELLOW YELLOW [facility] CenterUrine Gphhbal1511-17-56 02:15:00* Test Item Value Reference Range Interpretation Comments Urine Clarity (test code = 98744-9) CLOUDY CLEAR H [facility] CenterUrine Specific Khygoiu5129-63-51 02:15:00 * Test Item Value Reference Range Interpretation Comments Urine Specific [place] (test code = 5811-5) 1.020 1.010-1.02 5 [facility] CenterUrine tU4507-94-57 02:15:00* Test Item Value Reference Range Interpretation Comments Urine pH (test code = 25496-4) 5 5-7 [facility] CenterU[facility] Leukocyte Ogubvgvi3223-60-72 02:15:00* Test Item Value Reference Range Interpretation Comments Urine Leukocyte Esterase (test code = 5799-2) 2+ NEGATIVE [facility] Xuobrxf8417-84-87 02:15:00* Test Item Value Reference Range Interpretation Comments Urine Nitrite (test code = 96899-1) POSITIVE NEGATIVE [facility] Clinic[facility] Xonczwz2519-42-57 02:15:00* Test Item Value Reference Range Interpretation Comments Urine Protein (test code = 5804-0) TRACE NEGATIVE [facility] Glucose (UA)2019-07-02 02:15:00* Test Item Value Reference Range Interpretation Comments Urine Glucose (UA) (test code = 2349-9) NEGATIVE NEGATIVE [facility] CenterUrine Tfqejkf7171-36-36 02:15:00* Test Item Value Reference Range Interpretation Comments Urine Ketones (test code = 90522-4) NEGATIVE NEGATIVE [facility] CenterUrine Krodwmikxtep1681-63-27 02:15:00* Test Item Value Reference Range Interpretation Comments Urine Urobilinogen (test code = 51739-7) 0.2 0.2-1 [facility] CenterUrine Lplivkbdi4090-81-14 02:15:00* Test Item Value Reference Range Interpretation Comments Urine Bilirubin (test code = 1977-6) NEGATIVE NEGATIVE [facility] CenterUrine Urmxj5885-23-46 02:15:00* Test Item Value Reference Range Interpretation Comments Urine Blood (test code = 38100-7) NEGATIVE NEGATIVE [facility] CenterTotal Vpgmrxchp0841-35-43 08:26:00* Test Item Value Reference Range Interpretation Comments Total Bilirubin (test code = 1975-2) 0.2 0.2-1.2 [facility] CenterAspartate Amino Transf (AST/SGOT) 2019-07-01 08:26:00* Test Item Value Reference Range Interpretation Comments Aspartate Amino Transf (AST/SGOT) (test code = Aspartate Amino Transf (AST/SGOT)) 11 5-34 [facility] CenterAlanine Aminotransferase (ALT/SGPT) 2019-07-01 08:26:00* Test Item Value Reference Range Interpretation Comments Alanine Aminotransferase (ALT/SGPT) (test code = 1742-6) < 6 0-55 [facility] CenterTotal Spsipdv0770-85-06 08:26:00* Test Item Value Reference Range Interpretation Comments Total Protein (test code = 2885-2) 4.4 6.5-8.1 L [facility] CenterAlbumin2020-03-03 08:26:00* Test Item Value Reference Range Interpretation Comments Albumin (test code = 1751-7) 1.6 3.5-5.0 L [facility] CenterGlobulin2020-03-03 08:26:00* Test Item Value Reference Range Interpretation Comments Globulin (test code = 12258-1) 2.8 2.3-3.5 [facility] CenterAlbumin/Globulin Hwtde0761-57-05 08:26:00 * Test Item Value Reference Range Interpretation Comments Albumin/Globulin Ratio (test code = 1759-0) 0.6 0.8-2.0 L [facility] CenterAlkaline Hehhdfyfgge9579-21-59 08:26:00* Test Item Value Reference Range Interpretation Comments Alkaline Phosphatase (test code = 6768-6) 81 40-150 [facility] CenterLipase2020-03-02 18:25:00* Test Item Value Reference Range Interpretation Comments Lipase (test code = 3040-3) 9 8-78 [facility] CenterCT ABDOMEN/PELVIS DK4529-05-55 16:25:00 [facility] [address] [address] Patient Name: IQRA MATTHEW MR #: [id number] : 1950 Age/Sex: 68/F Req #: [id number] Adm Physician: Ordered by: JASON WATSON DO Report #: [id number] Location: ER Room/Bed: Procedure: [id number] CT/C T ABDOMEN/PELVIS WO Exam Date: 06/30/19 [...] ductal dilatation or peripancreatic inflammatory stranding. The [place] kidneys are atrophic. There is a small [...] 4:34 PM Dictated By: DANIEL MULLIGAN MD 1633 Transcribed By: ALEKS on 06/30/19 1634 COPY TO: JASNO WATSON DO CT ABDOMEN/PELVIS [id number] 00:41:00 [place] [address] Patient Name: IQRA MATTHEW MR #: [id number] : 1950 Age/Sex: 68/F Req #: [id number] Adm Physician: Ordered by: SOPHIE DICKEY DO Report #: [id number] Location: ER Room/Bed: Procedure: [id number] CT/CT ABDOMEN/PELVIS W Exam Date: Exam Time: [...] . ADRENALS: No adrenal nodules. KIDNEYS/URETERS: Atrophic [place] kidn eys. Small cyst of the [place] right kidney. Left lower quadrant transplant kid [...] domenica perforation or drainable fluid collection. Atrophic [place] kidneys with le ft lower quadrant transplant kidney as detailed above. Atherosclerotic va scular disease. 3 mm nodule in the lateral segment of the right lower lobe may be assessed for stability by CT scan of the chest without contrast in one year. Signed by: Dr. Ryan aHndy M.D. on 06/27/2019 12:55 AM Dicta wander By: RYAN HANDY MD Transcribed By: ALEKS on 06/27/1954 COPY TO: SOPHIE DICKEY DO Creatine Kinase [id number] 22:39:00* Test Item Value Reference Range Interpretation Comments Creatine Kinase MB (test code = 41889-5) 0.40 0-5.0 [place] [id number] 22:39:00* Test Item Value Reference Range Interpretation Comments Troponin I (test code = DGD9710) < 0.001 0-0.300 [facility] CenterCreat[facility] Kinase [id number] 22:39:00* Test Item Value Reference Range Interpretation Comments Creatine Kinase MB (test code = 97766-2) 0.40 0-5.0 [place] [id number] 22:39:00* Test Item Value Reference Range Interpretation Comments Troponin I (test code = LYO6090) < 0.001 0-0.300 [facility] Nmqkh9122-51-13 22:24:00* Test Item Value Reference Range Interpretation Comments Sodium Level (test code = 2951-2) 137 136-145 [facility] CenterPotassium Lfaiq6780-36-11 22:24:00* Test Item Value Reference Range Interpretation Comments Potassium Level (test code = 2823-3) 5.0 3.5-5.1 [facility] CenterChloride Smmcw4516-03-68 22:24:00* Test Item Value Reference Range Interpretation Comments Chloride Level (test code = 2075-0) 110 98-107 H [facility] CenterCarbon Dioxide Zxvgx4127-76-83 22:24:00* Test Item Value Reference Range Interpretation Comments Carbon Dioxide Level (test code = 2028-9) 22 - [facility] CenterAnion [id number] 22:24:00* Test Item Value Reference Range Interpretation Comments Anion Gap (test code = 69748-8) 10.0 8-16 [facility] CenterBlood Urea Fpuqfowj9497-60-50 22:24:00* Test Item Value Reference Range Interpretation Comments Blood Urea Nitrogen (test code = 3094-0) 24 7- [facility] CenterCreatinine2020-02-27 22:24:00* Test Item Value Reference Range Interpretation Comments Creatinine (test code = 2160-0) 1.43 0.57-1.11 H [facility] CenterBUN/Creatinine Lxujd3105-03-21 22:24:00* Test Item Value Reference Range Interpretation Comments BUN/Creatinine Ratio (test code = 3097-3) 17 - [facility] CenterEstimat Glomerular Filtration Rate 2019-06-26 22:24:00* Test Item Value Reference Range Interpretation Comments Estimat Glomerular Filtration Rate (test code = 441289471) 36 >60 L Ranges were taken from the National Kidney Disease Education Program and the [facility] literature.Reference ranges:60 or greater: Fkmjph74-03 ( for 3 consecutive months): Chronic kidney disease 15 or less: Kidney failureVal [facility]de [facility] Medical CenterGlucose Ehsog8832-91-74 22:24:00* Test Item Value Reference Range Interpretation Comments Glucose Level (test code = BKT0490) 126 74-118 H [facility] CenterCalcium Wpsgy2166-30-24 22:24:00* Test Item Value Reference Range Interpretation Comments Calcium Level (test code = 86415-8) 8.0 8.4-10.2 L [facility] CenterTotal Wfpjppeup4949-52-65 22:24:00* Test Item Value Reference Range Interpretation Comments Total Bilirubin (test code = 1975-2) 0.3 0.2-1.2 [facility] CenterAspartate Amino Transf (AST/SGOT) 2019-06-26 22:24:00* Test Item Value Reference Range Interpretation Comments Aspartate Amino Transf (AST/SGOT) (test code = Aspartate Amino Transf (AST/SGOT)) 10 5-34 [facility] CenterAlanine Aminotransferase (ALT/SGPT) 2019-06-26 22:24:00* Test Item Value Reference Range Interpretation Comments Alanine Aminotransferase (ALT/SGPT) (test code = 1742-6) < 6 0-55 [facility] CenterTotal Ufcvfss0341-78-72 22:24:00* Test Item Value Reference Range Interpretation Comments Total Protein (test code = 2885-2) 5.8 6.5-8.1 L [facility] CenterAlbumin2020-02-27 22:24:00* Test Item Value Reference Range Interpretation Comments Albumin (test code = 1751-7) 2.1 3.5-5.0 L [facility] CenterGlobulin2020-02-27 22:24:00* Test Item Value Reference Range Interpretation Comments Globulin (test code = 88797-3) 3.7 2.3-3.5 H [facility] CenterAlbumin/Globulin Qgcfm8546-71-59 22:24:00 * Test Item Value Reference Range Interpretation Comments Albumin/Globulin Ratio (test code = 1759-0) 0.6 0.8-2.0 L [facility] CenterAlkaline Zvtupwvtpfg7302-38-55 22:24:00* Test Item Value Reference Range Interpretation Comments Alkaline Phosphatase (test code = 6768-6) 101 40-150 [facility] CenterCreatine Dhltfa0521-47-29 22:24:00* Test Item Value Reference Range Interpretation Comments Creatine Kinase (test code = 2157-6) 11 29-168 L [facility] CenterLipase2020-02-27 22:24:00* Test Item Value Reference Range Interpretation Comments Lipase (test code = 3040-3) 5 8-78 L [facility] CenterCreatine Kwbcvi4800-17-42 22:24:00* Test Item Value Reference Range Interpretation Comments Creatine Kinase (test code = 2157-6) 11 29-168 L [facility] CenterWhite Blood Smmdg2049-44-52 22:12:00* Test Item Value Reference Range Interpretation Comments White Blood Count (test code = 6690-2) 9.12 4.8-10.8 [facility] CenterRed Blood Idqto5173-88-03 22:12:00* Test Item Value Reference Range Interpretation Comments Red Blood Count (test code = 789-8) 3.60 3.6-5.1 [facility] CenterHemoglobin2020-02-27 22:12:00* Test Item Value Reference Range Interpretation Comments Hemoglobin (test code = 40340-4) 10.2 12.0-16.0 L [facility] CenterHematocrit2020-02-27 22:12:00* Test Item Value Reference Range Interpretation Comments Hematocrit (test code = 4544-3) 34.0 34.2-44.1 L [facility] CenterMean Corpuscular Dvulvg6513-61-61 22:12:00* Test Item Value Reference Range Interpretation Comments Mean Corpuscular Volume (test code = 787-2) 94.4 81-99 [facility] CenterMean Corpuscular Vvetdglwhr0979-09-87 22:12:00* Test Item Value Reference Range Interpretation Comments Mean Corpuscular Hemoglobin (test code = 785-6) 28.3 28-32 [facility] CenterMean Corpuscular Hemoglobin Concent 2019-06-26 22:12:00* Test Item Value Reference Range Interpretation Comments Mean Corpuscular Hemoglobin Concent (test code = 786-4) 30.0 31-35 L [facility] CenterRed Cell Distribution Fzmcl5311-34-76 22:12:00* Test Item Value Reference Range Interpretation Comments Red Cell Distribution Width (test code = 28458-1) 15.4 11.7 -14.4 H [facility] CenterPlatelet Rddwb5689-41-76 22:12:00* Test Item Value Reference Range Interpretation Comments Platelet Count (test code = 777-3) 375 140-360 H [facility] CenterNeutrophils (%) (Auto)2019-06-26 22:12:00 * Test Item Value Reference Range Interpretation Comments Neutrophils (%) (Auto) (test code = 88513-9) 67.2 38.7-80.0 [facility] CenterLymphocytes (%) (Auto)2019-06-26 22:12:00 * Test Item Value Reference Range Interpretation Comments Lymphocytes (%) (Auto) (test code = 736-9) 24.8 18.0-39.1 [facility] CenterMonocytes (%) (Auto)2019-06-26 22:12:00* Test Item Value Reference Range Interpretation Comments Monocytes (%) (Auto) (test code = 5905-5) 5.3 4.4-11.3 [facility] CenterEosinophils (%) (Auto)2019-06-26 22:12:00 * Test Item Value Reference Range Interpretation Comments Eosinophils (%) (Auto) (test code = 713-8) 2.0 0.0-6.0 [facility] CenterBasophils (%) (Auto)2019-06-26 22:12:00* Test Item Value Reference Range Interpretation Comments Basophils (%) (Auto) (test code = 706-2) 0.4 0.0-1.0 [facility] CenterIM GRANULOCYTES %2019-06-26 22:12:00* Test Item Value Reference Range Interpretation Comments IM GRANULOCYTES % (test code = IM GRANULOCYTES %) 0.3 0.0- 1.0 [facility] CenterNeutrophils # (Auto)2019-06-26 22:12:00* Test Item Value Reference Range Interpretation Comments Neutrophils # (Auto) (test code = 751-8) 6.1 2.1-6.9 [facility] CenterLymphocytes # (Auto)2019-06-26 22:12:00* Test Item Value Reference Range Interpretation Comments Lymphocytes # (Auto) (test code = 26833-7) 2.3 1.0-3.2 [facility] CenterMonocytes # (Auto)2019-06-26 22:12:00* Test Item Value Reference Range Interpretation Comments Monocytes # (Auto) (test code = 742-7) 0.5 0.2-0.8 [facility] CenterEosinophils # (Auto)2019-06-26 22:12:00* Test Item Value Reference Range Interpretation Comments Eosinophils # (Auto) (test code = 711-2) 0.2 0.0-0.4 [facility] CenterBasophils # (Auto)2019-06-26 22:12:00* Test Item Value Reference Range Interpretation Comments Basophils # (Auto) (test code = 704-7) 0.0 0.0-0.1 [facility] CenterAbsolute Immature Granulocyte (auto 2019-06-26 22:12:00* Test Item Value Reference Range Interpretation Comments Absolute Immature Granulocyte (auto (liz t code = Absolute Immature Granulocyte (auto) 0.03 0-0.1 [facility] CenterGLUBED2019-12-31 12:25:00* Test Item Value Reference Range Interpretation Comments GLUBED (test code = GLUBED) 160 MG/DL 70-110 H Performed by certified tower loader operator at [facility] UBIMOZ3278-49-88 08:51:00* Test Item Value Reference Range Interpretation Comments GLUBED (test code = GLUBED) 138 MG/DL 70-110 H Performed by certified tower loader operator at [facility] CBC W/AUTO BYTO6027-75-96 07:45:00* Test Item Value Reference Range Interpretation [...] (test code = MDIFF) NO BASIC METABOLIC RTJUC2307-65-71 05:41:00* Test Item Value Reference Range Interpretation [...] code = CA) 7.5 mg/dL 8.0-10.5 L UUUWEEIJLXW7371-43-66 05:41:00* Test Item Value Reference Range Interpretation Comments PHOSPHOROUS (test code = PHOS) 2.8 MG/DL 2.5-4.9 N KTOESIQMP6476-45-28 05:41:00* Test Item Value Reference Range Interpretation Comments MAGNESIUM (test code = MAG) 1.80 mg/dL 1.8-2.4 N [id number] 05:19:00* Test Item Value Reference Range Interpretation Comments GLUBED (test code = GLUBED) 138 MG/DL 70-110 H Performed by certified tower loader operator at [facility] WFLQAR1567-14-02 18:03:00* Test Item Value Reference Range Interpretation Comments GLUBED (test code = GLUBED) 161 MG/DL 70-110 H Performed by certified tower loader operator at [facility] JKFCGI6822-98-41 10:36:00* Test Item Value Reference Range Interpretation Comments GLUBED (test code = GLUBED) 96 MG/DL 70-110 N Performed by certified tower loader operator at [facility] CBC W/AUTO AYGB6156-51-70 08:46:00* Test Item Value Reference Range Interpretation [...] (test code = MDIFF) NO BASIC METABOLIC KQNAB6511-28-84 08:19:00* Test Item Value Reference Range Interpretation [...] code = CA) 8.1 mg/dL 8.0-10.5 N [id number] 08:19:00* Test Item Value Reference Range Interpretation Comments PHOSPHOROUS (test code = PHOS) 2.6 MG/DL 2.5-4.9 N [id number] 08:19:00* Test Item Value Reference Range Interpretation Comments MAGNESIUM (test code = MAG) 1.80 mg/dL 1.8-2.4 N [id number] 07:31:00* Test Item Value Reference Range Interpretation Comments GLUBED (test code = GLUBED) 134 MG/DL 70-110 H Performed by certified tower loader operator at [facility] [id number] 07:31:00* Test Item Value Reference Range Interpretation Comments GLUBED (test code = GLUBED) 124 MG/DL 70-110 H Performed by certified tower loader operator at [facility] TOTAL IRON BINDING [id number] 16:14:00* Test Item Value Reference Range Interpretation Comments SERUM IRON (test code = IRON) 22 mcg/dL 35-150 L TOTAL IRON BINDING CAPACITY (test code = TIBC) 91 mcg/dL 260-445 L UIBC (test code = UIBC) 69 mcg/dL IRON SATURATION (test code = FESAT) 24.2 % 14-34 N VITAMIN [id number] 16:14:00* Test Item Value Reference Range Interpretation Comments VITAMIN B12 (test code = VITB12) 988 pg/mL 193-986 H [id number] 16:14:00* Test Item Value Reference Range Interpretation Comments FERRITIN (test code = JASIEL) 202.9 ng/mL 11.0-306.8 N VITAMIN D 68-[id number] 16:14:00* Test Item Value Reference Range Interpretation Comments VITAMIN D 25-HYDROXY (test code = VITD25) 18.5 ng/mL 30-100 L SPECIMEN 1+ HEMOLYZED.Results known to be adversely affected by hemolysis are: Potassium Magnesium LDH Phosphorus TOTAL IRON BINDING [id number] 16:12:00* Test Item Value Reference Range Interpretation Comments SERUM IRON (test code = IRON) 22 mcg/dL 35-150 L TOTAL IRON BINDING CAPACITY (test code = TIBC) 91 mcg/dL 260-445 L UIBC (test code = UIBC) 69 mcg/dL IRON SATURATION (test code = FESAT) 24.2 % 14-34 N VITAMIN [id number] 16:12:00* Test Item Value Reference Range Interpretation Comments VITAMIN B12 (test code = VITB12) 988 pg/mL 193-986 H [id number] 16:12:00* Test Item Value Reference Range Interpretation Comments FERRITIN (test code = JASIEL) 202.9 ng/mL 11.0-306.8 N VITAMIN D 66-[id number] 16:12:00* Test Item Value Reference Range Interpretation Comments VITAMIN D 25-HYDROXY (test code = VITD25) ng/mL 30-100 [id number] 14:10:00* Test Item Value Reference Range Interpretation Comments GLUBED (test code = GLUBED) 101 MG/DL 70-110 N Performed by certified tower loader operator at [facility] BASIC METABOLIC [id number] 11:00:00* Test Item Value Reference Range Interpretation [...] CA) 7.2 mg/dL 8.0-10.5 L BASIC METABOLIC [id number] 10:57:00* Test Item Value Reference Range Interpretation [...] CA) 7.2 mg/dL 8.0-10.5 L LACTIC ACID [id number] 10:46:00* Test Item Value Reference Range Interpretation Comments LACTIC ACID POC (test code = LACTP) 1.6 MMOL/L 0.90-1.70 N Performed by certified tower loader operator at [facility] CHEMISTRY 8 [id number] 10:46:00* Test Item Value Reference Range Interpretation [...] code = GFRBED) 25 ML/MIN CHEMISTRY 8 [id number] 10:46:00* Test Item Value Reference Range Interpretation Comments ISTAT-SODIUM (test code = NAP) 124 MMOL/L 134-147 L ISTAT-POTASSIUM (test code = KP) 5.0 MMOL/L 3.4-5.0 N ISTAT-CHLORIDE (test code = CLP) 95 MMOL/L 100-108 L Performed by certified tower loader operator at [facility] ISTAT CARBON DIOXIDE (test code = ISTAT-CO2) 20.0 mmol/L 21-33 L ISTAT CALCIUM IONIZED (test code = ISTAT-IQRA) 1.09 MG/DL 1.12-1.3 2 L ISTAT-GLUCOSE (test code = GLUP) 180 MG/DL 70-110 H ISTAT-BUN (test code = BUNP) 54 MG/DL 7-18 H BEDSIDE CREATININE (test code = CREATBED) 2.1 MG/DL 0.6-1.3 H GLOMERULAR FILTRATION RATE POC (test code = GFRBED) 25 ML/MIN CBC W/AUTO [id number] 10:40:00* Test Item Value Reference Range Interpretation [...] REQUIRED (test code = MDIFF) NO TROPONIN-I [id number] 10:33:00* Test Item Value Reference Range Interpretation Comments TROPONIN-I RAPID (test code = TROPIRAP) 0.00 ng/mL 0.00-0.08 N Performed by certified tower loader operator at [facility] Negative: <= 0.08 Positive: >= 0.09An elevated troponin value alone is not sufficient todiagnose a myocardial infarction. Rather, the patient sclinical presentation (history, physical exam) and ECGshould be used in conjunction with troponin in thediagnostic evaluation of suspected myocardial infarction. Aserial sampling protocol is recommended to facilitate the identification of temporal changes in troponin levels characteristic of NE. HEPATIC FUNCTION [id number] 18:25:00* Test Item Value Reference Range Interpretation [...] code = ALKP) 92 IUnit/L 20-125 N [id number] 18:25:00* Test Item Value Reference Range Interpretation Comments LIPASE (test code = LIP) 49 IUnit/L 73-393 L [id number] 18:25:00* Test Item Value Reference Range Interpretation Comments MAGNESIUM (test code = MAG) 1.70 mg/dL 1.8-2.4 L LACTIC ACID [id number] 18:18:00* Test Item Value Reference Range Interpretation Comments LACTIC ACID POC (test code = LACTP) 1.6 MMOL/L 0.90-1.70 N Performed by certified tower loader operator at [facility] PROTHROMBIN [id number] 18:18:00* Test Item Value Reference Range Interpretation [...] Infarction (to prevent recurrent infarct). THROMBOPLASTIN TIME [id number] 18:18:00* Test Item Value Reference Range Interpretation Comments THROMBOPLASTIN TIME PARTIAL (test code = PTT) 26.5 Seconds 25.0-39. 5 N Therapeutic Range: 50.4 - 88.3 Seconds Effective 08/13/2018 CHEMISTRY 8 [id number] 18:17:00* Test Item Value Reference Range Interpretation [...] code = GFRBED) 25 ML/MIN CHEMISTRY 8 [id number] 18:17:00* Test Item Value Reference Range Interpretation Comments ISTAT-SODIUM (test code = NAP) 124 MMOL/L 134-147 L ISTAT-POTASSIUM (test code = KP) 5.0 MMOL/L 3.4-5.0 N ISTAT-CHLORIDE (test code = CLP) 95 MMOL/L 100-108 L Performed by certified tower loader operator at [facility] ISTAT CARBON DIOXIDE (test code = ISTAT-CO2) 20.0 mmol/L 21-33 L ISTAT CALCIUM IONIZED (test code = ISTAT-IQRA) 1.09 MG/DL 1.12-1.3 2 L ISTAT-GLUCOSE (test code = GLUP) 180 MG/DL 70-110 H ISTAT-BUN (test code = BUNP) 54 MG/DL 7-18 H BEDSIDE CREATININE (test code = CREATBED) 2.1 MG/DL 0.6-1.3 H GLOMERULAR FILTRATION RATE POC (test code = GFRBED) 25 ML/MIN TROPONIN-I [id number] 18:16:00* Test Item Value Reference Range Interpretation Comments TROPONIN-I RAPID (test code = TROPIRAP) 0.00 ng/mL 0.00-0.08 N Performed by certified tower loader operator at [facility] Negative: <= 0.08 Positive: >= 0.09An elevated troponin value alone is not sufficient todiagnose a myocardial infarction. Rather, the patient sclinical presentation (history, physical exam) and ECGshould be used in conjunction with troponin in thediagnostic evaluation of suspected myocardial infarction. Aserial sampling protocol is recommended to facilitate the identification of temporal changes in troponin levels characteristic of NE. - CT HEAD/BRAIN W/O [id number] 18:12:00 Name: IQRA MATTHEW [facility] : 1950 Age/S: 68 / F [address] [place] [address] Unit #: [id number] Loc: [place] [address] Phys: Forest Bell MD Acct: [id number] Dis Date: Status: REG ER PHONE #: [phone] Exam Date: 04/26/2019 1748 FAX #: [phone] Reason: weakness EXAMS: CPT CODE: [id number] CT HEAD/BRAIN W/O CONT [address] HEAD INDICATION: weakness. TECHNIQUE: Unenhanced [...] 1 Signed Report (CONTINUED) Name: IQRA MATTHEW [facility] B: 1950 Age/S: 68 / F [address] [place] [address] Unit #: [id number] Loc: [place] [address] Phys: Forest Bell MD Acct: [id number] D is Date: Status: REG ER PHONE #: [phone] Exam Date: 04/26/2019 1748 FAX #: Reason: weakness EXAMS: CPT CODE: [id number] CT HEAD/BRAIN W/O CONT 25592 <Continued> changes. I cannot exclude posterior chamber hemorrhage in the left optic globe. 4. There are trace bilateral mastoid air cell effusions. at 1812 Reported and signed by: Jaime Chua D.O. CC: Tori Valdez Technologist:RT Mabel(R) CTDI: DLP: Trnscb Date/Time: 04/26/2019 (1811) t.JB33 Orig Print D/T: S: 04/26/2019 (1814) PAGE 2 Signed Report UA RFLX MICR CULT IF [id number] 18:11:00* Test Item Value Reference Range Interpretation [...] culture: Dysuria/FrequencySpecimen Description: CLEAN CATCH CBC W/AUTO [id number] 18:07:00* Test Item Value Reference Range Interpretation [...] DIFF REQUIRED (test code = MDIFF) NO [id number] 09:10:00* Test Item Value Reference Range Interpretation Comments TACROLIMUS (test code = TACRO) 4.5 ng/mL 2.0-20.0 Trough (immediately following transplant) 15.0 Trough (steady state, 2 weeks or more after transplant): 3.0 - 8.0 Detection Limit = 1.0 Performed by LC- MS/MS technology. This test was developed and its performance characteristics determined by [employer]. It has not been cleared or approved by the Food and Drug Administration.Performed At: [address], [place] [id number] Sanjai MD Ph:[phone] COMMENTS: PLEASE DRAW BEFORE GIVING AM [id number] 13:50:00* Test Item Value Reference Range Interpretation Comments GLUBED (test code = GLUBED) 158 MG/DL 70-110 H Performed by certified tower loader operator at [facility] BASIC METABOLIC [id number] 08:00:00* Test Item Value Reference Range Interpretation [...] code = CA) 7.2 mg/dL 8.0-10.5 L [id number] 08:00:00* Test Item Value Reference Range Interpretation Comments PHOSPHOROUS (test code = PHOS) 2.3 MG/DL 2.5-4.9 L [id number] 08:00:00* Test Item Value Reference Range Interpretation Comments MAGNESIUM (test code = MAG) 1.90 mg/dL 1.8-2.4 N [id number] 05:56:00* Test Item Value Reference Range Interpretation Comments GLUBED (test code = GLUBED) 144 MG/DL 70-110 H Performed by certified tower loader operator at [facility] [id number] 00:24:00* Test Item Value Reference Range Interpretation Comments GLUBED (test code = GLUBED) 200 MG/DL 70-110 H Performed by certified tower loader operator at [facility] [id number] 17:08:00* Test Item Value Reference Range Interpretation Comments GLUBED (test code = GLUBED) 261 MG/DL 70-110 H Performed by certified tower loader operator at [facility] [id number] 11:34:00* Test Item Value Reference Range Interpretation Comments GLUBED (test code = GLUBED) 165 MG/DL 70-110 H Performed by certified tower loader operator at [facility] BASIC METABOLIC [id number] 07:49:00* Test Item Value Reference Range Interpretation [...] code = CA) 7.3 mg/dL 8.0-10.5 L [id number] 07:49:00* Test Item Value Reference Range Interpretation Comments PHOSPHOROUS (test code = PHOS) 2.6 MG/DL 2.5-4.9 N [id number] 07:49:00* Test Item Value Reference Range Interpretation Comments MAGNESIUM (test code = MAG) 1.90 mg/dL 1.8-2.4 CALCIUM [id number] 07:49:00* Test Item Value Reference Range Interpretation Comments CALCIUM IONIZED (test code = IQRA) 1.17 MMOL/L 1.12-1.32 N VITAMIN D 08-[id number] 07:49:00* Test Item Value Reference Range Interpretation Comments VITAMIN D 25-HYDROXY (test code = VITD25) 19.9 ng/mL 30-100 L BASIC METABOLIC [id number] 07:30:00* Test Item Value Reference Range Interpretation [...] code = CA) 7.3 mg/dL 8.0-10.5 L [id number] 07:30:00* Test Item Value Reference Range Interpretation Comments PHOSPHOROUS (test code = PHOS) 2.6 MG/DL 2.5-4.9 N [id number] 07:30:00* Test Item Value Reference Range Interpretation Comments MAGNESIUM (test code = MAG) 1.90 mg/dL 1.8-2.4 CALCIUM [id number] 07:30:00* Test Item Value Reference Range Interpretation Comments CALCIUM IONIZED (test code = IQRA) 1.17 MMOL/L 1.12-1.32 N VITAMIN D 64-[id number] 07:30:00* Test Item Value Reference Range Interpretation Comments VITAMIN D 25-HYDROXY (test code = VITD25) ng/mL 30-100 CBC W/AUTO [id number] 07:28:00* Test Item Value Reference Range Interpretation [...] (test code = MDIFF) NO BASIC METABOLIC [id number] 07:18:00* Test Item Value Reference Range Interpretation [...] CALCIUM (test code = CA) mg/dL 8.0-10.5 [id number] 07:18:00* Test Item Value Reference Range Interpretation Comments PHOSPHOROUS (test code = PHOS) MG/DL 2.5-4.9 [id number] 07:18:00* Test Item Value Reference Range Interpretation Comments MAGNESIUM (test code = MAG) mg/dL 1.8-2.4 CALCIUM [id number] 07:18:00* Test Item Value Reference Range Interpretation Comments CALCIUM IONIZED (test code = IQRA) 1.17 MMOL/L 1.12-1.32 N VITAMIN D [id number] 07:18:00* Test Item Value Reference Range Interpretation Comments VITAMIN D 25-HYDROXY (test code = VITD25) ng/mL 30-100 [id number] 05:42:00* Test Item Value Reference Range Interpretation Comments GLUBED (test code = GLUBED) 108 MG/DL 70-110 N Performed by certified tower loader operator at [facility] [id number] 23:54:00* Test Item Value Reference Range Interpretation Comments GLUBED (test code = GLUBED) 134 MG/DL 70-110 H Performed by certified tower loader operator at [facility] [id number] 17:50:00* Test Item Value Reference Range Interpretation Comments GLUBED (test code = GLUBED) 175 MG/DL 70-110 H Performed by certified tower loader operator at [facility] [id number] 11:37:00* Test Item Value Reference Range Interpretation Comments GLUBED (test code = GLUBED) 130 MG/DL 70-110 H Performed by certified tower loader operator at [facility] BASIC METABOLIC [id number] 08:00:00* Test Item Value Reference Range Interpretation [...] code = CA) 5.7 mg/dL 8.0-10.5 LL [id number] 08:00:00* Test Item Value Reference Range Interpretation Comments PHOSPHOROUS (test code = PHOS) 2.3 MG/DL 2.5-4.9 L [id number] 08:00:00* Test Item Value Reference Range Interpretation Comments MAGNESIUM (test code = MAG) 1.30 mg/dL 1.8-2.4 L [id number] 06:21:00* Test Item Value Reference Range Interpretation Comments GLUBED (test code = GLUBED) 157 MG/DL 70-110 H Performed by certified tower loader operator at [facility] [id number] 00:21:00* Test Item Value Reference Range Interpretation Comments GLUBED (test code = GLUBED) 214 MG/DL 70-110 H Performed by certified tower loader operator at [facility] URINALYSIS [id number] 18:18:00* Test Item Value Reference Range Interpretation [...] MUCU) TRACE /LPF NONE SEEN UR PROTEIN [id number] 18:18:00* Test Item Value Reference Range Interpretation Comments UR PROTEIN RANDOM (test code = PROTU) 19 mg/dL Note: Change in UNITS of MEASUREMENT. The Reference Range and Method Performance specificationshave not been established for this fluid. The test resultshould be correlated into the clinical context forinterpretation. UR CREATININE [id number] 18:18:00* Test Item Value Reference Range Interpretation Comments UR CREATININE RANDOM (test code = CREATU) 56.7 mg/dL The Reference Range and Method Performance specificationshave not been established for this fluid. The test resultshould be correlated into the clinical context forinterpretation. URINALYSIS [id number] 18:08:00* Test Item Value Reference Range Interpretation [...] MUCU) TRACE /LPF NONE SEEN UR PROTEIN [id number] 18:08:00* Test Item Value Reference Range Interpretation Comments UR PROTEIN RANDOM (test code = PROTU) mg/dL UR CREATININE [id number] 18:08:00* Test Item Value Reference Range Interpretation Comments UR CREATININE RANDOM (test code = CREATU) mg/dL [id number] 18:08:00* Test Item Value Reference Range Interpretation Comments GLUBED (test code = GLUBED) 249 MG/DL 70-110 H Performed by certified tower loader operator at [facility] CBC W/AUTO [id number] 11:15:00* Test Item Value Reference Range Interpretation [...] REVIEWED, CONSISTENT WITH AUTO DIFF. CBC W/AUTO [id number] 11:15:00* Test Item Value Reference Range Interpretation [...] REVIEWED, CONSISTENT WITH AUTO DIFF. BASIC METABOLIC [id number] 10:37:00* Test Item Value Reference Range Interpretation [...] CA) 7.5 mg/dL 8.0-10.5 L BASIC METABOLIC [id number] 10:37:00* Test Item Value Reference Range Interpretation [...] CA) 7.5 mg/dL 8.0-10.5 L BASIC METABOLIC [id number] 10:33:00* Test Item Value Reference Range Interpretation [...] CA) 7.5 mg/dL 8.0-10.5 L BASIC METABOLIC [id number] 10:33:00* Test Item Value Reference Range Interpretation [...] CA) 7.5 mg/dL 8.0-10.5 L CBC W/AUTO [id number] 10:23:00* Test Item Value Reference Range Interpretation [...] MANUAL DIFF REQUIRED (test code = MDIFF) [id number] 06:29:00* Test Item Value Reference Range Interpretation Comments GLUBED (test code = GLUBED) 120 MG/DL 70-110 H Performed by certified tower loader operator at [facility] [id number] 00:26:00* Test Item Value Reference Range Interpretation Comments GLUBED (test code = GLUBED) 171 MG/DL 70-110 H Performed by certified tower loader operator at [facility] PROCALCITONIN (PCT)2019-03-04 20:11:00* Test Item Value Reference [...] if any concentrations <2 ng/mL are obtained. [id number] 19:54:00* Test Item Value Reference Range Interpretation Comments GLUBED (test code = GLUBED) 251 MG/DL 70-110 H Performed by certified tower loader operator at [facility] - CT ABD PELVIS W/O [id number] 17:35:00 Name: IQRA MATTHEW [facility] : 1950 Age/S: 68 / F [address] [place] [address] Blvd Unit #: [id number] Loc: [place] [address] Phys: Maximo Roblero MD Acct: [id number] Dis Date: Status: [facility] ER PHONE #: [phone] Exam Date: 03/04/2019 1711 FAX #: [phone] Reason: pelvic pain, diarrhea EXAMS: CPT CODE: [id number] CT ABD PELVIS W/O CONT 42614 CT ABDOMEN AND PELVIS WITHOUT CONTRAST INDICATION: [...] 1 Signed Report (CONTINUED) Name: IQRA MATTHEW [facility] : 1950 Age/S: 68 / F [address] Unit #: [id number] Loc: [place] [address] Phys: Maximo Roblero MD Acct: [id number] Dis Date: Status: REG ER PHONE #: [phone] Exam Date: 03/04/2019 1711 FAX #: [phone] Reason: pelvic pain, diarrhea EXAMS: CPT CODE: [id number] CT ABD PELVIS W/O CONT 64686 < Continued> There is symmetric moderately severe [...] 2 Signed Report (CONTINUED) Name: IQRA MATTHEW [facility] : 1950 Age/S: 68 / F [address] Unit #: [id number] Loc: [place] [address] Phys: Maximo Roblero MD Acct: [id number] Dis Date: Status: REG ER PHONE #: [phone] Exam Date: 03/04/2019 1711 FAX #: [phone] Reason: pelvic pain, diarrhea EXAMS: CPT CODE: [id number] CT ABD PELVIS W/O CONT 15568 < Continued> at 1735 Reported and signed by: Jaime Chua D.O. CC: Maximo Roblero MD Technologist:Mee Polk, RT(R) CTDI: DLP: Trnscb Date/Time: 03/04/2019 (173) [email or web address] Orig Print D/T: S: 03/04/2019 (3633) PAGE 3 Signed Report C REACTIVE [id number] 17:15:00* Test Item Value Reference Range Interpretation Comments C REACTIVE PROTEIN (test code = CRP) 217.0 MG/L 0.0-2.9 H CBC W/AUTO [id number] 17:11:00* Test Item Value Reference Range Interpretation [...] REVIEWED, CONSISTENT WITH AUTO DIFF. COMPREHENSIVE METABOLIC [id number] 17:09:00* Test Item Value Reference Range Interpretation [...] ALKP) 119 IUnit/L 20-125 N CBC W/AUTO [id number] 16:55:00* Test Item Value Reference Range Interpretation [...] MANUAL DIFF REQUIRED (test code = MDIFF) [[facility]] CBC (INCLUDES DIFF/PLT)2019-01-07 14:06:01* Test Item Value Reference Range Interpretation Comments WBC (test code = 6690-2) 8.1 {K/CMM} 3.7-10.4 RBC; Below Low Threshold (test code = 789-8) 3.42 {M/CMM} 4.20-5.40 Hgb; Below Low Threshold (test code = 718-7) 9.6 g/dl 12.0-16.0 Hct; Below Low Threshold (test code = 16956-8) 30.3 % 36.0-48 .0 MCV (test code = 787-2) 88.4 fL 80.0-98.0 MCH (test code = 785-6) 28.0 pg 27.0-31.0 MCHC; Below Low Threshold (test code = 786-4) 31.6 g/dl 32.0-36. 0 RDW; Above High Threshold (test code = 788-0) 17.7 % 11.5-14. 5 Platelet (test code = 13127-9) 273 {K/CMM} 133-450 Mean Platelet Volume (test code = 74873-7) 8.9 fL 7.4-10.4 [facility]] SED RATE BY MODIFIED [id number] 14:06:01* Test Item Value Reference Range Interpretation Comments Sedimentation Rate; Above High Threshold (test code = 98085-2) 6 4 {mm/hr} 0-20 [facility]] HEMOGLOBIN [id number] 14:06:01* Test Item Value Reference Range Interpretation Comments Hemoglobin A1c; Above High Threshold (test code = 4548-4) 6.1 % <=5.6 [facility]] [id number] 14:06:01* Test Item Value Reference Range Interpretation Comments Segmented Neutrophils (test code = 71381-6) 71.2 % 45.0-75.0 Monocytes (test code = 80108-5) 3.9 % 2.0-12.0 Lymphocytes (test code = 10736-8) 22.8 % 20.0-40.0 Eosinophils (test code = 03845-9) 2.1 % 0.0-4.0 Basophils (test code = 706-2) 0.0 % 0.0-1.0 Segs-Bands # (test code = 65741-3) 5.8 {K/CMM} 1.5-8.1 Lymphocytes # (test code = 55271-5) 1.9 {K/CMM} 1.0-5.5 Monocytes # (test code = 24312-3) 0.3 {K/CMM} 0.0-0.8 Eosinophils # (test code = 24787-7) 0.2 {K/CMM} 0.0-0.5 Basophils # (test code = 86413-5) 0.0 {K/CMM} 0.0-0.2 RBC Morphology (test code = RBC Morphology) Normal Normal Plt Morphology (test code = Plt Morphology) Normal Normal [facility]] [id number] 14:06:01* Test Item Value Reference Range Interpretation Comments Albumin Lvl; Below Low Threshold (test code = 1751-7) 2.8 g/dl 3.5-5.0 [facility]] C-REACTIVE [id number] 14:06:01* Test Item Value Reference Range Interpretation Comments CRP (test code = CRP) 63.8 mg/L <=2.9 [facility][U] XRAY KNEE 3 VWS LEFT [id number] 12:02:00 Images acquired, not reported on this accession number.[facility]
[2020-03-04] MEDS: MEROPENEM 1GM 100 ML IV SCH (20:49)
[2020-03-04] MEDS ORDERED: LACTATED RINGER'S 1,000 ML INJ SCH (21:00)
[2020-03-04] MEDS ORDERED: DEXTROSE 50% SYRINGE 50 ML IV PRN (21:00)
--- NOTE | 2020-03-04 21:25 | Diagnostic Imaging Report ---
X-ray 2 views of the left knee HISTORY: Left knee pain. COMPARISON: None available. FINDINGS/IMPRESSION: No acute fracture or dislocation. There are severe tricompartment osteoarthritic changes of left knee characterized by significant joint space narrowing, subchondral sclerosis, subchondral cystic changes and proliferative marginal osteophytes. There is bony loss of the proximal tibia particularly in the medial aspect. There is heterotopic ossification surround the soft tissues particularly in the medial aspect. Additionally, there is soft tissue swelling and subcutaneous emphysema on the lateral aspect of the distal thigh. There is extensive atherosclerotic calcification of the lower extremity vessels. Constellation of findings as detailed above likely reflect posttraumatic osteoarthritis or accelerated changes secondary to chronic joint infection. This can be confirmed with direct fluid sampling of the joint. Soft tissue swelling with subcutaneous emphysema in the distal lower thigh may reflect acute soft tissue infection or post-traumatic changes. Signed by: Laney Crisostomo MD on 03/04/2020 9:22 PM
[2020-03-04] MEDS: INSULIN REGULAR, HUMAN 100 UNIT/1 ML 3ML VIAL SQ SCH (21:44)
[2020-03-04] MEDS: SODIUM CHLORIDE 0.9% 1000ML 1,000 ML IV SCH (21:44)
[2020-03-05 05:51] LABS: BASOPHILS % 0.2 % (0.0-1.0); EOSINOPHILS # (AUTO) 0.1 (0.0-0.4); EOSINOPHILS % 1.2 % (0.0-6.0); HEMATOCRIT 34.6 % (34.2-44.1); HEMOGLOBIN 10.7 g/dL (12.0-16.0); LYMPHOCYTES # (AUTO) 1.8 (1.0-3.2); MEAN CORPUSCULAR HEMOGLOBIN 29.1 pg (28-32); MEAN CORPUSCULAR HGB CONC 30.9 g/dL (31-35); MONOCYTES # (AUTO) 0.6 (0.2-0.8); MONOCYTES % 6.8 % (4.4-11.3); NEUTROPHILS # (AUTO) 6.7 (2.1-6.9); NEUTROPHILS % 72.5 % (38.7-80.0); PLATELET COUNT 258 x10e3/uL (140-360); RED BLOOD COUNT 3.68 x10e6/uL (3.6-5.1); RED CELL DISTRIBUTION WIDTH 14.1 % (11.7-14.4)
[2020-03-05 06:05] LABS: ANION GAP 15.4 mmol/L (8-16); CALCIUM 9.2 mg/dL (8.4-10.2); CREATININE, SERUM 1.26 mg/dL (0.57-1.11); POTASSIUM 5.4 mmol/L (3.5-5.1)
[2020-03-05] MEDS: MEROPENEM 1GM 100 ML IV SCH ×3 (06:42→21:07)
--- NOTE | 2020-03-05 06:46 | NUR ---
report given to ally rose in full
[2020-03-05] MEDS: INSULIN REGULAR, HUMAN 100 UNIT/1 ML 3ML VIAL SQ SCH ×4 (06:48→21:33)
[2020-03-05] MEDS: SODIUM CHLORIDE 0.9% 1000ML 1,000 ML IV SCH ×2 (06:57→17:32)
--- NOTE | 2020-03-05 07:08 | NUR ---
covid swab done on previous shift
--- NOTE | 2020-03-05 09:02 | NUR ---
multiple updates to pt/fm.
--- NOTE | 2020-03-05 09:02 | NUR ---
Spoke with Dr. Perez at great length. Pt known well to he and Dr Duenas. Pt seen this week in office by Dr Perez, pt/spouse was instructed to have MRI of left knee/thigh done. This was verified with MRI and had not been done yet, per telephone order, stat MRI order placed after verified twice with Dr Perez and spoke with Hetal in MRI. Order also placed for consult of Dr. Howard Schneider per Dr Perez (rbvo twice). Updated pt/spouse. Also, all consults have been called. Called supervisor [facility] to inform of need for hospital bed for pt, Shaheen states he will look now to help pt.
--- NOTE | 2020-03-05 09:28 | NUR ---
hospital bed in room.
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
--- NOTE | 2020-03-05 10:43 | Diagnostic Imaging Report ---
MRI of the left femur without contrast. History: Wound infection. Osteomyelitis. Leg pain Technique: Multiplanar multisequence MRI of the left femur without contrast. Comparison: Radiographs 03/04/2020 Findings: Severe tricompartmental degenerative arthrosis in the knee which may be due to chronic posttraumatic change most pronounced in the medial compartment. Air/vacuum phenomenon is seen in the medial compartment. Apparent skin ulceration and blistering along the anterior distal femur with abnormal adjacent soft tissue edema. This could be due to cellulitis. No well-formed drainable fluid collection is seen. Suprapatellar effusion in the likely reactive. Diffuse muscle atrophy. The visualized neurovascular bundles are intact. Extensive skin thickening along the medial aspect of the thigh/femur with associated 14.0 x 6.4 x 3.8 cm heterogeneous signal intensity masslike fluid collection superficial to the musculature along the anterior lateral aspect of the femur/thigh. This is located immediately deep to the skin surface. This contains several foci of air. This is best seen on coronal image 3 through 8 and axial image 25 through 41. This collection communicates with the lateral aspect of the knee joint anteriorly. This collection also communicates with the anterior lateral distal thigh musculature which is best seen on axial image 27. No underlying bone marrow edema or cortical destruction is seen to suggest osteomyelitis. The patella appears to be surgically absent. Impression: Extensive skin thickening along the medial aspect of the thigh/femur with associated 14.0 x 6.4 x 3.8 cm heterogeneous signal intensity masslike fluid collection superficial to the musculature along the anterior lateral aspect of the femur/thigh. This is located immediately deep to the skin surface. This contains several foci of air. This is best seen on coronal image 3 through 8 and axial image 25 through 41. This collection communicates with the lateral aspect of the knee joint anteriorly. This collection also communicates with the anterior lateral distal thigh musculature which is best seen on axial image 27. No underlying bone marrow edema or cortical destruction is seen to suggest osteomyelitis. Signed by: Dr. Eulogio Corona M.D. on 03/05/2020 10:39 AM
--- NOTE | 2020-03-05 11:02 | NUR ---
Remy CROW SEEN PT IN ER AND SPOKE WITH SPOUSE
--- NOTE | 2020-03-05 12:34 | NUR ---
WOUND CARE NURSE HERE
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
[2020-03-05] MEDS ORDERED: KEFLEX500 MG (13:47)
[2020-03-05] MEDS ORDERED: NORVASC2.5 MG (13:47)
[2020-03-05 15:45] VITALS: BP 170/59
[2020-03-05 15:50] VITALS: BP 170/59
[2020-03-05] MEDS ORDERED: NON-FORMULARY MEDICATION (Ondansetron Hcl* (Zofran*) 4 MG) PO PRN (16:45)
[2020-03-05] MEDS ORDERED: ONDANSETRON HCL 4 MG ORAL DISINTEGRATING TAB PO PRN (16:45)
[2020-03-05] MEDS: TACROLIMUS 1 MG CAP PO SCH (17:32)
[2020-03-05] MEDS: CHOLESTYRAMINE 4 GM PACKET PO SCH (19:21)
[2020-03-05] MEDS: MYCOPHENOLATE MOFETIL 250 MG CAP PO SCH (19:21)
[2020-03-05 20:00] VITALS: BP 173/63
[2020-03-05 22:46] VITALS: BP 173/63
[2020-03-06] VITALS (8 sets, daily range): BP systolic 106–181; BP diastolic 57–79
[2020-03-06] MEDS: MEROPENEM 1GM 100 ML IV SCH ×3 (05:00→20:56)
[2020-03-06] MEDS: SODIUM CHLORIDE 0.9% 1000ML 1,000 ML IV SCH ×3 (05:00→23:33)
[2020-03-06 06:02] LABS: ANION GAP 13.4 mmol/L (8-16); CALCIUM 8.7 mg/dL (8.4-10.2); CREATININE, SERUM 1.02 mg/dL (0.57-1.11); POTASSIUM 4.4 mmol/L (3.5-5.1)
[2020-03-06] MEDS: INSULIN REGULAR, HUMAN 100 UNIT/1 ML 3ML VIAL SQ SCH ×4 (07:30→21:30)
[2020-03-06] MEDS ORDERED: FENTANYL CITRATE/PF 100MCG/2 ML INJ ONE ×2 (07:48→09:31)
[2020-03-06] MEDS ORDERED: NON-FORMULARY MEDICATION (Cholecalciferol (Vitamin D3) (Vitamin D3) 1 TAB) PO SCH (09:00)
[2020-03-06] MEDS: CHOLESTYRAMINE 4 GM PACKET PO SCH ×2 (11:03→17:08)
[2020-03-06] MEDS: AMLODIPINE BESYLATE 5 MG TAB PO SCH (11:03)
[2020-03-06] MEDS: MYCOPHENOLATE MOFETIL 250 MG CAP PO SCH ×2 (11:03→17:07)
[2020-03-06] MEDS: CHOLECALCIFEROL 1,000 UNIT TAB PO SCH (11:03)
[2020-03-06] MEDS: PREDNISONE 5 MG TAB PO SCH (11:03)
[2020-03-06] MEDS: TACROLIMUS 1 MG CAP PO SCH ×2 (11:03→17:08)
[2020-03-06] MEDS: HYDROCODONE/APAP 10MG-325MG TAB PO PRN ×2 (11:05→21:32)
[2020-03-06] MEDS ORDERED: PROPOFOL IV EMULSION 10 MG/ML 20 ML VIAL ONE (14:10)
[2020-03-06] MEDS ORDERED: ONDANSETRON HCL INJ 2MG/ML 2ML 2 MG/ML VIAL ONE (14:10)
[2020-03-06] MEDS ORDERED: LIDOCAINE HCL 2% LOCAL INJ 5 ML SDV VIAL INJ ONE (14:10)
[2020-03-06] MEDS ORDERED: SEVOFLURANE INHAL SOLN 250 ML PEN BTL ONE (14:10)
[2020-03-06] MEDS ORDERED: EPHEDRINE SULFATE INJ 50 MG/ML VIAL ONE (14:10)
[2020-03-06] MEDS ORDERED: DEXAMETHASONE SOD PHOS INJ 4 MG/ML VIAL ONE (14:10)
--- NOTE | 2020-03-06 15:59 | Operative Report ---
DATE OF PROCEDURE: 03/06/2020 SURGEON: Arcadio Schneider MD PREOPERATIVE DIAGNOSIS: Abscess of the left knee and thigh. POSTOPERATIVE DIAGNOSIS: Abscess of the left knee and thigh. OPERATIONS PERFORMED: Incision and drainage and debridement of abscess of the left knee and thigh. ANESTHESIA: General. COMPLICATIONS: None. ESTIMATED BLOOD LOSS: 25 mL. DESCRIPTION OF PROCEDURE: With the patient lying in bed in the supine position under good general anesthesia, the left leg and thigh were prepped with Betadine solution and draped in the usual manner. There was a large bulging fluid collection just lateral to the left knee, lateral to the patient's previous open wound. An incision was then made at the most dependent position of the collection and the lateral aspect of the left knee and immediately, a large amount of purulent bloody material was encountered. Cultures were taken. All the fluid was then slowly and carefully aspirated, somehow it was rather thick. There was also quite a bit of tendinous and muscular material, which was necrotic, which was old debrided. The top of the abscess in the lower thigh was then identified and a second opening was made at the top of the abscess cavity so that we could get better access to it and the wound was then debrided as best as we could of the necrotic muscle, tendon, and bloody material. After this was done, the wound was then copiously irrigated with dilute Betadine solution, a seton was placed into communicated 2 incisions using a quarter-inch Becket drain, which was sewn to itself with a 2-0 silk suture and the wound was then packed with iodoform gauze. The dressing was applied. The sponge, lap, and needle count was correct. The patient tolerated the procedure well and returned to the recovery room in stable condition. MD PASQUALE Beltran/MODL /[id number]
[2020-03-06] MEDS ORDERED: AMLODIPINE BESYLATE 5 MG TAB PO ONE (17:00)
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
[2020-03-07] VITALS (8 sets, daily range): BP systolic 132–148; BP diastolic 53–88
[2020-03-07] MEDS: MEROPENEM 1GM 100 ML IV SCH ×3 (05:25→20:55)
[2020-03-07 06:14] LABS: BASOPHILS % 0.1 % (0.0-1.0); HEMATOCRIT 30.3 % (34.2-44.1); HEMOGLOBIN 9.2 g/dL (12.0-16.0); LYMPHOCYTES # (AUTO) 0.8 (1.0-3.2); LYMPHOCYTES % 8.9 % (18.0-39.1); MEAN CORPUSCULAR HEMOGLOBIN 28.1 pg (28-32); MEAN CORPUSCULAR HGB CONC 30.4 g/dL (31-35); MEAN CORPUSCULAR VOLUME 92.7 fL (81-99); MONOCYTES # (AUTO) 0.4 (0.2-0.8); MONOCYTES % 4.8 % (4.4-11.3); NEUTROPHILS # (AUTO) 7.4 (2.1-6.9); NEUTROPHILS % 85.5 % (38.7-80.0); PLATELET COUNT 273 x10e3/uL (140-360); RED BLOOD COUNT 3.27 x10e6/uL (3.6-5.1); RED CELL DISTRIBUTION WIDTH 14.1 % (11.7-14.4)
[2020-03-07 06:33] LABS: CALCIUM 8.5 mg/dL (8.4-10.2); CREATININE, SERUM 1.27 mg/dL (0.57-1.11)
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
[2020-03-07] MEDS: CHOLESTYRAMINE 4 GM PACKET PO SCH ×2 (09:45→17:45)
[2020-03-07] MEDS: INSULIN REGULAR, HUMAN 100 UNIT/1 ML 3ML VIAL SQ SCH ×4 (09:45→21:30)
[2020-03-07] MEDS: TACROLIMUS 1 MG CAP PO SCH ×2 (09:45→17:45)
[2020-03-07] MEDS: AMLODIPINE BESYLATE 5 MG TAB PO SCH ×2 (09:45→18:00)
[2020-03-07] MEDS: CHOLECALCIFEROL 1,000 UNIT TAB PO SCH (09:45)
[2020-03-07] MEDS: PREDNISONE 5 MG TAB PO SCH (09:45)
[2020-03-07] MEDS: MYCOPHENOLATE MOFETIL 250 MG CAP PO SCH ×2 (09:45→17:45)
[2020-03-07] MEDS: HYDROCODONE/APAP 10MG-325MG TAB PO PRN (09:57)
[2020-03-07] MEDS: SODIUM CHLORIDE 0.9% 1000ML 1,000 ML IV SCH ×2 (11:54→19:27)
[2020-03-08] VITALS (8 sets, daily range): BP systolic 108–140; BP diastolic 43–57
[2020-03-08] MEDS: SODIUM CHLORIDE 0.9% 1000ML 1,000 ML IV SCH ×2 (05:14→15:00)
[2020-03-08] MEDS: MEROPENEM 1GM 100 ML IV SCH ×2 (05:14→11:44)
--- NOTE | 2020-03-08 07:10 | NUR ---
RCD PT AT BED PT IS ALERT AND ORIENTED IV PATENT FAMILY AT BED SIDE BED LOW AND LOCKED CALL LIGHT IN REACH
[2020-03-08] MEDS: INSULIN REGULAR, HUMAN 100 UNIT/1 ML 3ML VIAL SQ SCH ×4 (07:30→21:25)
[2020-03-08] MEDS: AMLODIPINE BESYLATE 5 MG TAB PO SCH ×2 (09:00→16:45)
[2020-03-08] MEDS: CHOLECALCIFEROL 1,000 UNIT TAB PO SCH (09:00)
[2020-03-08] MEDS: PREDNISONE 5 MG TAB PO SCH (09:00)
[2020-03-08] MEDS: MYCOPHENOLATE MOFETIL 250 MG CAP PO SCH ×2 (09:00→16:45)
[2020-03-08] MEDS: TACROLIMUS 1 MG CAP PO SCH ×2 (09:00→16:45)
[2020-03-08] MEDS: CHOLESTYRAMINE 4 GM PACKET PO SCH ×2 (10:00→16:45)
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
[2020-03-08] MEDS: CEFEPIME 1GM/NS 0.9% 50 ML 50 ML IV SCH (14:00)
--- NOTE | 2020-03-08 14:55 | NUR ---
PICC TEAM IS NOT ABLE TO DO THE PICC LINE NOTIFIED DR MOLINA GOT THE ORDER TO MID LINE PLACEMENT
--- NOTE | 2020-03-08 15:11 | NUR ---
Spoke to pt and Fermín at bedside. Informed of order for IV abx. Pt currently on service with [facility]. [facility] can use any infusion company that takes pt's insurance for IV abx. Pt's signed choice for [facility] for IV abx and [facility] for HH. Copy of choice letter given to . IMM letter discussed. They verbalized understanding. Copy given to . Signed choice letter and IMM filed in chart. IV abx referral sent to [facility]. ANGELA Simon with [facility] was notified of referral. Informed her pt on service with [facility]. BRAXTON called and spoke with Jenelle with [facility] and verified pt currently on service. Pt currently getting SN, PT, OT.
--- NOTE | 2020-03-08 15:25 | NUR ---
Resumption of home health order faxed to [facility].
--- NOTE | 2020-03-08 18:44 | NUR ---
PT RESTING ON BED BED SIDE REPORT GIVEN TO ONCOMING NURSE
--- NOTE | 2020-03-08 20:19 | NUR ---
RECEIVED PT IN BED AOX3 PT IS LEGALLY BLIND TELE SHOWS SR LEFT KNEE INCISION DENIES PAIN RESPIRATIONS ARE EVEN AND UNLABORED FAMILY AT THE BEDSIDE ,CALL LIGHT WITH IN REACH CONTINUE TO MONITOR
[2020-03-09] VITALS (8 sets, daily range): BP systolic 128–148; BP diastolic 44–56
[2020-03-09] MEDS: SODIUM CHLORIDE 0.9% 1000ML 1,000 ML IV SCH ×3 (01:00→22:40)
[2020-03-09] MEDS: CEFEPIME 1GM/NS 0.9% 50 ML 50 ML IV SCH ×2 (02:00→14:25)
--- NOTE | 2020-03-09 05:58 | NUR ---
PT RESTED DURING THE NIGHT, DENIES PAIN , FAMILY AT THE BED SIDE CALL LIGHT WITH IN REACH.CONTINUE TO MONITOR
--- NOTE | 2020-03-09 07:22 | NUR ---
BEDSIDE REPORT GIVEN TO THE ON COMING NURSE .PT IS STABLE
[2020-03-09] MEDS: INSULIN REGULAR, HUMAN 100 UNIT/1 ML 3ML VIAL SQ SCH ×4 (07:30→22:44)
[2020-03-09] MEDS: MYCOPHENOLATE MOFETIL 250 MG CAP PO SCH ×2 (08:30→17:07)
[2020-03-09] MEDS: TACROLIMUS 1 MG CAP PO SCH ×2 (08:31→17:07)
[2020-03-09] MEDS: PREDNISONE 5 MG TAB PO SCH (08:31)
[2020-03-09] MEDS: CHOLECALCIFEROL 1,000 UNIT TAB PO SCH (08:31)
[2020-03-09] MEDS: AMLODIPINE BESYLATE 5 MG TAB PO SCH ×2 (08:31→17:07)
--- NOTE | 2020-03-09 08:55 | NUR ---
Pt. expressed no spiritual or emotional concerns at this time. Pt's at bedside. [facility] provided hospitality and information on how to reach general machine operator, if needed. ANDRIA MENDEZ [facility] Spiritual [facility] Department O: [phone]
[2020-03-09] MEDS: CHOLESTYRAMINE 4 GM PACKET PO SCH ×2 (10:10→17:07)
--- NOTE | 2020-03-09 12:13 | NUR ---
SPOKE WITH VIDHYA WEBB AT [facility] WHO STATES IV ABX ARE ARRANGED AND REP WILL BE HERE TODAY AT 2PM TO REGARDING IV ABX - AT BS CM FAXED WOUND CARE ORDERS TO [facility] AT [phone] WILL FAX PICC LINE REPORT WHEN AVAILABLE IN EMR PT'S REQUESTING WHEELCHAIR; CM INSTRUCTED HIM TO ASK DR CROW FOR ORDER AND WE WILL ARRANGE
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
--- NOTE | 2020-03-09 17:52 | Consultation ---
DATE OF CONSULTATION: Wound Consultation HISTORY OF PRESENT ILLNESS: A 69-year-old female patient with history of renal failure, renal transplant in 2002. The patient injured the left knee in 2015, followed by infection, non-healing ulcer, had surgery and several types of wound care treatments including wound VAC, local vancomycin application. The patient legally blind, bed-bound. PAST MEDICAL HISTORY: Diabetes mellitus. The patient was followed with Dr. Lamar, [facility] [place]; however, he has moved to [place], so the patient's wants to find a doctor locally for wound care. The patient was treated multiple times with antibiotics and seen by legal recovery specialist, . She was admitted at this time with left lateral knee abscess incision and drainage done with a [place]. End-stage renal disease, status post kidney transplant. ALLERGIES: ASPIRIN, LEVAQUIN, AND SEPTRA. PERSONAL HISTORY: No history of smoking or alcohol. PHYSICAL EXAMINATION: VITAL SIGNS: Height is 6 feet 6 inch. Weight 150 pounds. HEENT: Normal. NECK: No JVD. measures 5 x 0.5 cm, undermining 5 cm between 3 and 12 o'clock position and there is a postsurgical wound incision and drainage with [place], drainage is clear. 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 PLAN: Wound cleaned with normal saline, packed with Maxorb Ag, 4x4's, Kerlix, and tape. Applied 4x4's to the postsurgical wound. Advised to follow up in Wound Clinic. The patient will be discharged with IV antibiotics. Home health orders given. MD DUSTIN Willis/MICHAEL /[id number]
--- NOTE | 2020-03-09 19:25 | NUR ---
WALKING ROUNDS COMPLETE, REPORT GIVEN TO ONCOMING NURSE
--- NOTE | 2020-03-09 20:01 | NUR ---
RECEIVED PT IN BED AOX3 TELE SHOWS LEFT KNEE INCISION WITH DRESSING DRY AND INTACT DENIES PAIN RESPIRATIONS ARE EVEN AND UNLABORED FAMILY AT THE BEDSIDE ,CALL LIGHT WITH IN REACH CONTINUE TO MONITOR
[2020-03-10] VITALS: BP 129/51
[2020-03-10] MEDS: CEFEPIME 1GM/NS 0.9% 50 ML 50 ML IV SCH (02:00)
[2020-03-10 04:00] VITALS: BP 132/48
--- NOTE | 2020-03-10 06:06 | NUR ---
PT RESTED DURING THE NIGHT ,DENIES PAIN .FAMILY NEAR TO THE BEDSIDE ,CONTINUE TO MONITOR
[2020-03-10] MEDS: SODIUM CHLORIDE 0.9% 1000ML 1,000 ML IV SCH (07:00)
--- NOTE | 2020-03-10 07:23 | NUR ---
BEDSIDE REPORT GIVEN TO THE ONCOMING NURSE
[2020-03-10] MEDS: CHOLESTYRAMINE 4 GM PACKET PO SCH (09:24)
[2020-03-10] MEDS: AMLODIPINE BESYLATE 5 MG TAB PO SCH (09:26)
[2020-03-10] MEDS: PREDNISONE 5 MG TAB PO SCH (09:26)
[2020-03-10] MEDS: MYCOPHENOLATE MOFETIL 250 MG CAP PO SCH (09:26)
[2020-03-10] MEDS: INSULIN REGULAR, HUMAN 100 UNIT/1 ML 3ML VIAL SQ SCH ×2 (09:26→12:16)
[2020-03-10] MEDS: CHOLECALCIFEROL 1,000 UNIT TAB PO SCH (09:27)
[2020-03-10] MEDS: TACROLIMUS 1 MG CAP PO SCH (09:27)
[2020-03-10 09:40] VITALS: BP 122/40
[2020-03-10 10:48] VITALS: BP 122/40
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
--- NOTE | 2020-03-10 13:32 | Progress Note ---
DATE: SUBJECTIVE: Ms. Orellana is doing well. There are no new complaints. REVIEW OF SYSTEMS: Otherwise, unremarkable. PHYSICAL EXAMINATION: GENERAL: She is currently alert, does not seem to be in acute distress. VITAL SIGNS: Stable, afebrile. HEENT: She is not icteric. NECK: Supple. CHEST: Clear bilateral. HEART: S1, S2. ABDOMEN: Soft. EXTREMITIES: The knee is still draining, was getting better. IMPRESSION: Infected knee, will treat as osteo. She is legally blind. Continue IV antibiotic as ordered. We will follow. MD YASEMIN Herrera/MODL /[id number]
[2020-03-10 13:41] VITALS: BP 127/43
--- NOTE | 2020-03-10 14:58 | NUR ---
Per Joanna with [facility], teaching was completed for pt yesterday. Wound care order faxed to [facility]. CM called and left message for intake informing them that plan is for pt to discharge today. Left callback number.
--- NOTE | 2020-03-10 15:32 | NUR ---
BRAXTON spoke to Julia at [facility]. Confirmed that they did receive resumption and wound care orders. CM informed her that pt will discharge today. They will schedule pt to be seen. Received order for wheelchair for pt. Spoke to pt and at bedside. Pt has a wheelchair that's 10 years old and they are requesting a new one. CM informed them that we can send the referral but insurance may require additional documentation. Pt's verbalized understanding and said they will follow up with Dr. Duenas, pt's PCP, if more documentation needed. Choice letter signed for [facility], [email or web address], and [facility]. Copy given to pt's . IMM letter explained. Pt stated she's ready to go home. Copy given to pt's . Signed choice letter and IMM letter placed in chart. Order for wheelchair and clinical faxed to [facility] at [phone] / . [facility] was notified of referral.
== END 2020-03-10 15:45 | disposition home health service (06) | DRG 500 ==
LOC: ER 19:47 → ERHOLD 19:48 → MED/SURG2 03-05 15:59
PROC: 0J9M0ZZ Drainage of Left Upper Leg Subcutaneous Tissue and Fascia, Open Approach (ICD-10-PCS; principal; 2020-03-06 08:00)
DX: M71.062 Abscess of bursa, left knee (principal); N18.6 End stage renal disease; L02.214 Cutaneous abscess of groin; Z94.0 Kidney transplant status; E11.69 Type 2 diabetes mellitus with other specified complication; H54.8 Legal blindness, as defined in USA; E11.22 Type 2 diabetes mellitus with diabetic chronic kidney disease; Z74.01 Bed confinement status; E66.9 Obesity, unspecified; Z68.24 Body mass index [BMI] 24.0-24.9, adult; Z20.828 Contact with and (suspected) exposure to other viral communicable diseases
CPT/HCPCS: 36415; 80048; 80053; 82550; 82553; 82948; 83605; 84484; 85025; 87040; 87071; 87075; 87186; 87205; 99251; 99284; J0692; J1100; J1817; J2001; J2405; J3010; J7030; J7507; J7512

== ENCOUNTER → 2020-03-12 | Outpatient (CLI) | payer MEDICARE, OTHER ==
[~2020-03-12] MED LIST changes: +CEFAZOLIN SOD 1 GM/NS 50ML 50 ML IV ONE; +FENTANYL CITRATE/PF 100MCG/2 ML INJ ONE; +FERROUS SULFAT325 MG PO; +HEPARIN SOD (PORCINE) 1000 UNIT/ML SDV ONE; +IRON325 M1 PO; +KEFLEX500 MG; +LIDOCAINE HCL 1% LOCAL INJ 20 ML VIAL ONE; +MIDAZOLAM HCL 2 MG/2 ML VIAL ONE; +NORVASC2.5 MG; +SODIUM CHLORIDE 0.9% 250ML 250 ML ONE; +VANCOCIN HCL125 MG PO
== END ==
LOC: DX 13:17
PROVIDERS: ATTEND Internal Medicine Infectious Disease
DX: A04.71 Enterocolitis due to Clostridium difficile, recurrent (principal)
CPT/HCPCS: 36558; 76937; 77001; J0690; J1644; J2001; J2250; J3010; J7050

== ENCOUNTER 2020-03-18 23:53 | Inpatient (IN) | payer MEDICARE, OTHER ==
[~2020-03-18] VITALS: Ht 167.6 cm; Wt 65.8 kg
[~2020-03-18 23:53] MED LIST changes: -CEFAZOLIN SOD 1 GM/NS 50ML 50 ML IV ONE; -FENTANYL CITRATE/PF 100MCG/2 ML INJ ONE; -FERROUS SULFAT325 MG PO; -HEPARIN SOD (PORCINE) 1000 UNIT/ML SDV ONE; -IRON325 M1 PO; -LIDOCAINE HCL 1% LOCAL INJ 20 ML VIAL ONE; -MIDAZOLAM HCL 2 MG/2 ML VIAL ONE; -SODIUM CHLORIDE 0.9% 250ML 250 ML ONE; -VANCOCIN HCL125 MG PO
[2020-03-19 02:10] VITALS: BP 160/53
[2020-03-19 08:12] VITALS: BP 116/48
[2020-03-19 08:30] VITALS: BP 116/48
[2020-03-19] MEDS ORDERED: HYDROCODONE/APAP 10MG-325MG TAB PO PRN (10:30)
[2020-03-19] MEDS ORDERED: NON-FORMULARY MEDICATION (Ondansetron Hcl* (Zofran*) 4 MG) PO PRN (10:30)
[2020-03-19] MEDS ORDERED: ONDANSETRON HCL 4 MG ORAL DISINTEGRATING TAB PO PRN (10:45)
[2020-03-19 11:54] VITALS: BP 128/44
[2020-03-19] MEDS: HYDROCORTISONE 2.5% PR CRM 1 OZ TUBE PR SCH ×2 (15:51→21:00)
[2020-03-19 16:18] VITALS: BP 142/50
[2020-03-19] MEDS: TACROLIMUS 1 MG CAP PO SCH (17:11)
[2020-03-19] MEDS: MYCOPHENOLATE MOFETIL 250 MG CAP PO SCH (17:11)
[2020-03-19] MEDS: VANCOMYCIN 250MG/5ML ORAL SOLN PO SCH (17:12)
[2020-03-19] MEDS ORDERED: CHOLESTYRAMINE 4 GM PACKET PO SCH (18:00)
[2020-03-19 20:00] VITALS: BP 165/62
[2020-03-19] MEDS: CHOLESTYRAMINE 4 GM PACKET PO SCH (22:56)
[2020-03-20] VITALS (8 sets, daily range): BP systolic 148–187; BP diastolic 58–74
[2020-03-20] MEDS: VANCOMYCIN 250MG/5ML ORAL SOLN PO SCH ×5 (00:56→23:43)
[2020-03-20 06:55] LABS: BASOPHILS % 0.2 % (0.0-1.0); EOSINOPHILS # (AUTO) 0.3 (0.0-0.4); EOSINOPHILS % 1.8 % (0.0-6.0); HEMATOCRIT 24.6 % (34.2-44.1); HEMOGLOBIN 7.4 g/dL (12.0-16.0); LYMPHOCYTES # (AUTO) 1.9 (1.0-3.2); LYMPHOCYTES % 11.8 % (18.0-39.1); MEAN CORPUSCULAR HEMOGLOBIN 28.7 pg (28-32); MEAN CORPUSCULAR HGB CONC 30.1 g/dL (31-35); MEAN CORPUSCULAR VOLUME 95.3 fL (81-99); MONOCYTES # (AUTO) 0.6 (0.2-0.8); MONOCYTES % 3.4 % (4.4-11.3); NEUTROPHILS # (AUTO) 13.1 (2.1-6.9); NEUTROPHILS % 82.2 % (38.7-80.0); PLATELET COUNT 176 x10e3/uL (140-360); RED BLOOD COUNT 2.58 x10e6/uL (3.6-5.1); RED CELL DISTRIBUTION WIDTH 14.9 % (11.7-14.4)
[2020-03-20 07:13] LABS: ALBUMIN/GLOBULIN RATIO 0.6 (0.8-2.0); ALKALINE PHOSPHATASE 69 IU/L (40-150); ANION GAP 9.5 mmol/L (8-16); BLOOD UREA NITROGEN 19 mg/dL (7-26); BUN/CREATININE RATIO 14 (6-25); CALCIUM 7.7 mg/dL (8.4-10.2); CARBON DIOXIDE 23 mmol/L (22-29); CHLORIDE 109 mmol/L (98-107); CREATININE, SERUM 1.37 mg/dL (0.57-1.11); EST GLOMERULAR FILTRATION RATE 38 ML/MIN (60-); GLUCOSE 147 mg/dL (74-118); POTASSIUM 3.5 mmol/L (3.5-5.1); SODIUM 138 mmol/L (136-145)
[2020-03-20 07:17] LABS: ALANINE AMINOTRANSFERASE < 6 IU/L (0-55)
[2020-03-20 08:13] LABS: EOSINOPHILS % (MANUAL) 4 % (0-7); LYMPHOCYTES % (MANUAL) 9 % (19-48); MONOCYTES % (MANUAL) 4 % (3.4-9.0); NEUTROPHILS % (MANUAL) 83 % (40-74); PLATELET ESTIMATE ADEQUATE; PLATELET MORPHOLOGY COMMENT NORMAL; RBC MORPHOLOGY COMMENT ABNORMAL
[2020-03-20] MEDS: PREDNISONE 5 MG TAB PO SCH (08:35)
[2020-03-20] MEDS: TACROLIMUS 1 MG CAP PO SCH ×2 (08:35→17:50)
[2020-03-20] MEDS: CHOLECALCIFEROL 1,000 UNIT TAB PO SCH (08:35)
[2020-03-20] MEDS: MYCOPHENOLATE MOFETIL 250 MG CAP PO SCH ×2 (08:35→17:50)
[2020-03-20] MEDS: CHOLESTYRAMINE 4 GM PACKET PO SCH ×2 (08:36→22:34)
[2020-03-20] MEDS ORDERED: NON-FORMULARY MEDICATION (Cholecalciferol (Vitamin D3) (Vitamin D3) 1 TAB) PO SCH (09:00)
[2020-03-20] MEDS: HYDROCORTISONE 2.5% PR CRM 1 OZ TUBE PR SCH ×3 (09:47→21:00)
[2020-03-20] MEDS ORDERED: POTASSIUM CHLORIDE 10MEQ EA PO ONE (11:30)
[2020-03-21] VITALS: BP 184/66
[2020-03-21 04:00] VITALS: BP 189/65
[2020-03-21] MEDS: VANCOMYCIN 250MG/5ML ORAL SOLN PO SCH ×2 (06:01→11:57)
[2020-03-21 06:52] LABS: BASOPHILS % 0.3 % (0.0-1.0); EOSINOPHILS # (AUTO) 0.2 (0.0-0.4); EOSINOPHILS % 1.9 % (0.0-6.0); HEMATOCRIT 25.8 % (34.2-44.1); HEMOGLOBIN 7.7 g/dL (12.0-16.0); LYMPHOCYTES # (AUTO) 1.9 (1.0-3.2); LYMPHOCYTES % 15.8 % (18.0-39.1); MEAN CORPUSCULAR HEMOGLOBIN 27.9 pg (28-32); MEAN CORPUSCULAR HGB CONC 29.8 g/dL (31-35); MEAN CORPUSCULAR VOLUME 93.5 fL (81-99); MONOCYTES # (AUTO) 0.5 (0.2-0.8); MONOCYTES % 4.4 % (4.4-11.3); NEUTROPHILS # (AUTO) 9.1 (2.1-6.9); NEUTROPHILS % 77.1 % (38.7-80.0); PLATELET COUNT 188 x10e3/uL (140-360); RED BLOOD COUNT 2.76 x10e6/uL (3.6-5.1); RED CELL DISTRIBUTION WIDTH 14.7 % (11.7-14.4)
[2020-03-21 07:20] LABS: ALBUMIN 2.2 g/dL (3.5-5.0); ALBUMIN/GLOBULIN RATIO 0.6 (0.8-2.0); ALKALINE PHOSPHATASE 74 IU/L (40-150); BLOOD UREA NITROGEN 17 mg/dL (7-26); BUN/CREATININE RATIO 13 (6-25); CALCIUM 7.9 mg/dL (8.4-10.2); CARBON DIOXIDE 24 mmol/L (22-29); CHLORIDE 111 mmol/L (98-107); CREATININE, SERUM 1.35 mg/dL (0.57-1.11); EST GLOMERULAR FILTRATION RATE 39 ML/MIN (60-); GLUCOSE 164 mg/dL (74-118); SODIUM 141 mmol/L (136-145)
[2020-03-21 07:25] LABS: ALANINE AMINOTRANSFERASE < 6 IU/L (0-55)
[2020-03-21 07:33] VITALS: BP 183/63
[2020-03-21 07:45] VITALS: BP 183/63
[2020-03-21] MEDS ORDERED: DIPHENHYDRAMINE HCL 25 MG CAP PO ONE (08:30)
[2020-03-21] MEDS: CHOLECALCIFEROL 1,000 UNIT TAB PO SCH (08:30)
[2020-03-21] MEDS: MYCOPHENOLATE MOFETIL 250 MG CAP PO SCH (08:30)
[2020-03-21] MEDS: HYDROCORTISONE 2.5% PR CRM 1 OZ TUBE PR SCH (08:34)
[2020-03-21] MEDS ORDERED: IRON SUCROSE 100 MG in SODIUM CHLORIDE 0.9% 100 ML 100 ML IV SCH ×2 (09:00→09:30)
[2020-03-21] MEDS ORDERED: SODIUM CHLORIDE 0.9% 500ML 500 ML ONE (09:50)
[2020-03-21] MEDS: PREDNISONE 5 MG TAB PO SCH (09:51)
[2020-03-21] MEDS: TACROLIMUS 1 MG CAP PO SCH (09:51)
[2020-03-21 11:35] VITALS: BP 177/78
[2020-03-21] MEDS: CHOLESTYRAMINE 4 GM PACKET PO SCH (11:57)
[2020-03-21] MEDS ORDERED: FERROUS SULFAT325 MG PO (13:23)
[2020-03-21] MEDS ORDERED: IRON325 M1 PO (13:23)
[2020-03-21] MEDS ORDERED: VANCOCIN HCL125 MG PO (13:32)
== END 2020-03-21 14:18 | disposition home or self-care (01) | DRG 871 ==
LOC: MED/SURG3 23:53
DX: A41.89 Other specified sepsis (principal); G93.41 Metabolic encephalopathy; M86.662 Other chronic osteomyelitis, left tibia and fibula; A04.72 Enterocolitis due to Clostridium difficile, not specified as recurrent; N17.9 Acute kidney failure, unspecified; Z94.0 Kidney transplant status; L02.416 Cutaneous abscess of left lower limb; H54.8 Legal blindness, as defined in USA; E11.22 Type 2 diabetes mellitus with diabetic chronic kidney disease; D63.1 Anemia in chronic kidney disease; I13.10 Hypertensive heart and chronic kidney disease without heart failure, with stage 1 through stage 4 chronic kidney disease, or unspecified chronic kidney disease; N18.30 Chronic kidney disease, stage 3 unspecified; Z74.01 Bed confinement status; Z20.828 Contact with and (suspected) exposure to other viral communicable diseases; D50.9 Iron deficiency anemia, unspecified; Z88.1 Allergy status to other antibiotic agents; Z88.2 Allergy status to sulfonamides; Z88.8 Allergy status to other drugs, medicaments and biological substances
CPT/HCPCS: 36415; 80053; 82607; 82728; 82747; 82948; 83540; 83605; 84466; 85025; 85651; 86140; 87493; J1756; J7040; J7507; J7512; U0002

== ENCOUNTER 2020-08-01 20:14 | Inpatient (IN) | payer MEDICARE, OTHER ==
[~2020-08-01] VITALS: Ht 165.1 cm; Wt 82.3 kg
[~2020-08-01 20:14] MED LIST changes: +FERROUS SULFAT325 MG PO; +IRON325 M1 PO; +VANCOCIN HCL125 MG PO
[2020-08-01] MEDS ORDERED: SODIUM CHLORIDE 0.9% 1000ML 1,000 ML IV STA ×2 (20:41)
[2020-08-01] MEDS ORDERED: CEFTRIAXONE SOD 1 GM/50 ML BAG IV ONE (20:45)
[2020-08-01] MEDS ORDERED: ASPIRIN 81 MG CHEW TAB PO ONE (20:45)
[2020-08-01 21:10] LABS: BASOPHILS # (AUTO) 0.1 (0.0-0.1); BASOPHILS % 0.3 % (0.0-1.0); EOSINOPHILS # (AUTO) 0.1 (0.0-0.4); EOSINOPHILS % 0.4 % (0.0-6.0); HEMATOCRIT 31.6 % (34.2-44.1); HEMOGLOBIN 9.2 g/dL (12.0-16.0); LYMPHOCYTES # (AUTO) 1.3 (1.0-3.2); LYMPHOCYTES % 6.6 % (18.0-39.1); MEAN CORPUSCULAR HEMOGLOBIN 27.1 pg (28-32); MEAN CORPUSCULAR HGB CONC 29.1 g/dL (31-35); MEAN CORPUSCULAR VOLUME 93.2 fL (81-99); MONOCYTES # (AUTO) 1.5 (0.2-0.8); MONOCYTES % 7.2 % (4.4-11.3); NEUTROPHILS % 84.9 % (38.7-80.0); PLATELET COUNT 252 x10e3/uL (140-360); RED BLOOD COUNT 3.39 x10e6/uL (3.6-5.1); RED CELL DISTRIBUTION WIDTH 16.6 % (11.7-14.4)
[2020-08-01] MEDS ORDERED: CEFTRIAXONE SOD 1 GM in DEXTROSE 5% 50ML 50 ML IV ONE (21:15)
[2020-08-01 21:30] LABS: ALBUMIN 2.3 g/dL (3.5-5.0); ALBUMIN/GLOBULIN RATIO 0.6 (0.8-2.0); CALCIUM 8.1 mg/dL (8.4-10.2); CREATININE, SERUM 2.48 mg/dL (0.57-1.11)
[2020-08-01] MEDS ORDERED: CEFTRIAXONE SOD 1 GM VIAL ONE (21:43)
[2020-08-01 21:56] LABS: CREATINE KINASE MB 0.1 ng/mL (0-5.0)
[2020-08-01 22:14] LABS: ABG HCO3 18 mmol/L (22-26); ABG PCO2 32 mmHg (35-45); ABG PH 7.36 (7.35-7.45); ABG PO2 441 mmHg (80-105)
[2020-08-01 22:15] LABS: ABG TCO2 19
[2020-08-01] MEDS ORDERED: VANCOMYCIN 1GM/NS 250 ML 250 ML IV STA (22:31)
[2020-08-01] MEDS ORDERED: METRONIDAZOLE 500MG/NS 100ML 100 ML IV STA (22:31)
[2020-08-02] VITALS (23 sets, daily range): BP systolic 91–139; BP diastolic 22–94
[2020-08-02] MEDS ORDERED: SODIUM CHLORIDE 0.9% 1000ML 1,000 ML IV ONE (00:30)
[2020-08-02 00:58] LABS: COLOR,URINE AMBER (YELLOW)
[2020-08-02 00:59] LABS: CLARITY,URINE CLOUDY (CLEAR); KETONES,URINE NEGATIVE (NEGATIVE); LEUKOCYTE ESTERASE ,URINE 2+ (NEGATIVE); NITRITE,URINE NEGATIVE (NEGATIVE); PROTEIN,URINE DIPSTICK 2+ (NEGATIVE); URINE UROBILINOGEN 0.2 mg/dL (0.2 - 1)
[2020-08-02 01:03] LABS: BACTERIA,URINE MANY /HPF; EPITHELIAL CELLS,URINE FEW /LPF; RBC,URINE 21-50 /HPF (0-5); WBC,URINE (MAN) >50 /HPF (0-5)
[2020-08-02] MEDS: LACTATED RINGER'S 1,000 ML INJ SCH ×2 (03:41→12:17)
[2020-08-02 05:46] LABS: CREATINE KINASE MB 0.4 ng/mL (0-5.0)
[2020-08-02] MEDS ORDERED: VANCOMYCIN 250MG/5ML ORAL SOLN PO SCH (06:00)
[2020-08-02] MEDS: VANCOMYCIN 250MG/5ML ORAL SOLN PO SCH ×4 (06:01→22:18)
[2020-08-02] MEDS: METRONIDAZOLE 500MG/NS 100ML 100 ML IV SCH ×3 (06:01→22:18)
[2020-08-02 06:09] LABS: ALBUMIN 1.8 g/dL (3.5-5.0); ALBUMIN/GLOBULIN RATIO 0.6 (0.8-2.0); ANION GAP 19.8 mmol/L (8-16); CALCIUM 7.4 mg/dL (8.4-10.2); CREATININE, SERUM 2.12 mg/dL (0.57-1.11); POTASSIUM 4.8 mmol/L (3.5-5.1)
[2020-08-02 06:24] LABS: BASOPHILS # (AUTO) 0.1 (0.0-0.1); BASOPHILS % 0.5 % (0.0-1.0); EOSINOPHILS % 0.1 % (0.0-6.0); HEMATOCRIT 30.4 % (34.2-44.1); HEMOGLOBIN 9.2 g/dL (12.0-16.0); LYMPHOCYTES # (AUTO) 0.4 (1.0-3.2); LYMPHOCYTES % 1.9 % (18.0-39.1); MEAN CORPUSCULAR HEMOGLOBIN 27.5 pg (28-32); MEAN CORPUSCULAR HGB CONC 30.3 g/dL (31-35); MEAN CORPUSCULAR VOLUME 90.7 fL (81-99); MONOCYTES # (AUTO) 1.6 (0.2-0.8); MONOCYTES % 8.1 % (4.4-11.3); NEUTROPHILS # (AUTO) 17.7 (2.1-6.9); NEUTROPHILS % 88.9 % (38.7-80.0); PLATELET COUNT 250 x10e3/uL (140-360); RED BLOOD COUNT 3.35 x10e6/uL (3.6-5.1); RED CELL DISTRIBUTION WIDTH 15.9 % (11.7-14.4)
[2020-08-02 06:33] LABS: MAGNESIUM 1.4 MG/DL (1.3-2.1); PHOSPHORUS 3.5 MG/DL (2.3-4.7)
[2020-08-02 06:54] LABS: THYROID STIMULATING HORMONE 0.34 uIU/mL (0.350-4.940)
[2020-08-02 08:06] LABS: ANISOCYTOSIS SLIGHT; BAND NEUTROPHILS % (MANUAL) 5 %; LYMPHOCYTES % (MANUAL) 4 % (19-48); MONOCYTES % (MANUAL) 6 % (3.4-9.0); NEUTROPHILS % (MANUAL) 84 % (40-74); PLATELET ESTIMATE ADEQUATE; PLATELET MORPHOLOGY COMMENT NORMAL; RBC MORPHOLOGY COMMENT NORMAL
[2020-08-02 12:05] LABS: CREATINE KINASE MB 0.2 ng/mL (0-5.0)
[2020-08-02] MEDS: PREDNISONE 5 MG TAB PO SCH (12:58)
[2020-08-02] MEDS: SODIUM BICARBONATE 650 MG TAB PO SCH ×2 (12:59→18:18)
[2020-08-02] MEDS ORDERED: CALCIUM GLUCONATE 10% INJ 9.3 MEQ in SODIUM CHLORIDE 0.9% 100 ML 100 ML IV ONE (13:30)
[2020-08-02] MEDS ORDERED: TACROLIMUS 1 MG CAP PO SCH (17:00)
[2020-08-02 17:45] LABS: ANION GAP 14.6 mmol/L (8-16); CALCIUM 7.9 mg/dL (8.4-10.2); CREATININE, SERUM 2.56 mg/dL (0.57-1.11); POTASSIUM 4.6 mmol/L (3.5-5.1)
[2020-08-02] MEDS: SODIUM BICARBONATE 8.4% 150 ML in DEXTROSE 5% 1,000 ML IV SCH (19:47)
[2020-08-02] MEDS: TACROLIMUS 1 MG CAP PO SCH (21:00)
[2020-08-02] MEDS ORDERED: METOCLOPRAMIDE HCL 10MG/10ML UDC ONE (21:52)
[2020-08-03] VITALS (25 sets, daily range): BP systolic 80–128; BP diastolic 30–86
[2020-08-03 04:51] LABS: BASOPHILS # (AUTO) 0.1 (0.0-0.1); BASOPHILS % 0.3 % (0.0-1.0); HEMATOCRIT 31.5 % (34.2-44.1); HEMOGLOBIN 9.5 g/dL (12.0-16.0); LYMPHOCYTES # (AUTO) 0.6 (1.0-3.2); LYMPHOCYTES % 2.6 % (18.0-39.1); MEAN CORPUSCULAR HGB CONC 30.2 g/dL (31-35); MEAN CORPUSCULAR VOLUME 89.5 fL (81-99); MONOCYTES # (AUTO) 1.3 (0.2-0.8); MONOCYTES % 5.8 % (4.4-11.3); NEUTROPHILS # (AUTO) 19.8 (2.1-6.9); NEUTROPHILS % 89.3 % (38.7-80.0); PLATELET COUNT 255 x10e3/uL (140-360); RED BLOOD COUNT 3.52 x10e6/uL (3.6-5.1); RED CELL DISTRIBUTION WIDTH 16.2 % (11.7-14.4)
[2020-08-03 05:13] LABS: ALBUMIN 1.7 g/dL (3.5-5.0); ALBUMIN/GLOBULIN RATIO 0.6 (0.8-2.0); ALKALINE PHOSPHATASE 66 IU/L (40-150); ANION GAP 17.7 mmol/L (8-16); BLOOD UREA NITROGEN 42 mg/dL (7-26); BUN/CREATININE RATIO 14 (6-25); CALCIUM 7.5 mg/dL (8.4-10.2); CARBON DIOXIDE 16 mmol/L (22-29); CHLORIDE 101 mmol/L (98-107); EST GLOMERULAR FILTRATION RATE 16 ML/MIN (60-); GLUCOSE 341 mg/dL (74-118); MAGNESIUM 1.5 MG/DL (1.3-2.1); PHOSPHORUS 4.3 MG/DL (2.3-4.7); POTASSIUM 4.7 mmol/L (3.5-5.1); SODIUM 130 mmol/L (136-145)
[2020-08-03 05:16] LABS: ALANINE AMINOTRANSFERASE < 6 IU/L (0-55)
[2020-08-03] MEDS: VANCOMYCIN 250MG/5ML ORAL SOLN PO SCH ×3 (06:00→21:30)
[2020-08-03] MEDS: METRONIDAZOLE 500MG/NS 100ML 100 ML IV SCH ×3 (06:00→21:26)
[2020-08-03] MEDS: SODIUM BICARBONATE 8.4% 150 ML in DEXTROSE 5% 1,000 ML IV SCH ×2 (07:25→21:25)
[2020-08-03] MEDS ORDERED: PREDNISONE 5 MG TAB PO SCH (09:00)
[2020-08-03] MEDS ORDERED: ALBUMIN 5% 0.05 GM/ML BTL IV ONE (09:00)
[2020-08-03] MEDS: SODIUM BICARBONATE 650 MG TAB PO SCH ×2 (09:00→16:19)
[2020-08-03 09:06] LABS: LYMPHOCYTES % (MANUAL) 3 % (19-48); METAMYELOCYTES % (MANUAL) 4 % (0-0); MONOCYTES % (MANUAL) 1 % (3.4-9.0); MYELOCYTES % (MANUAL) 1 % (0-0); NEUTROPHILS % (MANUAL) 91 % (40-74)
[2020-08-03] MEDS ORDERED: ALBUMIN 5% 250ML 250 ML IV ONE (09:30)
[2020-08-03] MEDS ORDERED: FUROSEMIDE INJ 10 MG/ML 2 ML VIAL IV ONE (09:45)
[2020-08-03] MEDS: PREDNISONE 5 MG TAB PO SCH (09:47)
[2020-08-03] MEDS: SODIUM CHLORIDE 0.9% 1000ML 1,000 ML IV SCH ×2 (14:43→16:15)
[2020-08-03] MEDS: CHOLESTYRAMINE 4 GM PACKET PO SCH (16:19)
[2020-08-03] MEDS ORDERED: DEXTROSE 50% SYRINGE 50 ML IV PRN (18:45)
[2020-08-03] MEDS: INSULIN REGULAR, HUMAN 100 UNIT/1 ML 3ML VIAL SQ SCH ×2 (19:07→22:41)
[2020-08-03] MEDS: TACROLIMUS 1 MG CAP PO SCH (21:05)
[2020-08-04] VITALS (26 sets, daily range): BP systolic 80–148; BP diastolic 36–101
[2020-08-04] MEDS: METRONIDAZOLE 500MG/NS 100ML 100 ML IV SCH ×3 (06:05→22:59)
[2020-08-04] MEDS: VANCOMYCIN 250MG/5ML ORAL SOLN PO SCH (06:05)
[2020-08-04] MEDS: SODIUM BICARBONATE 8.4% 150 ML in DEXTROSE 5% 1,000 ML IV SCH (06:20)
[2020-08-04] MEDS: SODIUM BICARBONATE 650 MG TAB PO SCH ×2 (07:58→18:16)
[2020-08-04] MEDS: PREDNISONE 5 MG TAB PO SCH (07:58)
[2020-08-04 07:59] LABS: BASOPHILS # (AUTO) 0.1 (0.0-0.1); BASOPHILS % 0.5 % (0.0-1.0); EOSINOPHILS # (AUTO) 0.1 (0.0-0.4); EOSINOPHILS % 0.2 % (0.0-6.0); HEMATOCRIT 33.4 % (34.2-44.1); LYMPHOCYTES # (AUTO) 0.7 (1.0-3.2); LYMPHOCYTES % 2.6 % (18.0-39.1); MEAN CORPUSCULAR HEMOGLOBIN 27.3 pg (28-32); MEAN CORPUSCULAR HGB CONC 29.9 g/dL (31-35); MEAN CORPUSCULAR VOLUME 91.3 fL (81-99); MONOCYTES # (AUTO) 1.5 (0.2-0.8); MONOCYTES % 5.4 % (4.4-11.3); NEUTROPHILS # (AUTO) 25.2 (2.1-6.9); NEUTROPHILS % 89.1 % (38.7-80.0); PLATELET COUNT 202 x10e3/uL (140-360); RED BLOOD COUNT 3.66 x10e6/uL (3.6-5.1); RED CELL DISTRIBUTION WIDTH 16.3 % (11.7-14.4)
[2020-08-04 08:34] LABS: ALBUMIN 1.6 g/dL (3.5-5.0); ALBUMIN/GLOBULIN RATIO 0.8 (0.8-2.0); ALKALINE PHOSPHATASE 48 IU/L (40-150); ANION GAP 12.9 mmol/L (8-16); BLOOD UREA NITROGEN 44 mg/dL (7-26); BUN/CREATININE RATIO 17 (6-25); CARBON DIOXIDE 23 mmol/L (22-29); CHLORIDE 93 mmol/L (98-107); CREATININE, SERUM 2.62 mg/dL (0.57-1.11); EST GLOMERULAR FILTRATION RATE 18 ML/MIN (60-); POTASSIUM 3.9 mmol/L (3.5-5.1); SODIUM 125 mmol/L (136-145)
[2020-08-04 08:39] LABS: ALANINE AMINOTRANSFERASE < 6 IU/L (0-55)
[2020-08-04 08:41] LABS: CALCIUM 6.5 mg/dL (8.4-10.2); GLUCOSE 505 mg/dL (74-118)
[2020-08-04] MEDS: CHOLESTYRAMINE 4 GM PACKET PO SCH ×2 (09:22→18:15)
[2020-08-04] MEDS ORDERED: ALBUMIN 25% 25GM 100ML 0.25 GM/ML BTL IV ONE (09:30)
[2020-08-04] MEDS ORDERED: INSULIN REGULAR, HUMAN 100 UNIT/1 ML 3ML VIAL IV ONE (10:05)
[2020-08-04] MEDS ORDERED: ALBUMIN 25% 25GM 100ML 100 ML IV ONE (10:15)
[2020-08-04] MEDS ORDERED: SODIUM CHLORIDE 0.9% IV SCH (10:30)
[2020-08-04] MEDS ORDERED: SODIUM BICARBONATE 8.4% IV SCH (10:30)
[2020-08-04 10:52] LABS: BAND NEUTROPHILS % (MANUAL) 3 %; LYMPHOCYTES % (MANUAL) 2 % (19-48); MONOCYTES % (MANUAL) 2 % (3.4-9.0); NEUTROPHILS % (MANUAL) 93 % (40-74)
[2020-08-04 10:53] LABS: ANISOCYTOSIS SLIGHT; BURR CELLS SLIGHT; HYPOCHROMASIA SLIGHT; OVALOCYTES MODERATE
[2020-08-04 10:54] LABS: ELLIPTOCYTE, RBC SLIGHT; TEAR DROP CELLS FEW
[2020-08-04 10:55] LABS: PLATELET ESTIMATE ADEQUATE; PLATELET MORPHOLOGY COMMENT NORMAL; RBC MORPHOLOGY COMMENT ABNORMAL
[2020-08-04] MEDS: INSULIN REGULAR, HUMAN 100 UNIT/1 ML 3ML VIAL SQ SCH (12:00)
[2020-08-04] MEDS ORDERED: CALCIUM GLUCONATE 10% INJ 9.3 MEQ in SODIUM CHLORIDE 0.9% 100 ML 100 ML IV ONE (12:00)
[2020-08-04] MEDS ORDERED: CALCIUM GLUCONATE 10% INJ 0.465 MEQ/ML VIAL ONE (12:06)
[2020-08-04] MEDS ORDERED: FUROSEMIDE INJ 10 MG/ML 4 ML VIAL IV ONE ×2 (12:15→19:40)
[2020-08-04] MEDS: SODIUM CHLORIDE 0.9% 1000ML 1,000 ML IV SCH ×2 (12:20→22:59)
[2020-08-04] MEDS: MIDODRINE HCL 5 MG TABLET PO SCH ×3 (12:20→20:27)
[2020-08-04] MEDS: VANCOMYCIN HCL 125 MG CAPSULE PO SCH ×2 (14:29→23:13)
[2020-08-04] MEDS ORDERED: DEXTROSE 50% SYRINGE 50 ML IV PRN (14:45)
[2020-08-04] MEDS ORDERED: INSULIN REGULAR, HUMAN 3ML VL 100 UNIT in SODIUM CHLORIDE 0.9% 99 ML IV SCH ×2 (14:45)
[2020-08-04 15:16] LABS: FREE T4 (FREE THYROXINE) 0.92 ng/dL (0.8-1.8); THYROID STIMULATING HORMONE 0.862 uIU/mL (0.350-4.940)
[2020-08-04] MEDS ORDERED: MYCOPHENOLATE500 MG PO (16:00)
[2020-08-04 18:38] LABS: ALBUMIN 2.2 g/dL (3.5-5.0); ALKALINE PHOSPHATASE 56 IU/L (40-150); ANION GAP 16.9 mmol/L (8-16); BLOOD UREA NITROGEN 46 mg/dL (7-26); BUN/CREATININE RATIO 17 (6-25); CALCIUM 7.2 mg/dL (8.4-10.2); CARBON DIOXIDE 18 mmol/L (22-29); CHLORIDE 97 mmol/L (98-107); CREATININE, SERUM 2.72 mg/dL (0.57-1.11); EST GLOMERULAR FILTRATION RATE 17 ML/MIN (60-); GLUCOSE 207 mg/dL (74-118); POTASSIUM 3.9 mmol/L (3.5-5.1); SODIUM 128 mmol/L (136-145)
[2020-08-04 18:39] LABS: ALANINE AMINOTRANSFERASE < 6 IU/L (0-55)
[2020-08-04] MEDS: TACROLIMUS 1 MG CAP PO SCH (22:59)
[2020-08-05] VITALS (24 sets, daily range): BP systolic 71–145; BP diastolic 39–79
[2020-08-05] MEDS ORDERED: FUROSEMIDE INJ 10 MG/ML 4 ML VIAL IV ONE (03:00)
[2020-08-05 05:52] LABS: BASOPHILS # (AUTO) 0.1 (0.0-0.1); BASOPHILS % 0.4 % (0.0-1.0); EOSINOPHILS # (AUTO) 0.1 (0.0-0.4); EOSINOPHILS % 0.5 % (0.0-6.0); LYMPHOCYTES # (AUTO) 0.7 (1.0-3.2); LYMPHOCYTES % 2.8 % (18.0-39.1); MEAN CORPUSCULAR HEMOGLOBIN 27.2 pg (28-32); MEAN CORPUSCULAR HGB CONC 31.3 g/dL (31-35); MEAN CORPUSCULAR VOLUME 87.2 fL (81-99); MONOCYTES % 3.7 % (4.4-11.3); NEUTROPHILS # (AUTO) 23.7 (2.1-6.9); NEUTROPHILS % 90.7 % (38.7-80.0); PLATELET COUNT 235 x10e3/uL (140-360); RED BLOOD COUNT 3.67 x10e6/uL (3.6-5.1); RED CELL DISTRIBUTION WIDTH 16.1 % (11.7-14.4)
[2020-08-05] MEDS: SODIUM CHLORIDE 0.9% 1000ML 1,000 ML IV SCH ×2 (06:30→11:33)
[2020-08-05 06:47] LABS: ANION GAP 9.6 mmol/L (8-16); CREATININE, SERUM 2.77 mg/dL (0.57-1.11); MAGNESIUM 1.3 MG/DL (1.3-2.1); PHOSPHORUS 2.9 MG/DL (2.3-4.7); POTASSIUM 3.6 mmol/L (3.5-5.1)
[2020-08-05 06:49] LABS: CALCIUM 6.7 mg/dL (8.4-10.2)
[2020-08-05] MEDS: METRONIDAZOLE 500MG/NS 100ML 100 ML IV SCH ×3 (07:05→20:44)
[2020-08-05] MEDS: VANCOMYCIN HCL 125 MG CAPSULE PO SCH ×3 (07:06→21:14)
[2020-08-05 07:20] LABS: ANISOCYTOSIS SLIGHT; BAND NEUTROPHILS % (MANUAL) 1 %; EOSINOPHILS % (MANUAL) 1 % (0-7); LYMPHOCYTES % (MANUAL) 4 % (19-48); MONOCYTES % (MANUAL) 1 % (3.4-9.0); NEUTROPHILS % (MANUAL) 93 % (40-74); PLATELET ESTIMATE ADEQUATE; PLATELET MORPHOLOGY COMMENT NORMAL; RBC MORPHOLOGY COMMENT NORMAL
[2020-08-05 07:21] LABS: POIKILOCYTOSIS SLIGHT
[2020-08-05] MEDS: PREDNISONE 5 MG TAB PO SCH (08:38)
[2020-08-05] MEDS: SODIUM BICARBONATE 650 MG TAB PO SCH ×2 (08:38→17:00)
[2020-08-05] MEDS: MIDODRINE HCL 5 MG TABLET PO SCH ×3 (08:38→16:00)
[2020-08-05] MEDS: TACROLIMUS 1 MG CAP PO SCH ×2 (08:38→21:00)
[2020-08-05] MEDS ORDERED: ARANESP SC SCH (09:00)
[2020-08-05] MEDS ORDERED: TACROLIMUS 1 MG CAP PO SCH (09:00)
[2020-08-05] MEDS: CHOLESTYRAMINE 4 GM PACKET PO SCH ×2 (09:46→17:00)
[2020-08-05] MEDS ORDERED: CALCIUM GLUCONATE 10% INJ 9.3 MEQ in SODIUM CHLORIDE 0.9% 100 ML 100 ML IV ONE (11:30)
[2020-08-05] MEDS ORDERED: SODIUM CHLORIDE 1 GM TAB PO ONE (12:00)
[2020-08-05] MEDS: INSULIN LISPRO 100 UNIT/1 ML 3ML VIAL SQ SCH ×2 (16:30→20:44)
[2020-08-05] MEDS: ACETAMINOPHEN 1000 MG/100 ML IV PRN (17:58)
[2020-08-05] MEDS ORDERED: ONDANSETRON HCL INJ 2MG/ML 2ML 2 MG/ML VIAL IV PRN (18:00)
[2020-08-05] MEDS ORDERED: INSULIN GLARGINE 100 UNITS/ML VIAL SQ SCH (21:00)
[2020-08-05] MEDS ORDERED: ENOXAPARIN 30 MG/0.3 ML SYR SC SCH (21:00)
[2020-08-05] MEDS ORDERED: NOREPINEPHRINE 8 MG/D5W 250 ML 250 ML ONE (23:12)
[2020-08-05] MEDS ORDERED: FUROSEMIDE INJ 10 MG/ML 10 ML VIAL IV ONE (23:45)
[2020-08-06] VITALS (27 sets, daily range): BP systolic 70–136; BP diastolic 32–92
[2020-08-06] MEDS ORDERED: ACETAMINOPHEN 1000 MG/100 ML 100 ML IV ONE (03:35)
[2020-08-06] MEDS: ACETAMINOPHEN 1000 MG/100 ML IV PRN (03:40)
[2020-08-06] MEDS ORDERED: ALBUMIN 25% 25GM 100ML 0.25 GM/ML BTL IV ONE (03:45)
[2020-08-06] MEDS ORDERED: VASOPRESSIN INJ 20 UNIT/ML VIAL ONE ×2 (05:49→05:52)
[2020-08-06] MEDS: METRONIDAZOLE 500MG/NS 100ML 100 ML IV SCH ×3 (06:00→21:37)
[2020-08-06] MEDS: VASOPRESSIN 60 UNIT in DEXTROSE 5% 50ML 57 ML IV PRN (06:00)
[2020-08-06] MEDS: VANCOMYCIN HCL 125 MG CAPSULE PO SCH ×3 (06:45→21:37)
[2020-08-06 06:55] LABS: BASOPHILS # (AUTO) 0.1 (0.0-0.1); BASOPHILS % 0.4 % (0.0-1.0); HEMATOCRIT 27.4 % (34.2-44.1); HEMOGLOBIN 8.3 g/dL (12.0-16.0); LYMPHOCYTES # (AUTO) 0.5 (1.0-3.2); LYMPHOCYTES % 2.1 % (18.0-39.1); MEAN CORPUSCULAR HEMOGLOBIN 26.9 pg (28-32); MEAN CORPUSCULAR HGB CONC 30.3 g/dL (31-35); MONOCYTES # (AUTO) 0.9 (0.2-0.8); MONOCYTES % 4.1 % (4.4-11.3); NEUTROPHILS # (AUTO) 20.5 (2.1-6.9); NEUTROPHILS % 90.1 % (38.7-80.0); PLATELET COUNT 208 x10e3/uL (140-360); RED BLOOD COUNT 3.08 x10e6/uL (3.6-5.1); RED CELL DISTRIBUTION WIDTH 16.6 % (11.7-14.4)
[2020-08-06 07:21] LABS: ALBUMIN 3.2 g/dL (3.5-5.0); ALBUMIN/GLOBULIN RATIO 2.1 (0.8-2.0); ALKALINE PHOSPHATASE 55 IU/L (40-150); BLOOD UREA NITROGEN 53 mg/dL (7-26); BUN/CREATININE RATIO 16 (6-25); CALCIUM 7.3 mg/dL (8.4-10.2); CARBON DIOXIDE 16 mmol/L (22-29); CHLORIDE 96 mmol/L (98-107); EST GLOMERULAR FILTRATION RATE 13 ML/MIN (60-); GLUCOSE 264 mg/dL (74-118); SODIUM 129 mmol/L (136-145)
[2020-08-06 07:24] LABS: ALANINE AMINOTRANSFERASE < 6 IU/L (0-55)
[2020-08-06 07:49] LABS: ANISOCYTOSIS SLIGHT; BAND NEUTROPHILS % (MANUAL) 1 %; LYMPHOCYTES % (MANUAL) 2 % (19-48); MONOCYTES % (MANUAL) 2 % (3.4-9.0); MYELOCYTES % (MANUAL) 1 % (0-0); NEUTROPHILS % (MANUAL) 94 % (40-74); OVALOCYTES FEW; PLATELET ESTIMATE ADEQUATE
[2020-08-06 07:50] LABS: PLATELET MORPHOLOGY COMMENT RARE EDTA CLUMPING
[2020-08-06 07:51] LABS: RBC MORPHOLOGY COMMENT NORMAL
[2020-08-06] MEDS: HYDROCORTISONE SOD SUCCINATE 100 MG VIAL IV SCH ×2 (08:24→13:47)
[2020-08-06] MEDS: SODIUM BICARBONATE 650 MG TAB PO SCH ×3 (08:24→21:37)
[2020-08-06] MEDS: CEFEPIME HCL 1GM 1 GM in SODIUM CHLORIDE 0.9% 50ML 50 ML IV SCH (08:24)
[2020-08-06] MEDS: INSULIN LISPRO 100 UNIT/1 ML 3ML VIAL SQ SCH ×5 (08:44→21:55)
[2020-08-06] MEDS: TACROLIMUS 1 MG CAP PO SCH ×2 (08:44→21:37)
[2020-08-06] MEDS: MIDODRINE HCL 5 MG TABLET PO SCH ×3 (08:44→15:53)
[2020-08-06] MEDS: MYCOPHENOLATE MOFETIL 360 MG PO SCH ×2 (08:44→16:11)
[2020-08-06] MEDS: CHOLESTYRAMINE 4 GM PACKET PO SCH ×2 (10:03→17:06)
[2020-08-06] MEDS: NOREPINEPHRINE INJ 4MG/4ML 8 MG in DEXTROSE 5% 250ML 250 ML IV PRN ×3 (11:58→21:55)
[2020-08-06] MEDS ORDERED: FUROSEMIDE INJ 10 MG/ML 10 ML VIAL IV ONE (13:00)
[2020-08-06] MEDS ORDERED: CALCIUM GLUCONATE 10% INJ 0.465 MEQ/ML VIAL ONE (13:18)
[2020-08-06] MEDS ORDERED: SODIUM CHLORIDE 0.9% 100 ML ONE (13:20)
[2020-08-06] MEDS ORDERED: CALCIUM GLUCONATE 10% INJ 9.3 MEQ in SODIUM CHLORIDE 0.9% 100 ML 100 ML IV ONE (13:30)
[2020-08-06] MEDS ORDERED: INSULIN GLARGINE 100 UNITS/ML VIAL SQ SCH (21:00)
[2020-08-07] VITALS (26 sets, daily range): BP systolic 60–151; BP diastolic 25–88
[2020-08-07] MEDS: SODIUM CHLORIDE 0.9% 1000ML 1,000 ML IV SCH ×3 (01:12→22:06)
[2020-08-07] MEDS: HYDROCORTISONE SOD SUCCINATE 100 MG VIAL IV SCH ×2 (01:12→15:03)
[2020-08-07] MEDS: NOREPINEPHRINE INJ 4MG/4ML 8 MG in DEXTROSE 5% 250ML 250 ML IV PRN ×5 (02:46→21:30)
[2020-08-07] MEDS: VASOPRESSIN 60 UNIT in DEXTROSE 5% 50ML 57 ML IV PRN (02:47)
[2020-08-07] MEDS: VANCOMYCIN HCL 125 MG CAPSULE PO SCH ×3 (06:50→22:00)
[2020-08-07] MEDS: METRONIDAZOLE 500MG/NS 100ML 100 ML IV SCH ×3 (06:50→22:00)
[2020-08-07 06:53] LABS: BASOPHILS # (AUTO) 0.1 (0.0-0.1); BASOPHILS % 0.3 % (0.0-1.0); HEMATOCRIT 33.7 % (34.2-44.1); HEMOGLOBIN 10.6 g/dL (12.0-16.0); LYMPHOCYTES # (AUTO) 0.3 (1.0-3.2); MEAN CORPUSCULAR HEMOGLOBIN 26.9 pg (28-32); MEAN CORPUSCULAR HGB CONC 31.5 g/dL (31-35); MEAN CORPUSCULAR VOLUME 85.5 fL (81-99); MONOCYTES % 3.2 % (4.4-11.3); NEUTROPHILS # (AUTO) 29.2 (2.1-6.9); NEUTROPHILS % 92.5 % (38.7-80.0); PLATELET COUNT 149 x10e3/uL (140-360); RED BLOOD COUNT 3.94 x10e6/uL (3.6-5.1); RED CELL DISTRIBUTION WIDTH 15.8 % (11.7-14.4)
[2020-08-07 07:15] LABS: ALBUMIN 2.4 g/dL (3.5-5.0); ALBUMIN/GLOBULIN RATIO 1.3 (0.8-2.0); ANION GAP 17.9 mmol/L (8-16); CREATININE, SERUM 3.55 mg/dL (0.57-1.11); POTASSIUM 3.9 mmol/L (3.5-5.1)
[2020-08-07] MEDS ORDERED: NOREPINEPHRINE 8 MG/D5W 250 ML 250 ML ONE ×2 (07:16→12:32)
[2020-08-07 07:19] LABS: CALCIUM 6.9 mg/dL (8.4-10.2)
[2020-08-07] MEDS ORDERED: ALBUMIN 25% 25GM 100ML 0.25 GM/ML BTL IV ONE (08:00)
[2020-08-07 08:09] LABS: BAND NEUTROPHILS % (MANUAL) 3 %; LYMPHOCYTES % (MANUAL) 1 % (19-48); MONOCYTES % (MANUAL) 1 % (3.4-9.0); NEUTROPHILS % (MANUAL) 95 % (40-74); PLATELET ESTIMATE ADEQUATE
[2020-08-07 08:10] LABS: PLATELET MORPHOLOGY COMMENT NORMAL
[2020-08-07] MEDS: MIDODRINE HCL 5 MG TABLET PO SCH ×3 (08:22→16:59)
[2020-08-07] MEDS: CEFEPIME HCL 1GM 1 GM in SODIUM CHLORIDE 0.9% 50ML 50 ML IV SCH (08:22)
[2020-08-07] MEDS: INSULIN LISPRO 100 UNIT/1 ML 3ML VIAL SQ SCH ×7 (08:22→21:00)
[2020-08-07] MEDS: SODIUM BICARBONATE 650 MG TAB PO SCH ×3 (08:23→21:00)
[2020-08-07] MEDS: MYCOPHENOLATE MOFETIL 360 MG PO SCH ×2 (08:23→16:59)
[2020-08-07] MEDS: TACROLIMUS 1 MG CAP PO SCH ×2 (08:23→21:00)
[2020-08-07] MEDS: CHOLESTYRAMINE 4 GM PACKET PO SCH ×2 (08:51→17:24)
[2020-08-07] MEDS: EPINEPHRINE HCL 1:1000 1ML 4 MG in DEXTROSE 5% 250ML 250 ML IV SCH ×4 (10:05→22:44)
[2020-08-07] MEDS ORDERED: CALCIUM GLUCONATE 10% INJ 13.95 MEQ in SODIUM CHLORIDE 0.9% 100 ML 100 ML IV ONE (12:00)
[2020-08-07] MEDS ORDERED: CEFTRIAXONE SOD 1 GM/50 ML BAG IV SCH (12:00)
[2020-08-07] MEDS ORDERED: CEFTRIAXONE SOD 1 GM in SODIUM CHLORIDE 0.9% 50ML 50 ML IV SCH (12:00)
[2020-08-07] MEDS: SODIUM CHLORIDE 1 GM TAB PO SCH ×2 (12:37→16:59)
[2020-08-07] MEDS ORDERED: INSULIN GLARGINE 100 UNITS/ML VIAL SQ SCH (21:00)
[2020-08-07] MEDS ORDERED: LORAZEPAM INJ 2 MG/ML VIAL IV PRN (22:15)
[2020-08-07] MEDS ORDERED: MORPHINE SULFATE INJ 2 MG/ML SYR IV PRN (22:15)
[2020-08-08] VITALS: BP 58/35
[2020-08-08 01:00] VITALS: BP 68/31
[2020-08-08] MEDS: VASOPRESSIN 60 UNIT in DEXTROSE 5% 50ML 57 ML IV PRN (01:44)
[2020-08-08 02:00] VITALS: BP 39/21
[2020-08-08] MEDS: HYDROCORTISONE SOD SUCCINATE 100 MG VIAL IV SCH (02:00)
== END 2020-08-08 05:20 | disposition expired | DRG 871 ==
LOC: ER 20:38 → ERHOLD 23:47 → ICU 08-02 01:38
PROC: 02HV33Z Insertion of Infusion Device into Superior Vena Cava, Percutaneous Approach (ICD-10-PCS; 2020-08-05)
PROC: 3E043XZ Introduction of Vasopressor into Central Vein, Percutaneous Approach (ICD-10-PCS; principal; 2020-08-06)
DX: A41.9 Sepsis, unspecified organism (principal); R65.21 Severe sepsis with septic shock; N17.0 Acute kidney failure with tubular necrosis; A04.72 Enterocolitis due to Clostridium difficile, not specified as recurrent; E87.2 Acidosis; E87.1 Hypo-osmolality and hyponatremia; N17.9 Acute kidney failure, unspecified; Z94.0 Kidney transplant status; N39.0 Urinary tract infection, site not specified; T86.19 Other complication of kidney transplant; M86.671 Other chronic osteomyelitis, right ankle and foot; E46 Unspecified protein-calorie malnutrition; Z94.4 Liver transplant status; I95.9 Hypotension, unspecified; N18.30 Chronic kidney disease, stage 3 unspecified; S81.001D Unspecified open wound, right knee, subsequent encounter; I12.9 Hypertensive chronic kidney disease with stage 1 through stage 4 chronic kidney disease, or unspecified chronic kidney disease; E11.22 Type 2 diabetes mellitus with diabetic chronic kidney disease; D64.9 Anemia, unspecified; E86.0 Dehydration; E83.51 Hypocalcemia; E11.42 Type 2 diabetes mellitus with diabetic polyneuropathy; B96.1 Klebsiella pneumoniae [K. pneumoniae] as the cause of diseases classified elsewhere; E11.649 Type 2 diabetes mellitus with hypoglycemia without coma; Z79.899 Other long term (current) drug therapy; Z68.30 Body mass index [BMI] 30.0-30.9, adult; H54.8 Legal blindness, as defined in USA; Z20.822 Contact with and (suspected) exposure to COVID-19
CPT/HCPCS: 36415; 36556; 51700; 70450; 71045; 74176; 74470; 76770; 76937; 77001; 80048; 80053; 80197; 81001; 82533; 82550; 82553; 82805; 82948; 83036; 83605; 83630; 83690; 83735; 83993; 84100; 84439; 84443; 84484; 85025; 86850; 86900; 87040; 87045; 87086; 87177; 87186; 87328; 87493; 93005; 93931; 93971; 96372; 97605; 99251; 99284; C1769; J0171; J0610; J0692; J0696; J1650; J1720; J1815; J1817; J1940; J2060; J2270; J2405; J3370; J7030; J7050; J7070; J7121; J7507; J7512; P9045; P9047; U0002